=== PATIENT | male | born 1950 | race Caucasian/White ===

== ENCOUNTER 2016-08-29 11:14 | Observation (INO) | payer MEDICARE ==
[~2016-08-29] VITALS: Ht 205.7 cm; Wt 96.6 kg
[2016-08-29] VITALS (17 sets, daily range): BP systolic 90–114; BP diastolic 44–68; BMI 22.8
[~2016-08-29 11:14] MED LIST: BACTRIM DS TABL1 TAB PO; COLACE100 MG PO; DOXYCYCLINE HY100 M2 PO; ELIQUIS2.5 MG PO; HYDROCODON-ACE1 EAC7 PO; HYDROCODONE-APA1 TAB PO; IBRUTINIB PO; IMBRUVICA140 MG PO; K-DUR20 MEQ PO; KLONOPIN1 MG PO; LASIX40 MG PO; LEVAQUIN500 MG PO; NORCO 10/325 TA1 TA1 PO; PROSTATE PILL; ULTRAM50 MG PO; VALIUM5 MG PO
[2016-08-29] MEDS ORDERED: ULTRAM50 MG PO (11:48)
[2016-08-29] MEDS ORDERED: IMBRUVICA140 MG PO (11:49)
[2016-08-29 12:14] LABS: BASOPHILS 1.4 % (0.0-2.0); EOSINOPHILS 0.5 % (0-7); HEMATOCRIT 23.7 % (42.0-54.0); HEMOGLOBIN 7.7 g/dL (13.5-17.5); IMMATURE GRANULOCYTES 3.3 % (0-5); LYMPHOCYTES 59.6 % (15-50); MCH 28.9 pg (26.0-34.0); MCHC 32.5 g/dL (31.0-37.0); MCV 89.1 fL (80.0-100.0); MEAN PLATELET VOLUME 10.5 fL (7.4-10.4); MONOCYTES 4.7 % (2-11); NEUTROPHILS 30.5 % (40-80); RBC 2.66 10x6/uL (4.20-6.10); RDW 22.5 % (11.5-14.5); WBC 9.3 10x3/uL (4.8-10.8)
[2016-08-29 12:15] LABS: PLATELET COUNT 170 10x3/uL (130-400)
[2016-08-29 12:37] LABS: ALBUMIN 3.7 g/dL (3.4-5.0); ALKALINE PHOSPHATASE 66 U/L (46-116); ALT (SGPT) 15 U/L (10-68); CALC OSMOLALITY 271 mosm/kg (275-300); CALCIUM 8.6 mg/dL (8.5-10.1); CARBON DIOXIDE 29.1 mmol/L (21.0-32.0); CHLORIDE - SERUM 101 mmol/L (98-107); CREATININE - SERUM 0.8 mg/dL (0.6-1.3); GLUCOSE 100 mg/dL (74-106); PROTEIN - SERUM 6.1 g/dL (6.4-8.2); SODIUM 135 mmol/L (136-145); UREA NITROGEN 17 mg/dL (7-18); eGFR NON AFRICAN AMERICAN > 90 mL/min (90-120)
--- NOTE | 2016-08-29 13:33 | NUR ---
Patient Name: ISADORA ROLDAN Admission Status: Urgent Accout number: [id number] Admission Date: 08-29-2016 : 1950 Admission Diagnosis: Attending: CARMEN Current LOS: 1 Anticipated DC Date: 09-03-2016 Planned Disposition: Home with Home Health Primary Insurance: MEDICARE A & B Discharge Planning Comments: CM MET WITH PATIENT REGARDING D/C NEEDS AND PLANS. PATIENT STATED HE LIVES AT HOME WITH HIS (TAYO) AND SHE WILL DRIVE HIM HOME WHEN DISCHARGED. PATIENT STATED HE IS INDEPENDENT WITH HIS CARE AND HAS A WALKER AT HOME. PATIENT IS CURRENT WITH [facility]/PHYSICAL THERAPY. PATIENTS PCP IS DR. URIBE AND PHARMACY IS [facility] AT [facility]. CM WILL CONTINUE TO FOLLOW PATIENT WITH D/C NEEDS AND PLANS. PCP DR. RONY FAJARDO [facility]ARMACY AT [facility]- [phone] TAYO (SPOUSE) [phone] [facility]- [phone] Reconstructive Dentist: Lidia Chamberlain Is the patient Alert and Oriented? Yes 0 * How many steps to enter\exit or inside your home? 1 FLT W/R 0 * PCP DR. URIBE 0 * Pharmacy [facility] AT [facility] 0 * Preadmission Environment Home with Family 0 * ADLs Independent 0 * Equipment Walker 0 * List name and contact numbers for known caregivers / representatives who currently or will assist patient after discharge: TAYO (SPOUSE) [phone] * Community resources currently utilized None 0 * Additional services required to return to the preadmission environment? Yes 0 * Can the patient safely return to the preadmission environment? Yes 0 * Has this patient been hospitalized within the prior 30 days at any hospital? No 0 Grand Total: 0
--- NOTE | 2016-08-29 14:14 | NUR ---
BED ALARM ON APPLIED DUE TO BENADRYL PRE OP TRANSFUSION AND SEDATION FOR SAFETY. PT AWARE AND UNDERSTANDING
[2016-08-29 14:21] LABS: APPEARANCE CLEAR (CLEAR); BACTERIA FEW /hpf (NONE SEEN); BILIRUBIN NEGATIVE (NEGATIVE); COLOR YELLOW (YELLOW); EPITHELIAL CELLS OCC /hpf (0-5); GLUCOSE NEGATIVE (NEGATIVE); KETONE NEGATIVE (NEGATIVE); LEUKOCYTE ESTERASE NEGATIVE (NEGATIVE); NITRITE NEGATIVE (NEGATIVE); PROTEIN NEGATIVE (NEGATIVE); RED CELLS - URINE RARE /hpf (0-5); SPECIFIC GRAVITY 1.015 (1.005-1.020); UROBILINOGEN NORMAL (NORMAL); WHITE CELLS - URINE RARE /hpf (0-5)
--- NOTE | 2016-08-29 19:00 | NUR ---
BEDSIDE REPORT RECEIVED AND CARE OF PT ASSUMED. PT SITTING UP IN CHAIR WITH PRBC'S INFUSING TO RIGHT FA. WILL MONITOR CLOSLEY FOR NEEDS.
--- NOTE | 2016-08-29 20:52 | NUR ---
HS MEDICATIONS GIVEN TO INCLUDE NORCO PER REQUEST FOR CHRONIC BACK PAIN. WILL CONTINUE TO MONITOR FOR NEEDS.
--- NOTE | 2016-08-29 21:15 | NUR ---
INFUSION OF PRBC'S COMPLETE. VITALS STABLE AND PT IS AFEBRILE.
[2016-08-30] VITALS: BP 114/59; BP 131/70
--- NOTE | 2016-08-30 00:53 | NUR ---
GAVE NORCO PER REQUEST FOR BACK PAIN. WILL MONITOR FOR EFFECTIVENESS. SIDE RAILS UP X2 FOR SAFETY.
[2016-08-30 04:00] VITALS: BP 94/61
[2016-08-30 07:35] LABS: BASOPHILS 1.4 % (0.0-2.0); EOSINOPHILS 2.3 % (0-7); HEMATOCRIT 27.9 % (42.0-54.0); HEMOGLOBIN 9.1 g/dL (13.5-17.5); IMMATURE GRANULOCYTES 2.7 % (0-5); LYMPHOCYTES 58.7 % (15-50); MCHC 32.6 g/dL (31.0-37.0); MCV 88.9 fL (80.0-100.0); MEAN PLATELET VOLUME 9.5 fL (7.4-10.4); MONOCYTES 6.7 % (2-11); NEUTROPHILS 28.2 % (40-80); PLATELET COUNT 136 10x3/uL (130-400); RBC 3.14 10x6/uL (4.20-6.10); RDW 21.3 % (11.5-14.5)
--- NOTE | 2016-08-30 07:40 | NUR ---
PATIENT AWAKE, ALERT AND ORIENTED X'S 4. RESPIRATIONS ARE EVEN AND UNLABORED ON ROOM AIR. PATIENT SITTING UP IN THE CHAIR. PATIENT DENIES NEEDS AT THIS TIME.
[2016-08-30 07:47] LABS: CALCIUM 9.1 mg/dL (8.5-10.1); CARBON DIOXIDE 29.3 mmol/L (21.0-32.0); CREATININE - SERUM 0.6 mg/dL (0.6-1.3); GLUCOSE 92 mg/dL (74-106); UREA NITROGEN 13 mg/dL (7-18); eGFR NON AFRICAN AMERICAN > 90 mL/min (90-120)
[2016-08-30 07:56] VITALS: BP 132/57
[2016-08-30 07:56] LABS: CALC OSMOLALITY 277 mosm/kg (275-300); CHLORIDE - SERUM 104 mmol/L (98-107); POTASSIUM - SERUM 3.7 mmol/L (3.5-5.1); SODIUM 139 mmol/L (136-145)
--- NOTE | 2016-08-30 08:00 | NUR ---
PT AWAKE AND ALERT NO ACUTE DISTRESS NOTED VOICES ALL NEEDS TO STAFF.
--- NOTE | 2016-08-30 11:00 | NUR ---
PT AWAKE AND ALERT ORINETED X 3 NO DISTRESS WANTS TO GO HOME. AWAITING REPLY FROM DR CHADWICK
[2016-08-30 12:02] VITALS: BP 104/63
[2016-08-30 12:42] VITALS: Ht 205.7 cm; Wt 96.6 kg
[2016-08-30] MEDS ORDERED: HYDROCODON-ACE1 EAC7 PO (15:24)
[2016-08-30] MEDS ORDERED: COLACE100 MG PO (15:24)
[2016-08-30] MEDS ORDERED: IMBRUVICA140 MG PO (15:24)
[2016-08-30] MEDS ORDERED: ULTRAM50 MG PO (15:24)
[2016-08-30] MEDS ORDERED: BACTRIM DS TABL1 TAB PO (15:24)
[2016-08-30] MEDS ORDERED: KLONOPIN1 MG PO (15:24)
--- NOTE | 2016-08-30 15:30 | NUR ---
RECIEVED TO FROM DR JONES TO DISCHARGE TO HOME CONTINUE HOME MEDS AND COME TO CLINIC TO PIC UP REFILL PERSCRIPTIONS.
[2016-08-30 15:31] VITALS: BP 117/63
--- NOTE | 2016-08-30 16:45 | NUR ---
PT DISCHARGED AT THIS [facility] IV D/C CATH TIP INTACT PRESSURE DRESSING APPLIED TO PREVENT BLEEDING.
[2016-09-28] MEDS ORDERED: ELIQUIS2.5 MG PO (12:18)
[2016-11-02] MEDS ORDERED: MULTIPLE VITAMI1 TA1 PO (11:50)
== END 2016-08-30 17:06 | disposition home health service (06) ==
LOC: D.MS 11:14 → OBSVTIME 11:14 → D.SDCHOLD 11:14 → D.MS 11:33
PROVIDERS: ADMIT Legal Medicine
DX: C91.10 Chronic lymphocytic leukemia of B-cell type not having achieved remission (principal); R50.9 Fever, unspecified; M32.9 Systemic lupus erythematosus, unspecified; D63.0 Anemia in neoplastic disease

== ENCOUNTER → 2016-09-27 15:17 | Outpatient (CLI) | payer MEDICARE ==
[2016-08-30 12:42] VITALS: BMI 22.8
[~2016-09-27 15:17] MED LIST changes: +BACTRIM 400-801 TAB PO; +MULTIPLE VITAMI1 TA1 PO
== END | disposition home or self-care (01) ==
LOC: D.US 15:17
DX: I82.403 Acute embolism and thrombosis of unspecified deep veins of lower extremity, bilateral (principal)

== ENCOUNTER 2016-09-28 14:07 | Outpatient (CLI) | payer MEDICARE ==
[~2016-09-28] VITALS: Ht 205.7 cm; Wt 97.7 kg
[2016-09-28 12:49] VITALS: BP 106/60; Ht 205.7 cm; Wt 97.7 kg
[~2016-09-28 14:07] MED LIST changes: -BACTRIM 400-801 TAB PO; -MULTIPLE VITAMI1 TA1 PO
--- NOTE | 2016-09-28 18:57 | NUR ---
1800 IV DC WITH CATHER TIP INTACT
[2016-11-02] MEDS ORDERED: MULTIPLE VITAMI1 TA1 PO (11:50)
== END 2016-09-28 18:30 | disposition home or self-care (01) ==
LOC: D.OPS 14:07
DX: C91.10 Chronic lymphocytic leukemia of B-cell type not having achieved remission (principal); Z91.81 History of falling; D80.1 Nonfamilial hypogammaglobulinemia; R53.81 Other malaise; R53.83 Other fatigue; R11.0 Nausea

== ENCOUNTER 2016-11-02 11:55 | Outpatient (CLI) | payer MEDICARE ==
[~2016-11-02] VITALS: Ht 205.7 cm; Wt 104.5 kg
[~2016-11-02 11:55] MED LIST changes: +MULTIPLE VITAMI1 TA1 PO
[2016-11-02 11:57] VITALS: BP 114/62; Ht 205.7 cm; Wt 104.5 kg
--- NOTE | 2016-11-02 12:00 | NUR ---
1135-STARTED PERIPHERAL IV TO RIGHT WRIST TIMES ONE ATTEMPT WITH 20G.
--- NOTE | 2016-11-02 16:54 | NUR ---
1545--DC'D IV. BEE GIL 1139--DISCHARGE INSTRUCTIONS GIVEN, PT OFF UNIT VIA . BEE GIL
== END 2016-11-02 16:45 | disposition home or self-care (01) ==
LOC: D.OPS 11:55
DX: C91.10 Chronic lymphocytic leukemia of B-cell type not having achieved remission (principal)

== ENCOUNTER → 2016-11-28 12:02 | Outpatient (CLI) | payer MEDICARE ==
[2016-11-28 15:37] VITALS: BP 96/42; Ht 205.7 cm
--- NOTE | 2016-11-28 15:40 | NUR ---
1510 1ST UNIT BLOOD CHECKED AT BEDSIDE BY THIS NURSE AND ASHLEY TAPIA RN. INITIATED BY ALARIS PUMP AT 50/CC/HR. CALL LIGHT AT BEDSIDE. URINAL PROVIDED. DATASCOPE MONITORING. PT HAS ATE LUNCH. TIME FRAMES FOR BLOOD AND POST STAY GIVEN.
--- NOTE | 2016-11-28 15:42 | NUR ---
1525 DENIES PROBLEMS WITH BLOOD RATE INCREASED TO 125/CC/HR
--- NOTE | 2016-11-28 15:45 | NUR ---
1540 PT DOSING, AROUSES WITH CHECKS, DENIES PROBLEMS WITH BLOOD. RATE INCREASED TO 200/CC/HR.
--- NOTE | 2016-11-28 18:01 | NUR ---
1655 1ST UNIT COMPLETED LINE BEING FLUSHED WITH NS PT VOIDS 200CC YELLOW URINE IN URINAL. 1715 2ND UNIT CHECKED AT BEDSIDE BY NAIDA VAZQUEZ RN, INITIATED BY ALARIS PUMP AT 50/CC/HR. SUPPER TRAY SERVED. 1730 DENIES PROBLEMS WITH TRANSFUSION, EATING, RATE INCREASED TO 125/CC/HR. 1745 ATE 80% DENIES PROBLEMS, RATE INCREASED TO 200/CC/HR DOSING
--- NOTE | 2016-11-28 18:47 | NUR ---
1830 PT VOIDS 240 CC YELLOW URINE, DENIES NEEDS, IV SITE PATENT.
--- NOTE | 2016-11-28 19:14 | NUR ---
191 BLOOD COMPLETED, LINE BEING FLUSHED WITH NS.
--- NOTE | 2016-11-28 20:37 | NUR ---
2010 POST V.S. CHECK GOOD. IV DC'D WITH CATH INTACT. PT. VOIDS. RELEASED. AMB. PER PT. CHOICE.
== END | disposition home or self-care (01) ==
LOC: D.OPS 12:02
DX: D64.9 Anemia, unspecified (principal); C91.10 Chronic lymphocytic leukemia of B-cell type not having achieved remission

== ENCOUNTER 2016-12-14 08:45 | Outpatient (CLI) | payer MEDICARE ==
[~2016-12-14] VITALS: Ht 205.7 cm; Wt 96.8 kg
--- NOTE | 2016-12-14 11:30 | NUR ---
FIRST UNIT OF PRBC'S UP WITH NS AND BLOOD TUBING THROUGH 20 G IV STARTED IN LEFT FOREARM PER NAIDA VAZQUEZ RN. LUNCH TRAY SERVED. HAS BEEN PREMEDICATED ORDERED.
--- NOTE | 2016-12-14 12:00 | NUR ---
PRBC'S INFUSING WITHOUT SIGNS OF REACTION.
[2016-12-14] MEDS ORDERED: BACTRIM 400-801 TAB PO (13:44)
[2016-12-14 13:57] VITALS: BP 120/59; Ht 205.7 cm; Wt 96.8 kg
--- NOTE | 2016-12-14 14:25 | NUR ---
RESPIRATIONS WITHOUT DISTRESS. IV LINE FLUSHED WITH NS. SECOND UNIT OF PRBC'S UP WITH NS AND BLOOD TUBING. SITTING IN CHAiR READING A BOOK.
--- NOTE | 2016-12-14 16:30 | NUR ---
PRBC'S COMPLETED. LINE FLUSHED WITH NS. NO SIGNS OF TRANSFUSION REACTION.
--- NOTE | 2016-12-14 17:30 | NUR ---
NO SIGNS OF TRANSFUSION REACTION ONE HOUR AFTER FINISHING 2ND UNIT. DISCHARGE INSTRUCTIONS GIVEN, VOICED UNDERSTANDING. IV REMOVED INTACT. DISCHARGED TO HOME.
== END 2016-12-14 17:30 | disposition home or self-care (01) ==
LOC: D.OPS 08:45
DX: D64.9 Anemia, unspecified (principal); Z01.812 Encounter for preprocedural laboratory examination

== ENCOUNTER 2017-01-04 10:46 | Outpatient (CLI) | payer MEDICARE ==
[~2017-01-04] VITALS: Ht 205.7 cm; Wt 96.8 kg
[~2017-01-04 10:46] MED LIST changes: +BACTRIM 400-801 TAB PO
[2017-01-04 12:19] VITALS: BP 98/55; Ht 205.7 cm; Wt 96.8 kg
--- NOTE | 2017-01-04 12:44 | NUR ---
#20 GUAGE IV STARTED X 1 STICK. BENADRYL 25MG IV GIVEN. TYLENOL 500MG PO GIVEN. REGULAR LUNCH TRAY SERVED.
--- NOTE | 2017-01-04 13:00 | NUR ---
FIRST UNIT OF PRBC STARTED WITH NS AND BLOOD TUBING. EATING REGULAR LUNCH.
--- NOTE | 2017-01-04 19:18 | NUR ---
IV DC WITH CATHER TIP INTACT
[2017-01-05] MEDS ORDERED: AMOXICILLIN500 M1 PO (19:38)
[2017-01-05] MEDS ORDERED: COLACE100 MG PO (19:41)
[2017-01-05] MEDS ORDERED: LEVAQUIN500 MG PO (19:42)
== END 2017-01-04 19:00 | disposition home or self-care (01) ==
LOC: D.OPS 10:46
DX: D64.9 Anemia, unspecified (principal)

== ENCOUNTER 2017-01-05 18:50 | Inpatient (IN) | payer MEDICARE ==
[~2017-01-05] VITALS: Ht 205.7 cm; Wt 96.2 kg
[2017-01-05 19:32] LABS: BASOPHILS 2.2 % (0-2); EOSINOPHILS 1.7 % (0-7); HEMATOCRIT 24.1 % (42.0-54.0); HEMOGLOBIN 7.7 g/dL (13.5-17.5); LYMPHOCYTES 60.6 % (15-50); MCH 28.4 pg (26.0-34.0); MCV 88.9 fL (80.0-100.0); MONOCYTES 10.4 % (2-11); NEUTROPHILS 18.1 % (40-80); RBC 2.71 10x6/uL (4.20-6.10); RDW 19.2 % (11.5-14.5); WBC 5.9 10x3/uL (4.8-10.8)
[2017-01-05] MEDS ORDERED: AMOXICILLIN500 M1 PO (19:38)
[2017-01-05] MEDS ORDERED: COLACE100 MG PO (19:41)
[2017-01-05 19:42] LABS: PLATELET COUNT 90 10x3/uL (130-400)
[2017-01-05] MEDS ORDERED: LEVAQUIN500 MG PO (19:42)
[2017-01-05 19:56] LABS: ALBUMIN 3.2 g/dL (3.4-5.0); ALKALINE PHOSPHATASE 83 U/L (46-116); ALT (SGPT) 12 U/L (10-68); BILIRUBIN - TOTAL 0.71 mg/dL (0.2-1.3); CALC OSMOLALITY 279 mosm/kg (275-300); CARBON DIOXIDE 30.3 mmol/L (21.0-32.0); CHLORIDE - SERUM 102 mmol/L (98-107); CREATININE - SERUM 0.8 mg/dL (0.6-1.3); GLUCOSE 99 mg/dL (74-106); POTASSIUM - SERUM 4.1 mmol/L (3.5-5.1); PROTEIN - SERUM 5.5 g/dL (6.4-8.2); SODIUM 140 mmol/L (136-145); UREA NITROGEN 14 mg/dL (7-18); eGFR NON AFRICAN AMERICAN > 90 mL/min (90-120)
[2017-01-05 20:59] LABS: APPEARANCE CLEAR (CLEAR); BILIRUBIN NEGATIVE (NEGATIVE); COLOR YELLOW (YELLOW); GLUCOSE NEGATIVE (NEGATIVE); KETONE NEGATIVE (NEGATIVE); LEUKOCYTE ESTERASE TRACE (NEGATIVE); NITRITE NEGATIVE (NEGATIVE); PROTEIN TRACE mg/dL (NEGATIVE); SPECIFIC GRAVITY 1.015 (1.005-1.020); UROBILINOGEN NORMAL (NORMAL)
[2017-01-05 21:00] LABS: BACTERIA FEW /hpf (NONE SEEN); EPITHELIAL CELLS 0-5 /hpf (0-5); RED CELLS - URINE 0-5 /hpf (0-5); WHITE CELLS - URINE 0-5 /hpf (0-5)
[2017-01-05 22:47] VITALS: BP 96/45; BMI 22.7
[2017-01-06] VITALS: BP 102/50
[2017-01-06 04:00] VITALS: BP 101/50
--- NOTE | 2017-01-06 09:00 | NUR ---
ASSESSMENT PER FLOW SHEET.PT WITHOUT DISTRESS.CALL LIGHT IN REACH
[2017-01-06 09:06] VITALS: BP 116/66
--- NOTE | 2017-01-06 09:40 | NUR ---
PAIN MEDS ORDERED
[2017-01-06 11:48] VITALS: BP 101/46
--- NOTE | 2017-01-06 14:05 | NUR ---
MEDS ORDERED FOR PAIN.REQUEST NORCO WHEN TIME.MONITOR
[2017-01-06 16:14] VITALS: BP 115/51
--- NOTE | 2017-01-06 18:32 | NUR ---
FAMILY AT BEDSIDE,REMAINS WITHOUT CHANGE.WITHOUT DISTRESS.CONT PLAN OF CARE
[2017-01-06 19:00] VITALS: BP 124/49
--- NOTE | 2017-01-06 19:27 | NUR ---
REC'D PATIENT LYING IN BED RESTING. REPORTED PAIN IN HIS FEET BUT DID NOT GIVE ME A SCORE. IS WANTING HIS PAIN MEDS. WILL ADMINSITER PRESCRIBED. ALERT AND ORIENTED X4. DENIES FURTHER NEEDS AT THIS TIME. INSTRUCTED TO CALL IF NEEDED ANYTHING. BED LOW, LOCKED, CALL LIGHT IN REACH.
--- NOTE | 2017-01-06 23:15 | NUR ---
RESTING WITH EYES CLOSED, NO DISTRESS NOTED, FALL PRECAUTIONS IN PLACE, CL IN REACH
--- NOTE | 2017-01-06 23:50 | NUR ---
PATIENT IS RESTING IN BED. NO DISTRESS NOTED. WILL CONT TO MONITOR. BED LOW, LOCKED, CALL LIGHT IN REACH.
--- NOTE | 2017-01-07 06:11 | NUR ---
PATIENT IS RESTING IN BED. NO DISTRESS NOTED. INSTRUCTED TO CALL IF NEEDED ANYTHING. VERBALIZED UNDERSTANDING. BED LOW, LOCKED, CALL LIGHT IN REACH.
[2017-01-07 08:08] VITALS: BP 113/53
--- NOTE | 2017-01-07 08:52 | NUR ---
PT ASSESSMENT COMPLETE ON AM ROUNDS NO ACUTE DISTRESS NOTED AWAKE AND ALERT ORINETED X 3 LUNGS CLAER JULIATERALLY HAS COMPLAINT OF PAIN TO BLE. TREATED PER ORDER WITH PAIN MEDS NEEDED. JERARDO TUBBS
--- NOTE | 2017-01-07 09:30 | NUR ---
PATIENT IN MID CAR POSITION RESTING WITH EYES CLOSED. RESPIRATIONS EVEN AND UNLABORED. SIDE RAILS UP X2. BED IN LOW POSITION. CALL LIGHT IN REACH.
--- NOTE | 2017-01-07 11:07 | NUR ---
PT PIV INFILTRATED TO LEFT FORARM. REDNESS AND MILD SWELLING NOTED AT INSERTION SITE. PIV RESITED TO RIGHT INNER FORARM 20 GA X 1STICK
[2017-01-07 12:11] VITALS: BP 102/57
[2017-01-07 12:40] VITALS: Ht 205.7 cm; Wt 96.2 kg
[2017-01-07 15:40] VITALS: BP 162/58
--- NOTE | 2017-01-07 16:00 | NUR ---
PT NOTED TO HAVE ELEVATED TEMP 103.[address] CHADWICK ORDER FOR TYLENOL 500 MG PO Q6 HRS PRN ALSO HAS ICE PACKS WRAPPED TO NECK AND HEAD. ROOM COOLED AT SIDE.
--- NOTE | 2017-01-07 16:25 | NUR ---
TYLENOL PO PER TEMP OF 103.5. FAMILY IN ROOM. CALL LIGHT IN REACH.
--- NOTE | 2017-01-07 18:00 | NUR ---
JOSE E SINGER WITH TEMP OF [address] CHADWICK NEW ORDER FOR MOTRIN 800 MG PO Q8HRS NEEDED FOR ELEVATED TEMPERATURE. AWAITING ON MED TO BE LOADED PER PHARMACY
--- NOTE | 2017-01-07 18:30 | NUR ---
PT BEING RUDE WITH STAFF ORDERED KEY ENTRY OPERATOR STAFF OUT OF ROOM. KEY ENTRY OPERATOR WALKED INTO ROOM TO ANSWER CALL LIGHT AND ASKED HOW HE HAS BEED BEING ASSISTED HOWEVER THE STATED WE DONT NEED YOUR ATTITUDE IN HERE GET OUT. KEY ENTRY OPERATOR ATTEMPTED TO EXPLAIN THAT SHE WAS NOT BEING RUDE JUST ASKING A QUESTION. WAS STILL RUDE CAME TO THE DESK AT NURSES STATION AND STATED " I WANT TO KNOW THE NAME OF THE LITTLE ORIENTAL LOOKING GIRL".
--- NOTE | 2017-01-07 18:40 | NUR ---
THIS NURSE ENTERED ROOM TO GIVE MOTRIN [address] CHADWICK THIS NURSE ENTERED ROOM PT WAS COMING FROM RESTROOM AMBULATING UNASSISTED. BEGAN TO SPEAK TO THIS NURSE IN A THREATNING TONE. STATES" DR CHADWICK JUST TOLD US THAT HE SAID TO PACK MY IN ICE AND YOU REFUSED TO DO IT. WHAT DO YOU HAVE TO SAY FOR YOURSELF?" THIS NURSE REPLIED THAT IT WAS NOT INFACT THE ORDER I RECIEVED FROM DR CHADWICK AND I WOULD CERTAINLY CLEAR THAT UP WITH HIM HOWEVER I WAS IN THE ROOM TO GIVE DOSING OG IBUPROFEN PER HIS ORDER AND THIS NURSE EXPLAINED ONCE AGAIN TO WHY IT IS BETTER TO NOT FORCIBLY DECREASE TEMP TO MUCH TO FAST IT WILL CAUSE CRAMPING AND PAIN TO PT. THEN STATES HE NEEDS TO BE IN ICE. THIS NURSE AT THAT TIME SAYS IF YOU FEEL IT NECESSARY TO DO THAT GO AHEAD. MY SHIFT IS ABOUT OVER. TO THIS THE REPLIED " I AM WRITING A LETTER TO THE FACE AND FILL PACKER ABOUT YOUR ATTITUDE. I AM A VERY GOOD LETTER PLATE INSPECTOR AND I WILL LET THEM KNOW HOW YOU ARE RUDE AND HATEFUL." THIS NURSE SAID TO I AM NOT TRYING TO BE RUDE WITH YOU TO WHICH THE CUT THIS NURSE OFF WHILE SPEAKING AND STATES " YOU NEED TO STOP TALKING YOU ARE JUST MAKING THIS WORSE" THIS NURSE REPLIED YES MI I WILL GIVE HIM HIS IBUPROPEN AND LEAVE THE ROOM. AND THIS NURSE LEFT ROOM AFTER MED GIVEN. SPOKE WITH DR CHADWICK IN [facility] ABOUT EXCHANGE AND ASKED IF HE HAD INFACR ORDERED ME TO PACK PT IN ICE AND THIS NURSE MISUNDERSTOD. TO WHICH DR CHADWICK REPLIED NO.
[2017-01-07 19:00] VITALS: BP 112/51
[2017-01-07 20:00] VITALS: BP 112/51
--- NOTE | 2017-01-07 21:09 | NUR ---
PATIENT SITTING UP IN BED. ALERT AND ORIENTED. NO SIGNS OF DISTRESS NOTED. SCHEDULED MEDS GIVEN. SHIFT ASSESSMENT COMPLETED. DENIES ANY NEEDS AT THIS TIME. BED LOW CALL LIGHT IN REACH
[2017-01-08] VITALS (16 sets, daily range): BP systolic 89–108; BP diastolic 50–66
[2017-01-08 07:29] LABS: HEMATOCRIT 20.9 % (42.0-54.0); MCH 28.9 pg (26.0-34.0); MCHC 32.5 g/dL (31.0-37.0); MCV 88.9 fL (80.0-100.0); RBC 2.35 10x6/uL (4.20-6.10); RDW 18.7 % (11.5-14.5); WBC 5.7 10x3/uL (4.8-10.8)
[2017-01-08 07:37] LABS: PLATELET COUNT 52 10x3/uL (130-400)
[2017-01-08 07:38] LABS: HEMOGLOBIN 6.8 g/dL (13.5-17.5)
[2017-01-08 08:03] LABS: ALBUMIN 2.7 g/dL (3.4-5.0); ALKALINE PHOSPHATASE 87 U/L (46-116); ALT (SGPT) 12 U/L (10-68); BILIRUBIN - TOTAL 1.24 mg/dL (0.2-1.3); CALC OSMOLALITY 277 mosm/kg (275-300); CALCIUM 8.6 mg/dL (8.5-10.1); CARBON DIOXIDE 30.4 mmol/L (21.0-32.0); CHLORIDE - SERUM 106 mmol/L (98-107); CREATININE - SERUM 0.7 mg/dL (0.6-1.3); GLUCOSE 96 mg/dL (74-106); POTASSIUM - SERUM 3.1 mmol/L (3.5-5.1); PROTEIN - SERUM 5.7 g/dL (6.4-8.2); SODIUM 140 mmol/L (136-145); UREA NITROGEN 11 mg/dL (7-18); eGFR NON AFRICAN AMERICAN > 90 mL/min (90-120)
[2017-01-08 08:38] LABS: BASOPHILS 3 % (0-2); LYMPHOCYTES 46 % (15-50); MONOCYTES 4 % (2-11); NEUTROPHILS 25 % (40-80); PLATELET ESTIMATE DECREASED
[2017-01-08 08:40] LABS: ANISOCYTOSIS 1+; POIKILOCYTOSIS 1+
[2017-01-08 08:41] LABS: HYPOCHROMASIA 1+; SCHISTOCYTES 1+
--- NOTE | 2017-01-08 08:55 | NUR ---
MEDS ORDERED.PT STATES HE TAKES ONLY 2 CHEMO PILLS AT THIS TIME
--- NOTE | 2017-01-08 09:00 | NUR ---
ASSESSMENT PER FLOW SHEET.PT WITHOUT DISTRESS.CALL LIGHT IN REACH
--- NOTE | 2017-01-08 12:57 | NUR ---
Patient Name: ISADORA ROLDAN Admission Status: Elective Accout number: [id number] Admission Date: 01-05-2017 : 1950 Admission Diagnosis:PNEUMONIA, UNSPECIFIED ORGANISM Attending: CARMEN Current LOS: 3 Anticipated DC Date: 01-10-2017 Planned Disposition: Home Primary Insurance: MEDICARE A & B Discharge Planning Comments: CM MET WITH PATIENT REGARDING D/C NEEDS AND PLANS. PATIENT STATED HE LIVES WITH HIS (TAYO) AND SHE WILL DRIVE HIM HOME AT DISCHARGE. PATIENT STATED THERE ARE 2 STEPS W/RAILS TO ENTER HOME AND 1 STAIRCASE W/RAILING IN THE HOME. PATIENT IS INDEPENDENT WITH HIS CARE AND HAS A CANE (USES OUTSIDE) AND A WALKER AT HOME. PATIENT ALSO HAS A BUILT IN SHOWER CHAIR. PATIENTS PCP IS DR. URIBE AND SEES DR. CHADWICK. PATIENT USES [email or web address]. PATIENT HAS HAD [facility] BUT HAS REFUSED THE NEED OF HOME HEALTH AT THIS TIME. CM WILL CONTINUE TO FOLLOW PATIENT WITH D/C NEEDS AND PLANS. PCP DR. URIBE/DR. NETTA FAJARDO AT THE [facility] [phone] TAYO () [phone] Battery Recharger: Lidiachilo Chamberlain Is the patient Alert and Oriented? Yes 0 * How many steps to enter\exit or inside your home? 8 W/RAILS 0 * PCP DR. URIBE/DR. CHADWICK 0 * Pharmacy [facility] 0 * Preadmission Environment Home with Family 0 * ADLs Independent 0 * Equipment Cane Walker 0 * List name and contact numbers for known caregivers / representatives who currently or will assist patient after discharge: TAYO () [phone] * Community resources currently utilized None 0 * Additional services required to return to the preadmission environment? Yes 0 * Can the patient safely return to the preadmission environment? Yes 0 * Has this patient been hospitalized within the prior 30 days at any hospital? No 0 Grand Total: 0
--- NOTE | 2017-01-08 13:40 | NUR ---
CONSENTS TO CHART FOR BLOOD.PT HAS REMAINED WITHOUT DISTRESS, AFEBRILE .MONITOR
--- NOTE | 2017-01-08 14:05 | NUR ---
IV ABX VANC AND ZOSYN COMPLETE WILL INITIATE BLOOD.
--- NOTE | 2017-01-08 14:30 | NUR ---
UNIT 1 OF 2 PRBC'S INITIATED.PT WITHOUT REACTIONS.CALL LIGHT IN REACH
--- NOTE | 2017-01-08 17:15 | NUR ---
BLOOD COMPLETE.REMAINS WITHOUT REACTIONS.
--- NOTE | 2017-01-08 17:45 | NUR ---
UNIT 2 OF 2 PRBC'S INITIATED.PT WITHOUT DISTRESS.DENIES NEEDS.CALL LIGHT IN REACH
--- NOTE | 2017-01-08 18:34 | NUR ---
REMAINS WITHOUT REACTIONS,UNIT 2 OF 2 INFUSING.CONT PLAN OF CARE
--- NOTE | 2017-01-08 20:34 | NUR ---
BOBBIT RESTING IN BED. BLOOD TRANSFUSION COMPLETED. VSS. SCHEDULED MEDS GIVEN. SHIFT ASSESSMENT COMPLETED. DENIES ANY NEEDS AT THIS TIME. BED LOW. CALL LIGHT IN REACH
[2017-01-09 04:00] VITALS: BP 122/62
--- NOTE | 2017-01-09 04:18 | NUR ---
EYES CLOSED RESPIRATIONS WITH EASE AND UNLABORED. SR UP X2 CALL LIGHT WITHIN REACH.
--- NOTE | 2017-01-09 07:00 | NUR ---
REPORT RECEIVED FROM SIGNALS OFFICER NURSE. CALL LIGHT IN REACH.
[2017-01-09 07:48] VITALS: BP 104/46
--- NOTE | 2017-01-09 08:40 | NUR ---
ASSESSMENT COMPLETED. NORCO PO WITH AM MEDS D/T PAIN OF 8. SCDs PLACED TO BLE. PASSWORD OBTAINED AND PLACED IN COMPUTER. CALL LIGHT IN REACH. WILL CONTINUE WITH PLAN OF CARE.
--- NOTE | 2017-01-09 09:32 | NUR ---
IV TUBING CHANGED PER HOSPITAL POLICY. LYING IN BED WITH EYES CLOSED AT THIS TIME. RESP EVEN AND UNLABORED. CALL LIGHT IN REACH.
--- NOTE | 2017-01-09 09:54 | NUR ---
PATIENT IS NOW REFUSING SCDs. STATES "I DON'T LIKE THE WAY THEY FEEL."
--- NOTE | 2017-01-09 11:09 | NUR ---
VANCOMYCIN IVPB. TRAMADOL AND FLORAJEN PO. TOOTHPASTE TAKEN TO PATIENT.
[2017-01-09 12:13] VITALS: BP 102/44
--- NOTE | 2017-01-09 13:24 | NUR ---
WAITING ON PHARMACY TO BRING DEX.
--- NOTE | 2017-01-09 14:55 | NUR ---
DEX SIMPSON. CALL LIGHT IN REACH.
[2017-01-09 15:35] VITALS: BP 119/64
--- NOTE | 2017-01-09 16:30 | NUR ---
DENIES NEEDS AT THIS TIME. CALL LIGHT IN REACH.
--- NOTE | 2017-01-09 18:00 | NUR ---
SITTING IN BED AT THIS TIME. RESPIRATIONS EVEN AND NON LABORED. DENIES NEEDS AT PRESENT TIME. CALL LIGHT IN REACH, WILL CONTINUE WITH PLAN OF CARE.
--- NOTE | 2017-01-09 18:13 | NUR ---
NO CHANGES IN INITIAL ASSESSMENT. STILL REFUSES SCDs. CALL LIGHT IN REACH. WILL CONTINUE WITH PLAN OF CARE.
--- NOTE | 2017-01-09 19:00 | NUR ---
BEDSIDE REPORT RECEIVED AND CARE OF PT ASSUMED. PT LYING IN HIGH CAR'S POSITION WATCHING TV. IV IN RIGHT FA PATENT WITH NS INFUSING AT 50 ML / HR. WILL MONITOR CLOSELY FOR NEEDS.
[2017-01-09 20:00] VITALS: BP 149/68
--- NOTE | 2017-01-09 21:15 | NUR ---
HS MEDICATIONS GIVEN TO INCLUDE X2 NORCO 5/325 PER PT REQUEST FOR PAIN. WILL MONITOR FOR EFFECTIVENESS. SIDE RAILS UP X2 FOR SAFETY.
[2017-01-10] VITALS (7 sets, daily range): BP systolic 101–154; BP diastolic 44–83
--- NOTE | 2017-01-10 02:32 | NUR ---
PT RESTING QUIELTY WITH EASY RESPIRATIONS. CALL LIGHT WITHIN REACH.
[2017-01-10 05:06] LABS: BASOPHILS 1.9 % (0-2); EOSINOPHILS 0.2 % (0-7); HEMATOCRIT 22.1 % (42.0-54.0); IMMATURE GRANULOCYTES 4.1 % (0-5); LYMPHOCYTES 62.4 % (15-50); MCH 29.7 pg (26.0-34.0); MCHC 33.5 g/dL (31.0-37.0); MCV 88.8 fL (80.0-100.0); MONOCYTES 11.4 % (2-11); PLATELET COUNT 58 10x3/uL (130-400); RBC 2.49 10x6/uL (4.20-6.10); RDW 17.7 % (11.5-14.5); WBC 4.6 10x3/uL (4.8-10.8)
[2017-01-10 05:15] LABS: HEMOGLOBIN 7.4 g/dL (13.5-17.5)
[2017-01-10 05:28] LABS: ALBUMIN 2.4 g/dL (3.4-5.0); ALKALINE PHOSPHATASE 74 U/L (46-116); ALT (SGPT) 12 U/L (10-68); BILIRUBIN - TOTAL 1.33 mg/dL (0.2-1.3); CALC OSMOLALITY 277 mosm/kg (275-300); CALCIUM 7.8 mg/dL (8.5-10.1); CARBON DIOXIDE 26.7 mmol/L (21.0-32.0); CHLORIDE - SERUM 105 mmol/L (98-107); CREATININE - SERUM 0.6 mg/dL (0.6-1.3); GLUCOSE 96 mg/dL (74-106); POTASSIUM - SERUM 3.5 mmol/L (3.5-5.1); PROTEIN - SERUM 4.7 g/dL (6.4-8.2); SODIUM 139 mmol/L (136-145); UREA NITROGEN 13 mg/dL (7-18); eGFR NON AFRICAN AMERICAN > 90 mL/min (90-120)
--- NOTE | 2017-01-10 05:51 | NUR ---
IV IN RIGHT FA OCCLUDED. REMOVED WITH CATHETER TIP INTACT AND RE-SITED TO LEFT FA USING 20 GUAGE CATHETER IN ONE STICK.
--- NOTE | 2017-01-10 06:04 | NUR ---
CALLED DR CHADWICK RE: CRITICAL HEMOGLOBIN OF 7.4 NO NEW ORDERS.
--- NOTE | 2017-01-10 13:23 | NUR ---
Nutrition Follow Up: Chart reviewed. Pt is eating 43% meal avg on a regular diet. Pt is receiving Ensure with meals. Wt stable. +BM 01/10/17. Meds noted including NS @ 50 ml/hr. Labs reviewed. Pt po intake is improving but remains poor. Rec continue current diet, supplement regimen. Rec consider an appetite stimulant. RD will continue to monitor pt progress.
--- NOTE | 2017-01-10 16:42 | NUR ---
PATIENT LEFT VIA BED WITH RADIOLOGY TO GO FOR CT SCAN
--- NOTE | 2017-01-10 17:28 | NUR ---
PATIENT TRYING TO USE URINAL, AND URINATED ON THE BED. CHANGED PATIENT'S LINENS. REFILLED ICE-PACKS, REAPPLIED COLD RAG TO FOREHEAD AND ICE PACKS TO FEET, AXCILLARIES AND BEHIND NECK.
--- NOTE | 2017-01-10 19:00 | NUR ---
PATIENT SUPINE IN BED. HOB 40 DEGREES. AWAKE AND ALERT BUT SLIGHTLY CONFUSED. RR EVEN AND UNLABORED. 0 S/S OF DISTRESS. STATES PAIN IS A 8/10. IV TO LEFT FA PATENT WITH NO REDNESS OR SWELLING. SCD'S IN ROOM BUT OFF. B/A ON. SRX2. BED LOW. CALL LIGHT WITHIN REACH.
--- NOTE | 2017-01-10 20:00 | NUR ---
NIGHTTIME MED GIVEN. NORCO GIVEN FOR PAIN. WILL REASSESS.
--- NOTE | 2017-01-11 02:00 | NUR ---
PATIENT SLEEPING WITH NO DISTRESS NOTED. CALL LIGHT WITHIN REACH.
[2017-01-11 04:00] VITALS: BP 140/71
--- NOTE | 2017-01-11 04:10 | NUR ---
TYLENOL GIVEN FOR TEMP OF 101.5.
--- NOTE | 2017-01-11 07:50 | NUR ---
PT AOX4 RESP EVEN AND NONLABORED WITH 2L/NC AT THIS TIME PT DENIES NEEDS AT THIS TIME. SRX2 BED AT LOWEST SETTING CALL LIGHT WITHIN REACH WILL CONTINUE TO MONITOR
[2017-01-11 08:16] VITALS: BP 121/47
[2017-01-11 11:49] VITALS: BP 106/56
[2017-01-11 16:20] VITALS: BP 112/55
--- NOTE | 2017-01-11 19:00 | NUR ---
PATIENT SUPINE IN BED. HOB 30 DEGREES. AAOX4. RR EVEN AND UNLABORED. 0 S/S OF DISTRESS. O2 @ 2L VIA NC. IV TO LEFT FA PATENT WITH NO REDNESS OR SWELLING. SCD'S IN ROOM BUT OFF. B/A ON. SRX2. BED LOW. CALL LIGHT WITHIN REACH.
[2017-01-11 20:00] VITALS: BP 109/57
[2017-01-12] VITALS: BP 104/56
[2017-01-12 04:00] VITALS: BP 100/55
[2017-01-12 05:51] LABS: BASOPHILS 1.8 % (0-2); EOSINOPHILS 0.4 % (0-7); HEMATOCRIT 20.3 % (42.0-54.0); IMMATURE GRANULOCYTES 4.5 % (0-5); LYMPHOCYTES 71.4 % (15-50); MCH 29.5 pg (26.0-34.0); MCHC 32.5 g/dL (31.0-37.0); MCV 90.6 fL (80.0-100.0); MONOCYTES 8.9 % (2-11); RBC 2.24 10x6/uL (4.20-6.10); RDW 17.9 % (11.5-14.5); WBC 6.8 10x3/uL (4.8-10.8)
[2017-01-12 05:52] LABS: HEMOGLOBIN 6.6 g/dL (13.5-17.5); PLATELET COUNT 37 10x3/uL (130-400)
--- NOTE | 2017-01-12 06:08 | NUR ---
HGB 6.6. NOTIFIED DR. JOSEPH WHO IS METAL HANGER FOR DR. CHADWICK. HE STATED THAT HE WILL BE AT THE HOSPITAL SOON, NO ORDERS GIVEN.
[2017-01-12 06:17] LABS: CALC OSMOLALITY 277 mosm/kg (275-300); CARBON DIOXIDE 31.4 mmol/L (21.0-32.0); CHLORIDE - SERUM 103 mmol/L (98-107); CREATININE - SERUM 0.6 mg/dL (0.6-1.3); GLUCOSE 89 mg/dL (74-106); MAGNESIUM - SERUM 2.2 mg/dL (1.8-2.4); PHOSPHOROUS 3.3 mg/dL (2.5-4.9); POTASSIUM - SERUM 3.1 mmol/L (3.5-5.1); SODIUM 139 mmol/L (136-145); UREA NITROGEN 14 mg/dL (7-18); eGFR NON AFRICAN AMERICAN > 90 mL/min (90-120)
--- NOTE | 2017-01-12 07:40 | NUR ---
PT AOX4 RESP EVEN AND SHORT OF BREATH. PT DENIES NEEDS AT THIS TIME. IV TO LEFT FOREARM PATENT AND INTACT. SRX2 BED AT LOWEST SETTING CALL LIGHT WITHIN REACH WILL CONTINUE TO MONITOR
[2017-01-12 08:39] VITALS: BP 102/51
[2017-01-12 10:53] LABS: ALBUMIN 2.3 g/dL (3.4-5.0); BILIRUBIN - DIRECT 0.36 mg/dL (0.00-0.30); BILIRUBIN - INDIRECT 0.52 mg/dL (0.00-1.00); BILIRUBIN - TOTAL 0.88 mg/dL (0.2-1.3); POTASSIUM - SERUM 3.3 mmol/L (3.5-5.1); PROTEIN - SERUM 4.7 g/dL (6.4-8.2); VANCOMYCIN - TROUGH 6.3 ug/mL (10.0-20.0)
[2017-01-12 13:11] VITALS: BP 112/65
[2017-01-12 16:44] VITALS: BP 116/50
[2017-01-12 19:00] VITALS: BP 111/54
--- NOTE | 2017-01-12 20:34 | NUR ---
PATIENT LAYING IN BED, REQUESTED A NEW DEPENDS SINCE HE TORE HIS, AND PAIN MEDICATIONS FOR HIS FEET. NO OTHER NEEDS NOTED. BED IN LOWEST LOCKED POSITION, HOB ELEVATED, 3 BEDRAILS UP, CALL LIGHT WITHIN REACH.
[2017-01-13] VITALS: BP 121/65
--- NOTE | 2017-01-13 00:20 | NUR ---
MIRELLA SMITH AT BEDSIDE. NO VISIBLE SIGNS OF DISTRESS. BED IN LOWEST POSITION AND CALL LIGHT WITHIN REACH.
[2017-01-13 04:00] VITALS: BP 112/62
[2017-01-13 06:20] LABS: BASOPHILS 2.2 % (0-2); HEMATOCRIT 20.2 % (42.0-54.0); IMMATURE GRANULOCYTES 3.4 % (0-5); LYMPHOCYTES 71.5 % (15-50); MCH 29.5 pg (26.0-34.0); MCHC 32.2 g/dL (31.0-37.0); MCV 91.8 fL (80.0-100.0); MONOCYTES 8.8 % (2-11); NEUTROPHILS 13.1 % (40-80); RDW 18.4 % (11.5-14.5); WBC 6.7 10x3/uL (4.8-10.8)
[2017-01-13 06:27] LABS: HEMOGLOBIN 6.5 g/dL (13.5-17.5); PLATELET COUNT 37 10x3/uL (130-400)
[2017-01-13 06:55] LABS: ALBUMIN 2.2 g/dL (3.4-5.0); ALKALINE PHOSPHATASE 96 U/L (46-116); ALT (SGPT) 25 U/L (10-68); CALC OSMOLALITY 276 mosm/kg (275-300); CALCIUM 8.1 mg/dL (8.5-10.1); CARBON DIOXIDE 32.1 mmol/L (21.0-32.0); CHLORIDE - SERUM 104 mmol/L (98-107); CREATININE - SERUM 0.7 mg/dL (0.6-1.3); GLUCOSE 87 mg/dL (74-106); PHOSPHOROUS 3.2 mg/dL (2.5-4.9); PRO BNP 624 pg/mL (0-125); PROTEIN - SERUM 5.3 g/dL (6.4-8.2); SODIUM 140 mmol/L (136-145); UREA NITROGEN 11 mg/dL (7-18); eGFR NON AFRICAN AMERICAN > 90 mL/min (90-120)
[2017-01-13 07:00] LABS: POTASSIUM - SERUM 3.8 mmol/L (3.5-5.1)
--- NOTE | 2017-01-13 07:45 | NUR ---
PT AOX4 RESP EVEN AND NONLABORED IV TO LEFT FOREARM PATENT AND INTACT PT DENIES NEEDS AT THIS TIME SRX2 BED AT LOWEST SETTING CALL LIGHT WITHIN REACH
[2017-01-13 08:14] VITALS: BP 129/66
[2017-01-13 12:41] VITALS: BP 110/41
[2017-01-13 20:00] VITALS: BP 111/60
[2017-01-14] VITALS (9 sets, daily range): BP systolic 112–131; BP diastolic 55–90
--- NOTE | 2017-01-14 04:08 | NUR ---
EYES CLOSED RESPIRATIONS WITH EASE AND UNLABORED.
[2017-01-14 05:57] LABS: CALC OSMOLALITY 277 mosm/kg (275-300); CARBON DIOXIDE 30.6 mmol/L (21.0-32.0); CHLORIDE - SERUM 104 mmol/L (98-107); CREATININE - SERUM 0.6 mg/dL (0.6-1.3); GLUCOSE 96 mg/dL (74-106); MAGNESIUM - SERUM 2.1 mg/dL (1.8-2.4); PHOSPHOROUS 3.2 mg/dL (2.5-4.9); POTASSIUM - SERUM 3.8 mmol/L (3.5-5.1); SODIUM 140 mmol/L (136-145); UREA NITROGEN 11 mg/dL (7-18); eGFR NON AFRICAN AMERICAN > 90 mL/min (90-120)
[2017-01-14 06:31] LABS: BASOPHILS 2.3 % (0-2); EOSINOPHILS 0.8 % (0-7); HEMATOCRIT 23.1 % (42.0-54.0); IMMATURE GRANULOCYTES 3.6 % (0-5); LYMPHOCYTES 68.7 % (15-50); MCHC 31.6 g/dL (31.0-37.0); MONOCYTES 8.8 % (2-11); NEUTROPHILS 15.8 % (40-80); RBC 2.61 10x6/uL (4.20-6.10); RDW 18.5 % (11.5-14.5); WBC 6.6 10x3/uL (4.8-10.8)
[2017-01-14 06:36] LABS: MCV 88.5 fL (80.0-100.0)
[2017-01-14 06:37] LABS: HEMOGLOBIN 7.3 g/dL (13.5-17.5); PLATELET COUNT 45 10x3/uL (130-400)
--- NOTE | 2017-01-14 11:40 | NUR ---
CALLED TO PT'S ROOM BY MADHURI CORDERO THAT SHOWER CHAIR HAD BROKEN UNDERNEATH PATIENT. ASSSISTED PT UP AND TO THE BED. NOTIFIED MIRELLA NAVARRO OF FALL SO THAT SHE COULD ASSESS PT. SMALL CUT TO BOTTOM OF PT'S LEFT FOOT, BRUISE TO RIGHT POSTERIOR HIP, BRUISE TO LEFT THUMB, ABRASIONS TO BILATERAL BUTTOCK CHEEKS. PT DENIES PAIN AND WAS ASSISTED TO BED AND LAYED DOWN. CALL LIGHT IN REACH, WILL CONTINUE WITH PLAN OF CARE.
--- NOTE | 2017-01-14 11:50 | NUR ---
PT WAS IN THE SHOWER SITTING ON A SHOWER CHAIR, WHEN THE CHAIR BROKE DOWN THE MIDDLE, HE SLID TO THE FLOOR, SMALL ABRASIONS TO BOTH SIDES OF THE BOTTOM, FAINT BRUISE ABOVE RIGHT HIP, AND BRUISE TO HIS LEFT THUMB, REFUSES XRAYS. REFUSES FOR US TO CALL STATES HE WILL NOTIFIY HER WHEN SHE ARRIVES, SHE IS AT A [facility], DR JOSEPH MADE AWARE OF INCIDENT NO NEW ORDERS AT THIS TIME, VS-121/58 P-76 R-16 O2-92%, WILL MONIOTR VITALS Q15 FOR AN HOUR. NEURO CHECKS Q4, WILL CONTINUE TO MONITOR
--- NOTE | 2017-01-14 12:51 | NUR ---
PT STATES HIS BACK IS NOW HURTING/ACHING FROM FALL REQUEST TRAMADOL, GIVENPER MAR, STILL REFUSES XRAY
--- NOTE | 2017-01-15 01:49 | NUR ---
REC'D PATIENT SITTING UP IN BED. ALERT AND ORIENTED X4. NO DISTRESS NOTED. DENIED PAIN AT THIS TIME. DENIED FURTHER NEEDS AT THIS TIME. WILL ADMINISTER MEDS PRESCRIBED. WILL CONT TO MONITOR. BED LOW, LOCKED, CALL LIGHT IN REACH.
--- NOTE | 2017-01-15 03:06 | NUR ---
PATIENT RESTING WITH EYES CLOSED AND NO VISIBLE SIGNS OF DISTRESS. BED IN LOWEST POSITION AND CALL LIGHT WITHIN REACH.
[2017-01-15 04:00] VITALS: BP 137/72
--- NOTE | 2017-01-15 04:40 | NUR ---
PATIENT IS RESTING IN BED. NO DISTRESS NOTED. STATED PAIN WAS 8/10. ADMINISTERED PAIN MEDS ORDERED. DENIED FURTHER NEEDS AT THIS TIME. WILL CONT TO MONITOR. INSTRUCTED TO CALL IF NEEDED ANYTHING. VERBALIZED UNDERSTANDING. BED LOW, LOCKED, CALL LIGHT IN REACH.
[2017-01-15 06:42] LABS: BASOPHILS 1.9 % (0-2); EOSINOPHILS 0 % (0-7); HEMATOCRIT 24.1 % (42.0-54.0); HEMOGLOBIN 7.8 g/dL (13.5-17.5); LYMPHOCYTES 74.8 % (15-50); MCH 28.8 pg (26.0-34.0); MCHC 32.4 g/dL (31.0-37.0); MCV 88.9 fL (80.0-100.0); MONOCYTES 8.9 % (2-11); NEUTROPHILS 10.4 % (40-80); RBC 2.71 10x6/uL (4.20-6.10); RDW 18.1 % (11.5-14.5); WBC 6.4 10x3/uL (4.8-10.8)
[2017-01-15 06:45] LABS: PLATELET COUNT 41 10x3/uL (130-400)
[2017-01-15 07:12] LABS: CALC OSMOLALITY 289 mosm/kg (275-300); CHLORIDE - SERUM 107 mmol/L (98-107); CREATININE - SERUM 0.5 mg/dL (0.6-1.3); GLUCOSE 95 mg/dL (74-106); PHOSPHOROUS 3.1 mg/dL (2.5-4.9); POTASSIUM - SERUM 3.4 mmol/L (3.5-5.1); SODIUM 146 mmol/L (136-145); UREA NITROGEN 11 mg/dL (7-18); eGFR NON AFRICAN AMERICAN > 90 mL/min (90-120)
[2017-01-15 08:28] VITALS: BP 124/78
--- NOTE | 2017-01-15 08:33 | NUR ---
PT SEEN AND ASSESSED. NO COMPLAINTS OF DISCOMFORT THIS AM. FALL PRECAUTIONS IN PLACE. CALL LIGHT IN REACH
[2017-01-15 12:42] VITALS: BP 134/50
[2017-01-15 16:38] VITALS: BP 136/69
--- NOTE | 2017-01-15 18:08 | EC ---
PATIENT:ISADORA ROLDAN DATE OF SERVICE: 01/05/17 SEX: M MEDICAL RECORD: [id number] DATE OF : [birth year] [id number] AGE OF PATIENT: 66 ADMISSION DATE: 01/05/17 REFERRING PHYSICIAN: INTERPRETING PHYSICIAN: DELFIN AMBROCIO MD ECHOCARDIOGRAM REPORT ECHO CHARGES 4 ECHO COMPLETE CLINICAL DIAGNOSIS: SOB ECHOCARDIOGRAPHIC MEASUREMENTS (adult normal given) AC root (d.<3.7cm) 3.4 LV Septum d (<1.2 cm> 1.2 Valve Excursion 2.1 LV Septum (systole) 1.9 Left Atria (s.<4.0cm> 3.5 LVPW d(<1.2cm) 1.4 RV (d.<2.3cm) 3.2 LVPW (sytole) 2.7 LV diastole(<5.6CM) 7.7 MV E-F(>70mm/sec) LV systole 3.8 LVOT Diameter 2.5 MV exc.(>10mm) Est.ejection fraction (50-75%) Pericardial Effusion N DOPPLER: LVIT A 71.0 E 105 LA RVSP 52.0 LVOT 126 AOP1/2T Asc. Ao 193 RVOT 77.0 RA PA 131 AV Gradient Peak 15.0 AV Mean 6.7 AV Area 2.9 MV Gradient Peak 7.6 MV Mean 3.0 MV Area COMMENTS: [employer]: Jamie GUTIERREZOE Produce Clerk:1 Dr. Ambrocio TAPE# PACS DATE OF SERVICE: 01/14/2017 Echocardiogram FINDINGS: 1. Left ventricle chamber size is mildly dilated. Left ventricular systolic function is normal. Overall ejection fraction is estimated at 55%. 2. Left atrium is within normal limits at 3.5 cm. Right atrium and right ventricular chamber sizes are mildly dilated. 3. Valvular structures have normal structure and motion. ECHOCARDIOGRAM REPORT [id number] ISADORA ROLDAN 4. Doppler interrogation reveals moderate mitral regurgitation, mild tricuspid regurgitation, no other valvular insufficiency or stenosis; however, pulmonary systolic pressure is elevated estimated at 52 mmHg. 5. No evidence of pericardial effusion or left ventricular thrombus. TRANSINT:[id number] Voice Confirmation ID: [id number] DOCUMENT ID: [id number] DELFIN AMBROCIO MD at 1808 CC: [id number] DICTATION DATE: 01/14/17 1622 JEWELRY CONSULTANT: 01/15/17 1030 ADM IN [facility] [address] [id number]
[2017-01-16] VITALS: BP 119/49
--- NOTE | 2017-01-16 00:56 | NUR ---
REC'D PATIENT SITTING UP IN BED. ALERT AND ORIENTED X4. NO DISTRESS NOTED. REPORTED PAIN 03/04. WILL ADMINSTER PAIN MEDS PRESCRIBED. DENIED FURTHER NEEDS AT THIS TIME. INSTRUCTED TO CALL IF NEEDED ANYTHING. VERBALIZED UNDERSTANDING, 1929. IS NOW WANTING SOMETHING FOR PAIN CANNOT HAVE NORCO UNTIL 344. TRAMADOL HAS ON OCT. RENEWED ORDERED PER JEFFERY CALERO, UNDER DR. JOSEPH WHO IS DRESS FINISHER FOR DR. CHADWICK. WILL ADMINISTER PRESCRIBED. BED LOW, LOCKED, CALL LIGHT IN REACH.
[2017-01-16 04:00] VITALS: BP 134/66
[2017-01-16 05:17] LABS: BASOPHILS 1.2 % (0-2); EOSINOPHILS 0.1 % (0-7); HEMATOCRIT 25.2 % (42.0-54.0); HEMOGLOBIN 8.1 g/dL (13.5-17.5); IMMATURE GRANULOCYTES 3.6 % (0-5); LYMPHOCYTES 84.4 % (15-50); MCH 29.1 pg (26.0-34.0); MCHC 32.1 g/dL (31.0-37.0); MCV 90.6 fL (80.0-100.0); MONOCYTES 2.6 % (2-11); NEUTROPHILS 8.1 % (40-80); RBC 2.78 10x6/uL (4.20-6.10); RDW 17.9 % (11.5-14.5); WBC 7.7 10x3/uL (4.8-10.8)
[2017-01-16 05:32] LABS: CALC OSMOLALITY 285 mosm/kg (275-300); CALCIUM 8.3 mg/dL (8.5-10.1); CARBON DIOXIDE 31.3 mmol/L (21.0-32.0); CHLORIDE - SERUM 107 mmol/L (98-107); CREATININE - SERUM 0.5 mg/dL (0.6-1.3); GLUCOSE 89 mg/dL (74-106); MAGNESIUM - SERUM 2.1 mg/dL (1.8-2.4); PHOSPHOROUS 3.1 mg/dL (2.5-4.9); POTASSIUM - SERUM 3.7 mmol/L (3.5-5.1); SODIUM 144 mmol/L (136-145); UREA NITROGEN 12 mg/dL (7-18); eGFR NON AFRICAN AMERICAN > 90 mL/min (90-120)
[2017-01-16 05:49] LABS: PLATELET COUNT 34 10x3/uL (130-400)
[2017-01-16 08:26] VITALS: BP 125/67
--- NOTE | 2017-01-16 10:22 | NUR ---
CM REASSESSMENT NOTE: PATIENT IS DISCHARGING HOME TODAY- ([facility]) DRIVING HIM. PATIENT REFUSED HOME HEALTH AND STATED HE HAD NO OTHER NEEDS FOR DISCHARGE.
[2017-01-16] MEDS ORDERED: PREDNISONE20 MG PO (11:13)
[2017-01-16] MEDS ORDERED: FUROSEMIDE20 MG PO (11:13)
[2017-01-16] MEDS ORDERED: K-DUR20 MEQ PO (11:14)
--- NOTE | 2017-01-16 11:29 | NUR ---
PT SEEN THIS AM AND ASSESSED. COMPLAINTS OF NEUOROPATHY TO FEET BUT DID NOT WANT A PAIN PILL. AMBULATED TO BATHROOM PER SELF SLOWLY. DISCHARGE INSTRUCTIONS REVIEWED WITH PATIENT AND SPOUSE AND QUESTIONS ANSWERED. DISCHARGED WITH BELONGINGS
== END 2017-01-16 11:31 | disposition home or self-care (01) | DRG 177 ==
LOC: D.MS 18:50 → D.SDCHOLD 01-07 10:23 → D.MS 01-07 10:44
PROVIDERS: Internal Medicine Pulmonary Disease; ADMIT Legal Medicine
DX: J15.6 Pneumonia due to other Gram-negative bacteria (principal); G93.40 Encephalopathy, unspecified; A41.9 Sepsis, unspecified organism; C91.10 Chronic lymphocytic leukemia of B-cell type not having achieved remission; D80.1 Nonfamilial hypogammaglobulinemia; J90 Pleural effusion, not elsewhere classified; D59.1 Other autoimmune hemolytic anemias; D69.6 Thrombocytopenia, unspecified

== ENCOUNTER 2017-02-19 08:50 | Outpatient (CLI) | payer MEDICARE ==
[~2017-02-19] VITALS: Ht 205.7 cm; Wt 90.5 kg
[~2017-02-19 08:50] MED LIST changes: +AMOXICILLIN500 M1 PO; +FUROSEMIDE20 MG PO; +PREDNISONE20 MG PO
[2017-02-19] MEDS ORDERED: BACTRIM DS TABL1 TAB PO (09:36)
[2017-02-19 09:45] VITALS: BP 107/73; Ht 205.7 cm; Wt 90.5 kg
--- NOTE | 2017-02-19 16:32 | NUR ---
1615 IV DC WITH CATHER TIP INTACT
== END 2017-02-19 16:44 | disposition home or self-care (01) ==
LOC: D.OPS 08:50
DX: D64.9 Anemia, unspecified (principal)

== ENCOUNTER 2017-04-17 08:41 | Outpatient (CLI) | payer MEDICARE ==
--- NOTE | 2017-04-17 17:27 | NUR ---
1435 REPORT FROM ASHLEY TAPIA RN. PT. 1445 PT DOSING. BLOOD INFUSING AT 200/CC/HR. IV SITE PATENT. AWAKENS WITH CHECK DENIES NEEDS. 1500 BLOOD GOING WELL. STATES WILL TAKE ANOTHER [place], SERVED. 1530 BLOOD NEAR COMPLETE 1540 BLOOD COMPLETE, LINE BEING FLUSHED WITH NS 1640 IV DC'D WITH CATH INTACT. DENIES PROBLEMS. AWAITING WIFES' ARRIVAL.
== END 2017-04-17 17:00 | disposition home or self-care (01) ==
LOC: D.OPS 08:41
DX: D64.9 Anemia, unspecified (principal)

== ENCOUNTER 2017-04-29 13:11 | Inpatient (IN) | payer MEDICARE, BC ==
[2017-04-29] VITALS (9 sets, daily range): BP systolic 75–112; BP diastolic 42–71; BMI 24.2
[2017-04-29 14:28] LABS: HEMATOCRIT 25.2 % (42.0-54.0); HEMOGLOBIN 7.7 g/dL (13.5-17.5); MCH 25.8 pg (26.0-34.0); MCHC 30.6 g/dL (31.0-37.0); MCV 84.3 fL (80.0-100.0); RBC 2.99 10x6/uL (4.20-6.10); RDW 26.1 % (11.5-14.5); WBC 22.4 10x3/uL (4.8-10.8)
[2017-04-29 14:29] LABS: PLATELET COUNT 99 10x3/uL (130-400)
[2017-04-29 14:41] LABS: ALKALINE PHOSPHATASE 66 U/L (46-116); ALT (SGPT) 20 U/L (10-68); BILIRUBIN - TOTAL 1.73 mg/dL (0.2-1.3); CALC OSMOLALITY 272 mosm/kg (275-300); CALCIUM 7.9 mg/dL (8.5-10.1); CARBON DIOXIDE 25.1 mmol/L (21.0-32.0); CHLORIDE - SERUM 100 mmol/L (98-107); CREATININE - SERUM 0.9 mg/dL (0.6-1.3); GLUCOSE 72 mg/dL (74-106); POTASSIUM - SERUM 4.3 mmol/L (3.5-5.1); PROTEIN - SERUM 5.3 g/dL (6.4-8.2); SODIUM 135 mmol/L (136-145); UREA NITROGEN 23 mg/dL (7-18); eGFR NON AFRICAN AMERICAN 90 mL/min (90-120)
[2017-04-29 14:46] LABS: MAGNESIUM - SERUM 1.8 mg/dL (1.8-2.4)
[2017-04-29 14:50] LABS: LYMPHOCYTES 60 % (15-50); MONOCYTES 12 % (2-11); NEUTROPHILS 20 % (40-80); PLATELET ESTIMATE DECREASED
--- NOTE | 2017-04-29 15:38 | NUR ---
RECEIVED TO ROOM 2217 FROM ER VIA BED. TRANSFERRED AND REPOSITIONED FOR COMFORT. FAMILY IN ROOM. CALL LIGHT IN REACH. WILL CONTINUE WITH PLAN OF CARE.
--- NOTE | 2017-04-29 15:45 | NUR ---
PULLED IV OUT WHEN HE ACCIDENTALLY PULLED HIS IV OUT WITH BLOOD DRIPPING EVERYWHERE. RESTAURANT CREW TOOK VITALS AND HEARTRATE WAS 175. IMMEDIATELY WENT TO GET TELEMETRY AND PLACED IT ON PATIENT AND IT WAS UCAFIB @ 185 BPM WHICH WAS NEW FOR THE PATIENT. TEMP WAS ALSO 102.2. RAPID RESPONSE CALLED AND IV STARTED TO LEFT FOREARM WITH 22 GA X1 STICK.
--- NOTE | 2017-04-29 15:50 | NUR ---
PT AOX4 PT SOB WITH 28 BREATHS PER MINUTE AND HR 185 IN UNCONTROLLED AFIB AT THIS TIME HEART RATE VISABLE FROM CHEST STANDING AT THE FOOT OF BED RAPID RESPONSE CALLED AT THIS TIME 2L O2 VIA NC STARTED AT THIS TIME. IV TO LEFT FOREARM STARTED BY MIGEL RILEY LPN STARTED AT THIS TIME. PT MED REC DONE AT THIS TIME. PT TAKEN VIA BED TO ICU AT THIS TIME.
--- NOTE | 2017-04-29 16:21 | NUR ---
REC'D IN ICU, ALL MONITORING EQUIPMENT ATTACHED. HR 155 TO 165 ON CM. BP 87/67. CARDIOLOGY PAGED.
--- NOTE | 2017-04-29 16:27 | NUR ---
1630 PT RAPID RESPONDED ON MED SURG AND BROUGHT TO THE ICU .. UAF RATE OF 169 ON HEART MONITOR ON ARRIVAL BP 87/67 PT IS AWAKE AND RESPONSIVE HE IS SLIGHTLY DIPHORRETIC.. DENIES PAIN AT THIS TIME.. HE DOES STATE THAT HE HAS SOME RIB TENDERNESS ON THE RIGHT RIB STATING THAT HE FEEL AT HOME LAST NIGHT WHEN HE GOT UP.. DR WILKINS CONSULTED ON ARRIVAL TO UNIT AND DIGOXIN 0.5 IV GIVEN.. THE PIV ON THE LEFT HADND INFILTRATED AND RESITED IN RIGHT AC... NS RESSTARTED AT 100CCC/HR.. AND LEVOQUIN ANTIBIOTIC INFUSING...
--- NOTE | 2017-04-29 16:38 | NUR ---
REC'D ORDERS FOR DIGOXIN AND GAVE MED. BP 74/55. HOB DECREASED AND FOOT OF BED INCREASED. BP AFTER POSITIONING AND DIG 94/64, HR STILL 155/170.
[2017-04-29] MEDS ORDERED: LEVAQUIN500 MG PO (16:52)
[2017-04-29] MEDS ORDERED: HYDROCODON-ACE1 EAC7 PO (16:53)
[2017-04-29] MEDS ORDERED: COLACE100 MG PO (16:55)
--- NOTE | 2017-04-29 17:33 | NUR ---
PT CONTINUES TO BE HYPOTENSIVE AND TACHYCARDIA. HR 150 TO 170. PAGED AND REC'D ORDERS FROM DR WILKINS.
[2017-04-29 19:56] LABS: APPEARANCE CLEAR (CLEAR); BILIRUBIN NEGATIVE (NEGATIVE); COLOR YELLOW (YELLOW); GLUCOSE NEGATIVE (NEGATIVE); KETONE NEGATIVE (NEGATIVE); NITRITE NEGATIVE (NEGATIVE); PROTEIN NEGATIVE (NEGATIVE); SPECIFIC GRAVITY 1.015 (1.005-1.020); UROBILINOGEN NORMAL (NORMAL)
[2017-04-30] VITALS (25 sets, daily range): BP systolic 79–105; BP diastolic 50–66; BMI 24.2
--- NOTE | 2017-04-30 04:00 | NUR ---
THU PEDROZA AUTO DAMAGE APPRAISER FOR DR CHADWICK CALLED AND NOTIFIED OF PTS TEMP 103.4 AND HR. ORDER RECIEVED FOR TYLENOL 1 GM PO.
[2017-04-30 04:51] LABS: HEMATOCRIT 23.8 % (42.0-54.0); MCHC 30.7 g/dL (31.0-37.0); MCV 84.7 fL (80.0-100.0); RBC 2.81 10x6/uL (4.20-6.10); RDW 25.9 % (11.5-14.5); WBC 20.1 10x3/uL (4.8-10.8)
[2017-04-30 04:52] LABS: BASOPHILS 1.9 % (0-2); EOSINOPHILS 0 % (0-7); IMMATURE GRANULOCYTES 15.2 % (0-5); LYMPHOCYTES 17.4 % (15-50); MONOCYTES 28.6 % (2-11); NEUTROPHILS 36.9 % (40-80)
[2017-04-30 04:53] LABS: HEMOGLOBIN 7.3 g/dL (13.5-17.5); PLATELET COUNT 30 10x3/uL (130-400)
--- NOTE | 2017-04-30 05:00 | NUR ---
DR WILKINS CALLED AND NOTIFIED OF PTS INCREASED HR. ORDER RECIEVED FOR AMIODARONE 150MG IV NOW AND AMIODARONE 400MG PO NOW.
[2017-04-30 05:03] LABS: ALBUMIN 2.3 g/dL (3.4-5.0); ALKALINE PHOSPHATASE 55 U/L (46-116); CALCIUM 7.8 mg/dL (8.5-10.1); CARBON DIOXIDE 25.5 mmol/L (21.0-32.0); CHLORIDE - SERUM 103 mmol/L (98-107); CREATININE - SERUM 0.8 mg/dL (0.6-1.3); MAGNESIUM - SERUM 1.6 mg/dL (1.8-2.4); POTASSIUM - SERUM 4.1 mmol/L (3.5-5.1); PROTEIN - SERUM 4.9 g/dL (6.4-8.2); SODIUM 136 mmol/L (136-145); UREA NITROGEN 19 mg/dL (7-18); eGFR NON AFRICAN AMERICAN > 90 mL/min (90-120)
[2017-04-30 05:06] LABS: ALT (SGPT) 14 U/L (10-68); CALC OSMOLALITY 271 mosm/kg (275-300); GLUCOSE 69 mg/dL (74-106)
--- NOTE | 2017-04-30 05:15 | NUR ---
KASIA ANDINO ADMISSIONS COUNSELOR FOR DR CHADWICK NOTIFIED OF CRITICAL AM LABS. ORDER RECIEVED TO TRANSFUSE FOR HGB > 7 GIVE ONE UNIT PRBC AND PLT> 20 GIVE ONE UNIT PLATELETS.
--- NOTE | 2017-04-30 05:25 | NUR ---
PTS CALLED AND NOTIFIED OF PT CONDITION AND HUIS REQUEST FOR HER TO COME SEE HIM.
--- NOTE | 2017-04-30 09:05 | NUR ---
PHONED DR CHADWICK WITH UPDATE OF ALL LABS AND RECENT PROBLEMS. REC'D NEW ORDERS. AIDAN HERE, REC'D NEW ORDERS.
--- NOTE | 2017-04-30 11:00 | NUR ---
* Is the patient Alert and Oriented? Yes 0 * How many steps to enter\exit or inside your home? 1 0 * PCP Dr. Ryan Green 0 * Pharmacy [facility] in [place] 0 * Preadmission Environment Home with Family 0 * Partial ADLs (Assistance needed) Ambulation 0 * Equipment Cane Rolling Walker 0 * List name and contact numbers for known caregivers / representatives who currently or will assist patient after discharge: Spouse - Chante (H) [phone] or (C) [phone] 0 * Additional services required to return to the preadmission environment? No 0 * Can the patient safely return to the preadmission environment? Yes 0 * Has this patient been hospitalized within the prior 30 days at any hospital? No Patient Name: ISADORA ROLDAN Admission Status: ER Accout number: [id number] Admission Date: 04-29-2017 : 1950 Admission Diagnosis: Attending: JAS GREEN Current LOS: 1 Planned Disposition: Home Primary Insurance: MEDICARE A & B Discharge Planning Comments: CM met with patient to assess dc plans/needs. Patient states he lives at home with his , Chante, & his sister in law. He reports he uses a cane for ambulating but also uses a walker on occasion. He has had home health services in the past but unable to recall which agency. At dc, he plans to return home with his . No needs identified or verbalized at this time. CM will follow. Media Relations Specialist: La Dickinson
--- NOTE | 2017-04-30 11:10 | NUR ---
NSR 81 ON CM.
--- NOTE | 2017-04-30 19:24 | NUR ---
UPDATE CALLED TO DR. SANCHEZ, NEW ORDERS RECIEVED,
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
--- NOTE | 2017-04-30 20:30 | NUR ---
CALLED, SECURITY CODE VERIFIED UPDATE GIVEN QUESTIONS ANSWERED.
--- NOTE | 2017-04-30 21:00 | NUR ---
HS MEDS GIVEN PER DO AND DOCUMENTED ON OCT. NOTE PT REFUSED COLACE AND REFUSED THE FULL DOSE OF KLONOPIN. WAS TREATED FOR MAG OF 1.6 FROM THIS AM LAB PER ELECTROLYTE PROTOCOL. NO VISITORS AT THIS TIME
--- NOTE | 2017-04-30 23:00 | NUR ---
SHIFT REASSESSMENT COMPLETED SEE FLOWSHEET. PT REMAINS BRADYCARDIC THROUGHOUT SHIFT. HS MEDS GIVEN PER DIRECT ORDER OF DR. WILKINS. PT HAS BEEN GIVEN PAIN MEDICATION X 1 FOR CHRONIC PAIN IN JOINTS AND WAS ABLE TO SLEEP.
[2017-05-01] VITALS (24 sets, daily range): BP systolic 005–126; BP diastolic 44–84
--- NOTE | 2017-05-01 01:02 | NUR ---
MEDS GIVEN PER OCT. PT STATES PAIN IS "OK" NO INTERVENTION NEEDED AT THIS TIME.
--- NOTE | 2017-05-01 03:00 | NUR ---
SHIFT REASSESSMENT COMPLETED SEE FLOWSHEET. NO SIGNIFICANT CHANGE. PT HAS SLEPT WELL TONIGHT. PT AGAIN REFUSES BATH, ALLOWED PINEDA CARE, STATING HIS WILL HELP HIM TODAY WITH HIS BATH.
--- NOTE | 2017-05-01 03:17 | NUR ---
RADIOLOGY TECHS AT BEDSIDE FOR AM CXR
[2017-05-01 04:21] LABS: HEMATOCRIT 25.7 % (42.0-54.0); HEMOGLOBIN 8.2 g/dL (13.5-17.5); MCH 27.1 pg (26.0-34.0); MCHC 31.9 g/dL (31.0-37.0); MCV 84.8 fL (80.0-100.0); RBC 3.03 10x6/uL (4.20-6.10); RDW 23.1 % (11.5-14.5); WBC 16.6 10x3/uL (4.8-10.8)
[2017-05-01 04:39] LABS: PLATELET COUNT 33 10x3/uL (130-400)
[2017-05-01 05:12] LABS: ALBUMIN 2.2 g/dL (3.4-5.0); ALKALINE PHOSPHATASE 62 U/L (46-116); BILIRUBIN - TOTAL 1.35 mg/dL (0.2-1.3); CALCIUM 7.9 mg/dL (8.5-10.1); CARBON DIOXIDE 26.4 mmol/L (21.0-32.0); CREATININE - SERUM 0.9 mg/dL (0.6-1.3); PROTEIN - SERUM 5.3 g/dL (6.4-8.2); eGFR NON AFRICAN AMERICAN 90 mL/min (90-120)
[2017-05-01 05:13] LABS: ALT (SGPT) 18 U/L (10-68); GLUCOSE 128 mg/dL (74-106); MAGNESIUM - SERUM 2.1 mg/dL (1.8-2.4); UREA NITROGEN 25 mg/dL (7-18)
[2017-05-01 05:29] LABS: LYMPHOCYTES 54 % (15-50); MONOCYTES 6 % (2-11); NEUTROPHILS 25 % (40-80); PLATELET ESTIMATE DECREASED
--- NOTE | 2017-05-01 05:30 | NUR ---
LABS RESULTS REVIEWED. PT MADE AWARE OF RESULTS, PT ASSISTED WITH SET UP FOR ORAL CARE PERFORMED INDEPENDENTLY. MEDS GIVEN DOCUMENTED ON MAR
--- NOTE | 2017-05-01 05:45 | NUR ---
CALL RECEIVED FROM [employer] WORD VERIFIED QUESTIONS ANSWERED AND UPDATE GIVEN
[2017-05-01 06:18] LABS: CALC OSMOLALITY 273 mosm/kg (275-300); CHLORIDE - SERUM 100 mmol/L (98-107); POTASSIUM - SERUM 4.2 mmol/L (3.5-5.1); SODIUM 134 mmol/L (136-145)
--- NOTE | 2017-05-01 11:08 | NUR ---
REPORT CALLED TO Rosa M TRANSFERED TO 2105 PER BED PATIENT TOELRATED WELL
--- NOTE | 2017-05-01 11:42 | NUR ---
ELEVATED TEMP REPORTED TO DR. DEWEY. ORDERED TO GIVE TYLENOL AND DO ONE BLOOD CULTURE.
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
--- NOTE | 2017-05-01 14:37 | NUR ---
TEMP DOWN TO 99.7 MORE ALERT, CALLED ON PHONE. WANTS HIS TO HELP HIM TAKE A BATH. PAIN UNDER CONTROLL RIGHT NOW. STILL SOME CONFUSTION. KNOWS HE IS IN THE HOSPITAL. FORGETFUL
--- NOTE | 2017-05-01 15:26 | NUR ---
CALLED DR. CHADWICK HE DOES WHAT TO HOLD HIS CHEMO PO MED INBRUVICA FOR NOW. AT BEDSIDE. QUESTIONS ANSWERED
--- NOTE | 2017-05-01 18:04 | NUR ---
NO CONFUSION FROM SECOND DILAUDID. NOT FORGETFUL. ATE 75% OF DINNER TRAY. TALKATIVE. TEMP DOWN TO 97.9. MONITOR SB. IV'S PATENT WITHOUT REDNESS OR SWELLING GOO URINE OUTPUT. COMPLETE BED BATH GIVEN WITH LINEN CHANGE.
--- NOTE | 2017-05-01 19:20 | NUR ---
ASSESSMENT COMPLETE. BRADYCARDIA SHOWING ON MONITOR. RADIAL AND PEDAL PULSES WEAK BUT PALPATED. WEAKNESS NOTED TO EXTREMITIES X4. GENERALIZED BRUISING NOTED TO ABD AND EXTREMITIES. LOOSE TEETH NOTED. ON 4L NC. SCD IN PLACE. PINEDA CATH IN PLACE.
--- NOTE | 2017-05-01 21:50 | NUR ---
SPOKE WITH . UPDATE GIVEN. QUESTIONS ANSWERED.
--- NOTE | 2017-05-01 23:10 | NUR ---
REASSESSMENT COMPLETE. NO ACUTE CHANGES FROM PREVIOUS ASSESSMENT. NO DISTRESS NOTED. WILL CONTINUE TO MONITOR.
[2017-05-02] VITALS (16 sets, daily range): BP systolic 87–136; BP diastolic 50–84
--- NOTE | 2017-05-02 01:45 | NUR ---
PT RESTING EYES CLOSED. VSS. NO DISTRESS NOTED. CALL LIGHT IN REACH. WILL CONTINUE TO MONITOR.
--- NOTE | 2017-05-02 03:30 | NUR ---
REASSESSMENT COMPLETE. NO ACUTE CHANGES FROM PREVIOUS ASSESSMENT. VSS. NO DISTRESS NOTED. WILL CONTINUE TO MONITOR.
[2017-05-02 05:18] LABS: HEMATOCRIT 27.4 % (42.0-54.0); HEMOGLOBIN 8.8 g/dL (13.5-17.5); MCH 26.9 pg (26.0-34.0); MCHC 32.1 g/dL (31.0-37.0); MCV 83.8 fL (80.0-100.0); PLATELET COUNT 75 10x3/uL (130-400); RBC 3.27 10x6/uL (4.20-6.10); RDW 23.4 % (11.5-14.5); WBC 20.3 10x3/uL (4.8-10.8)
[2017-05-02 05:38] LABS: BASOPHILS 1 % (0-2); LYMPHOCYTES 43 % (15-50); MONOCYTES 9 % (2-11); NEUTROPHILS 31 % (40-80); PLATELET ESTIMATE DECREASED
[2017-05-02 06:44] LABS: ALBUMIN 2.3 g/dL (3.4-5.0); ALKALINE PHOSPHATASE 66 U/L (46-116); ALT (SGPT) 17 U/L (10-68); BILIRUBIN - TOTAL 1.18 mg/dL (0.2-1.3); CALC OSMOLALITY 276 mosm/kg (275-300); CALCIUM 8.2 mg/dL (8.5-10.1); CARBON DIOXIDE 24.5 mmol/L (21.0-32.0); CHLORIDE - SERUM 103 mmol/L (98-107); CREATININE - SERUM 0.7 mg/dL (0.6-1.3); PROTEIN - SERUM 5.5 g/dL (6.4-8.2); SODIUM 137 mmol/L (136-145); UREA NITROGEN 24 mg/dL (7-18); eGFR NON AFRICAN AMERICAN > 90 mL/min (90-120)
[2017-05-02 06:47] LABS: GLUCOSE 76 mg/dL (74-106)
--- NOTE | 2017-05-02 07:00 | NUR ---
Received report from JEFFERY Isaac. Patient currently asleep, arouses easily. Patient is oriented to person and place, confused regarding time and situation. Patient keeps talks about a pain button, informed patient her does not have a SKIN DRIER. Patient states he generally hurts all over, that he has bad joints. NS @ KVO to left forearm infusing. Sinclair cath draining yellow urine, will further assess need for sinclair cath. SCDS in place. Patient has thrush and sores in mouth and lips. Patient tolerating current diet. See shift assessment flowsheet for all findings.
--- NOTE | 2017-05-02 08:10 | NUR ---
Removed sinclair cath per nursing judgement and per patient c/o it hurting. Patient provided urinal.
--- NOTE | 2017-05-02 09:00 | NUR ---
Patients here to see patient. Update given, pain meds given per order. Patient remains confused but alert and following commands. Call light within reach.
--- NOTE | 2017-05-02 09:33 | NUR ---
NUTRITION F/U CHART REVIEWED, PT VISIT. PT REPORTS NO INTAKE BREAKFAST SECONDARY TO PAIN. WILL CONTINUE TO PROVIDE DIET, MONITOR PO INTAKE. RD FOLLOWING
--- NOTE | 2017-05-02 10:00 | NUR ---
Received order from that patient can transfer to floor. Patient sleeping at this time. VSS.
--- NOTE | 2017-05-02 12:29 | NUR ---
Patient d/cd PIV, informed we have to place another, he is requesting that we do not, informed him he needs one while hospitalized.
--- NOTE | 2017-05-02 13:10 | NUR ---
Patient sleeping on and off, denies lunch tray. VSS.
--- NOTE | 2017-05-02 15:00 | NUR ---
Patient to move to room 2216, called and left VM with brief update and room number he is being transferred to. Informed patient of transfer.
--- NOTE | 2017-05-02 15:30 | NUR ---
in for 1500 visitation, informed her of patients transfer, update given.
--- NOTE | 2017-05-02 16:22 | NUR ---
PATIENT RECEIVED FROM ICU VIA BED. PATIENT A/O X4. DENIES NEEDS. ORIENTED TO ROOM. SIDE RAILS UP X3. BED IN LOW POSITION. CALL LIGHT IN REACH. BED ALARM ON. FAMILY AT BEDSIDE.
--- NOTE | 2017-05-02 18:15 | NUR ---
ALERT IN HIGH CAR POSITION EATING DINNER. TOLERATING WELL. DENIES NEEDS. SIDE RAILS UP X2. BED IN LOW POSITION. CALL LIGHT IN REACH. BED ALARM ON.
--- NOTE | 2017-05-02 20:17 | NUR ---
REC'D. IN BED HOB UP 40 DEGREES. 02 4L NC.RESP. DEEP AND EVEN CHEST CLEAR WITH SOME DIMINISHED BREATH SOUNDS ALL QUAD.NO RESP DIFFICULTY OBSERVED. WILL CONTINUE TO MONITOR FOR ANY CHGES. IN RESP. STATUS AND FOLLOW CURRENT PLAN OF CARE
[2017-05-03] VITALS: BP 118/76
--- NOTE | 2017-05-03 01:12 | NUR ---
PT RESTING, EYES SHUT, EASILY AROUSED. 4 L O2 VIA NASAL CANNULA IN PLACE. R AC IV PATENT, FLUIDS ORDERED, DRSG C/D/I. BED IN LOWEST POSITION, SIDE RAILS UP X 2, CALL LIGHT WITHIN REACH.
[2017-05-03 04:00] VITALS: BP 114/62
[2017-05-03 07:23] LABS: HEMATOCRIT 24.2 % (42.0-54.0); HEMOGLOBIN 7.6 g/dL (13.5-17.5); MCHC 31.4 g/dL (31.0-37.0); RBC 2.81 10x6/uL (4.20-6.10); WBC 17.3 10x3/uL (4.8-10.8)
--- NOTE | 2017-05-03 07:25 | NUR ---
PATIENT RECEIVED IN MID CAR POSITION RESTING WITH EYES CLOSED. WAKES EASY. NO SIGNS OF DISTRESS NOTED. SIDE RAILS UP X2. BED IN LOW POSITION. CALL LIGHT IN REACH.
[2017-05-03 07:26] LABS: ALBUMIN 2.3 g/dL (3.4-5.0); ALKALINE PHOSPHATASE 70 U/L (46-116); ALT (SGPT) 20 U/L (10-68); BILIRUBIN - TOTAL 0.79 mg/dL (0.2-1.3); CALC OSMOLALITY 280 mosm/kg (275-300); CALCIUM 8.2 mg/dL (8.5-10.1); CARBON DIOXIDE 29.3 mmol/L (21.0-32.0); CHLORIDE - SERUM 104 mmol/L (98-107); CREATININE - SERUM 0.7 mg/dL (0.6-1.3); GLUCOSE 86 mg/dL (74-106); MAGNESIUM - SERUM 2.1 mg/dL (1.8-2.4); POTASSIUM - SERUM 3.7 mmol/L (3.5-5.1); PROTEIN - SERUM 5.5 g/dL (6.4-8.2); SODIUM 140 mmol/L (136-145); UREA NITROGEN 21 mg/dL (7-18); eGFR NON AFRICAN AMERICAN > 90 mL/min (90-120)
[2017-05-03 07:30] LABS: MCV 86.1 fL (80.0-100.0); PLATELET COUNT 59 10x3/uL (130-400)
[2017-05-03 07:56] LABS: BASOPHILS 1 % (0-2); EOSINOPHILS 1 % (0-7); LYMPHOCYTES 34 % (15-50); MONOCYTES 14 % (2-11); NEUTROPHILS 23 % (40-80)
[2017-05-03 07:57] LABS: ACANTHOCYTES OCC; ANISOCYTOSIS 1+; PLATELET ESTIMATE DECREASED; SCHISTOCYTES OCC
[2017-05-03 08:08] VITALS: BP 134/62
--- NOTE | 2017-05-03 08:12 | NUR ---
PATIENT ALERT IN BED RESTING QUIETLY. NO SIGNS OF DISTRESS NOTED. SCHEDULED MEDICATION ADMINISTERED WELL PRN DILAUDID FOR PAIN 04/04. NO FURTHER NEEDS VOICED. SIDE RAILS UP X2. BED IN LOW POSITION. CALL LIGHT IN REACH. BED ALARM ON.
--- NOTE | 2017-05-03 10:45 | NUR ---
PATIENT RESTING QUIETLY WITH EYES CLOSED. RESPIRATIONS EVEN AND UNLABORED. CALL LIGHT IN REACH. SIDE RAILS UP X2. BED IN LOW POSITION.
[2017-05-03 12:40] VITALS: BP 113/49
--- NOTE | 2017-05-03 14:20 | NUR ---
PATIENT ALERT IN BED VISITING WITH GUEST. NO SIGNS OF DISTRESS NOTED. SCHEDULED MEDICATION ADMINISTERED. DENIES NEEDS. SIDE RAILS UP X2. BED IN LOW POSITION. CALL LIGHT IN REACH.
[2017-05-03 16:00] VITALS: BP 115/67
--- NOTE | 2017-05-03 18:10 | NUR ---
C/O PAIN 04/04. DILAUDID PER PRN ORDER. NO FURTHER NEEDS VOICED. SIDE RAILS UP X2. BED IN LOW POSITION. CALL LIGHT IN REACH. BED ALARM ON.
--- NOTE | 2017-05-03 19:00 | NUR ---
REPORT RECEIVED AND CARE OF PT ASSUMED. PT LYING IN HIGH CAR'S POSITION WITH EYES CLOSED. IV IN RIGHT AC PATENT WITH NS INFUSING AT KVO. O2 IN USE VIA NC AT 4L. TELEMETRY IN PLACE AND PT READING 78 CONT A-FIB AT THIS ASSESSMENT. WILL MONITOR CLOSELY FOR NEEDS. CALL LIGHT WITHIN REACH.
[2017-05-03 20:00] VITALS: BP 101/67
--- NOTE | 2017-05-03 21:09 | NUR ---
HS MEDICATIONS GIVEN. WILL CONTINUE TO MONITOR FOR NEEDS.
--- NOTE | 2017-05-03 21:15 | NUR ---
DR CHADWICK HERE ROUNDING...DISCUSSED RE-HAB WITH PT.
[2017-05-04] VITALS: BP 121/70
--- NOTE | 2017-05-04 00:11 | NUR ---
GAVE DILAUDID 1 MG IVP PER PRN ORDER PER REQUEST FOR REPORTED PAIN AT LEVEL 8/10. WILL CONTINUE TO MONITOR FOR NEEDS. CALL LIGHT WITHIN REACH.
[2017-05-04 04:00] VITALS: BP 149/77
[2017-05-04 05:49] LABS: ALBUMIN 2.1 g/dL (3.4-5.0); ALKALINE PHOSPHATASE 66 U/L (46-116); ALT (SGPT) 21 U/L (10-68); CALC OSMOLALITY 278 mosm/kg (275-300); CALCIUM 7.9 mg/dL (8.5-10.1); CARBON DIOXIDE 29.5 mmol/L (21.0-32.0); CHLORIDE - SERUM 104 mmol/L (98-107); CREATININE - SERUM 0.7 mg/dL (0.6-1.3); GLUCOSE 75 mg/dL (74-106); MAGNESIUM - SERUM 1.8 mg/dL (1.8-2.4); POTASSIUM - SERUM 3.6 mmol/L (3.5-5.1); PROTEIN - SERUM 5.4 g/dL (6.4-8.2); SODIUM 139 mmol/L (136-145); UREA NITROGEN 17 mg/dL (7-18); eGFR NON AFRICAN AMERICAN > 90 mL/min (90-120)
[2017-05-04 06:18] LABS: HEMATOCRIT 25.3 % (42.0-54.0); HEMOGLOBIN 7.8 g/dL (13.5-17.5); MCH 26.5 pg (26.0-34.0); MCHC 30.8 g/dL (31.0-37.0); MCV 86.1 fL (80.0-100.0); RBC 2.94 10x6/uL (4.20-6.10); WBC 18.7 10x3/uL (4.8-10.8)
[2017-05-04 06:33] LABS: PLATELET COUNT 27 10x3/uL (130-400)
[2017-05-04 07:08] LABS: BASOPHILS 2 % (0-2); LYMPHOCYTES 31 % (15-50); MONOCYTES 10 % (2-11); NEUTROPHILS 42 % (40-80)
[2017-05-04 07:09] LABS: ANISOCYTOSIS 1+; PLATELET ESTIMATE DECREASED; PLATELET MORPHOLOGY GIANT PLTS PRESENT; POIKILOCYTOSIS 1+; SCHISTOCYTES 1+; TARGET CELLS 1+; VACUOLES 2+
[2017-05-04 07:10] LABS: HELMET CELLS 1+
--- NOTE | 2017-05-04 07:22 | NUR ---
MAG 1.8 PER AM LABS. GAVE 400 MG PO PER ELECTROLYTE PROTOCOL AND WILL RE-PEAT IN 4 HOURS...PASSED ALONG IN REPORT.
--- NOTE | 2017-05-04 08:10 | NUR ---
ASSESSMENT COMPLETE. IV TO R AC PATENT. SALES REPRESENTATIVE PRINTING PAPER SHOWING SR 81 PER TECH. O2 4L NC IN USE. SCATTERED SCABBED AREAS NOTED TO ARMS AND LEGS. COMPLAINING OF PAIN TO NECK. INCONT OF BLADDER AT TIMES.
[2017-05-04 09:00] VITALS: BP 123/64
--- NOTE | 2017-05-04 09:24 | NUR ---
DILAUDID GIVEN SLOW IVP FOR COMPLAINT OF GENERALIZED PAIN.
[2017-05-04 13:13] VITALS: BP 101/51
--- NOTE | 2017-05-04 14:55 | NUR ---
RESTING QUIETLY IN BED. NO CHANGES NOTED AT THIS TIME.
--- NOTE | 2017-05-04 16:00 | NUR ---
FAMILY AT BEDSIDE.
--- NOTE | 2017-05-04 17:30 | NUR ---
REFUSING TO EAT DINNER. DOESN'T WANT NYSTATIN AT THIS TIME. CONTINUES COMPLAINING OF NECK PAIN. ENCOURAGED TO REST HEAD ON PILLOW INSTEAD OF TRYING TO HOLD HEAD UP WHILE RESTING.
[2017-05-04 17:58] VITALS: BP 106/59
[2017-05-04 19:00] VITALS: BP 111/61
--- NOTE | 2017-05-04 19:44 | NUR ---
PATIENT A&Ox4, SLIGHTLY DROWSY, BED RAILS UP x3, HOB ELEVATED, WHEELS LOCKED, CALL LIGHT WITHIN REACH, SCD OFF PER REQUEST. COMPLAING OF 7-8/10 PAIN TO NECK, JOINTS, AND FEET. SCABS NOTED ON ARMS. AND REDNESS AROUND PIV IN RAC.
[2017-05-05] VITALS: BP 111/61; BP 111/63
--- NOTE | 2017-05-05 02:30 | NUR ---
PATIENT RESTING WITH EYES CLOSED AND NO VISIBLE SIGNS OF DISTRESS. BED IN LOWEST POSITION AND CALL LIGHT WITHIN REACH.
[2017-05-05 03:30] VITALS: BP 144/60
[2017-05-05 05:20] LABS: HEMATOCRIT 23.8 % (42.0-54.0); MCH 27.2 pg (26.0-34.0); MCHC 31.5 g/dL (31.0-37.0); MCV 86.2 fL (80.0-100.0); RBC 2.76 10x6/uL (4.20-6.10); WBC 15.9 10x3/uL (4.8-10.8)
[2017-05-05 05:22] LABS: PLATELET COUNT 17 10x3/uL (130-400)
[2017-05-05 05:23] LABS: HEMOGLOBIN 7.5 g/dL (13.5-17.5)
[2017-05-05 05:28] LABS: BASOPHILS 2 % (0-2); EOSINOPHILS 1 % (0-7); LYMPHOCYTES 25 % (15-50); MONOCYTES 10 % (2-11); NEUTROPHILS 44 % (40-80); PLATELET ESTIMATE DECREASED
[2017-05-05 05:40] LABS: CALC OSMOLALITY 278 mosm/kg (275-300); CARBON DIOXIDE 29.6 mmol/L (21.0-32.0); CHLORIDE - SERUM 105 mmol/L (98-107); CREATININE - SERUM 0.6 mg/dL (0.6-1.3); GLUCOSE 80 mg/dL (74-106); POTASSIUM - SERUM 3.4 mmol/L (3.5-5.1); SODIUM 140 mmol/L (136-145); UREA NITROGEN 14 mg/dL (7-18); eGFR NON AFRICAN AMERICAN > 90 mL/min (90-120)
--- NOTE | 2017-05-05 05:48 | NUR ---
PAGE PUT INTO DR CHADWICK FOR CL PLATELETS.
--- NOTE | 2017-05-05 07:41 | NUR ---
RESTING QUIETLY WITH EYES CLOSED. RESP EVEN,NONLABORED.
--- NOTE | 2017-05-05 07:50 | NUR ---
ASSESSMENT COMPLETE. IV TO R AC SL. O2 4L NC IN USE. MEDIA DIRECTOR SHOWING SR 69 PER TECH. SCABBED AREAS SCATTTERED OVER BILAT ARMS AND LEGS. COMPLAINING OF NECK PAIN.
[2017-05-05 09:36] VITALS: BP 135/68
--- NOTE | 2017-05-05 10:48 | NUR ---
FFP INFUSION STARTED. VSS. AT BEDSIDE.
--- NOTE | 2017-05-05 11:15 | NUR ---
FFP INFUSION COMPLETED. VSS.
--- NOTE | 2017-05-05 12:00 | NUR ---
TEMP FLUCTUATES WHEN CHECKED IN DIFFERENT AREAS. TEMPORAL TEMP WAS 102.7. AUXILLARY WAS 101.8 AND ORAL WAS 99.9. WORRIED ABOUT FEVER GETTING ANY HIGHER. TYLENOL GIVEN PO.
--- NOTE | 2017-05-05 14:15 | NUR ---
COMPLAINING OF GENERALIZED PAIN AND MOANING. DILAUDID GIVEN SLOW IVP.
[2017-05-05 15:51] VITALS: BP 100/42
--- NOTE | 2017-05-05 18:24 | NUR ---
COMPLAINING OF GENERALIZED PAIN. DILAUDID GIVEN SLOW IVP. AT BEDSIDE.
--- NOTE | 2017-05-05 19:00 | NUR ---
REPORT RECEIVED AND CARE OF PT ASSUMED. PT LYING IN SEMI CAR'S POSITION WITH EYES CLOSED AND EASY RESPIRATIONS. IV IN RIGHT AC PATENT WITH NS INFUSING AT KVO. O2 IN US VIA NC AT 4L. WILL MONITOR LEONARDOLEY FOR NEEDS.
[2017-05-05 20:00] VITALS: BP 107/51
--- NOTE | 2017-05-05 20:40 | NUR ---
1 UNIT OF PLATELETS GIVEN PER ORDER. VITALS STABLE AND PT IS AFEBRILE.
--- NOTE | 2017-05-05 21:01 | NUR ---
HS MEDICATIONS GIVEN TO INCLUDE NORCO 5 PER REQUEST FOR PAIN. WILL CONITNUE TO MONITOR FOR NEEDS.
[2017-05-06] VITALS (22 sets, daily range): BP systolic 104–155; BP diastolic 45–78
--- NOTE | 2017-05-06 01:52 | NUR ---
STARTED ANOTHER IV IN LEFT FA, USING 20 GUAGE CATHETER IN ONE STICK. IV IN RIGHT FA LEAKING...RE-TAPED AND IS WORKING FOR NOW.
--- NOTE | 2017-05-06 03:00 | NUR ---
CHANGED ALL IV TUBING PER CHANGE SCHEDULE.
[2017-05-06 05:41] LABS: CALC OSMOLALITY 280 mosm/kg (275-300); CALCIUM 7.8 mg/dL (8.5-10.1); CARBON DIOXIDE 31.2 mmol/L (21.0-32.0); CHLORIDE - SERUM 105 mmol/L (98-107); CREATININE - SERUM 0.7 mg/dL (0.6-1.3); GLUCOSE 80 mg/dL (74-106); POTASSIUM - SERUM 3.8 mmol/L (3.5-5.1); SODIUM 141 mmol/L (136-145); UREA NITROGEN 14 mg/dL (7-18); eGFR NON AFRICAN AMERICAN > 90 mL/min (90-120)
[2017-05-06 06:01] LABS: BASOPHILS 3.4 % (0-2); EOSINOPHILS 0.1 % (0-7); HEMATOCRIT 21.7 % (42.0-54.0); IMMATURE GRANULOCYTES 18.5 % (0-5); LYMPHOCYTES 8.8 % (15-50); MCH 26.5 pg (26.0-34.0); MCHC 30.4 g/dL (31.0-37.0); MCV 87.1 fL (80.0-100.0); MONOCYTES 30.1 % (2-11); NEUTROPHILS 39.1 % (40-80); RBC 2.49 10x6/uL (4.20-6.10); RDW 24.4 % (11.5-14.5); WBC 17.1 10x3/uL (4.8-10.8)
[2017-05-06 06:16] LABS: HEMOGLOBIN 6.6 g/dL (13.5-17.5); PLATELET COUNT 43 10x3/uL (130-400)
--- NOTE | 2017-05-06 07:15 | NUR ---
PATIENT RECEIVED IN MID CAR POSITION RESTING WITH EYES CLOSED. RESPIRATIONS EVEN AND UNLABORED. SIDE RAILS UP X2. BED IN LOW POSITION. CALL LIGHT IN REACH. BED ALARM ON.
--- NOTE | 2017-05-06 08:50 | NUR ---
PATIENT IN BED RETING QUIETLY. NO SIGNS OF DISTRESS NOTED. SCHEDULED MEDICATION ADMINISTERED WELL PRN NORCO. PARTIAL LINEN CHANGE COMPLETE. SIDE RAILS UP X2. BED IN LOW POSITION. CALL LIGHT IN REACH.
--- NOTE | 2017-05-06 13:24 | NUR ---
NUTRITION F/U CHART REVIEWED, PT SLEEPING. NO PO INTAKE TODAY. WILL CONTINUE TO PROVIDE DIET, MONITOR PO INTAKE. RD FOLLOWING
--- NOTE | 2017-05-06 14:20 | NUR ---
FIRST UNIT PRBC INITIATED PER ORDER. TRANSFUSING TO LEFT FOREARM IV WITHOUT DIFFICULTY. IV PATENT. NO REDNESS OR INFLAMMATION NOTED. VITAL SIGNS STABLE. SIDE RAILS UP X2. BED IN LOW POSITION. CALL LIGHT IN REACH. BED ALARM ON.
--- NOTE | 2017-05-06 17:15 | NUR ---
FIRST UNIT PRBC COMPLETE. WELL TOLERATED. VITAL SIGNS STABLE. SIDE RAILS UP X2. BED IN LOW POSITION. CALL LIGHT IN REACH. BED ALARM ON.
--- NOTE | 2017-05-06 17:45 | NUR ---
PATIENT OFF FLOOR TO CT VIA BED
--- NOTE | 2017-05-06 17:58 | NUR ---
BACK TO ROOM FROM CT
--- NOTE | 2017-05-06 20:00 | NUR ---
ASSESSMENT PER FLOWSHEET. IV PATENT LEFT ARM NS AT O. SITE CLEAR. TELM. SHOWS SR WITH HR 67.SR UP X2 CALL LIGHT WITHIN REACH BED ALARM ON. CONFUSED AT TIMES. HOB UP 30 DEGREES.
--- NOTE | 2017-05-06 20:20 | NUR ---
SECOND UNIT OF PRBC'S STARTED PER HOSPITAL PROTOCAL. MONITORING VS.
--- NOTE | 2017-05-06 21:15 | NUR ---
C/O PAIN IN RT HIP AREA. UNABLE TO GIVEN IVP PAIN MED BECAUSE OF BLOOD TRANSFUSION. NORCO 5 TAB ONE PO GIVEN FOR PAIN CONTROL.
--- NOTE | 2017-05-06 22:45 | NUR ---
RESTING AT THIS TIME. BLOOD TRANSFUSION COMPLETED NO REACTION SEEN. NS INFUSING KVO.
--- NOTE | 2017-05-07 | NUR ---
EYES CLOSED RESTING QUIETLY DENEIS NEEDS.
--- NOTE | 2017-05-07 01:25 | NUR ---
C/O PAIN IN HIS RIGHT HIP. DILAUDID 2MG IVP GIVEN FOR PAIN CONTROL.
--- NOTE | 2017-05-07 03:43 | NUR ---
EYES CLOSED RESPIRATIONS WITH EASE AND UNLABORED. O2 ON 4L/M PER NC.
[2017-05-07 04:00] VITALS: BP 100/67
[2017-05-07 06:31] LABS: CALC OSMOLALITY 282 mosm/kg (275-300); CALCIUM 8.5 mg/dL (8.5-10.1); CARBON DIOXIDE 30.9 mmol/L (21.0-32.0); CHLORIDE - SERUM 104 mmol/L (98-107); CREATININE - SERUM 0.6 mg/dL (0.6-1.3); GLUCOSE 74 mg/dL (74-106); POTASSIUM - SERUM 3.9 mmol/L (3.5-5.1); SODIUM 142 mmol/L (136-145); UREA NITROGEN 14 mg/dL (7-18); eGFR NON AFRICAN AMERICAN > 90 mL/min (90-120)
[2017-05-07 06:35] LABS: HEMATOCRIT 27.8 % (42.0-54.0); HEMOGLOBIN 8.7 g/dL (13.5-17.5); MCH 27.4 pg (26.0-34.0); MCHC 31.3 g/dL (31.0-37.0); MCV 87.7 fL (80.0-100.0); PLATELET COUNT 42 10x3/uL (130-400); RBC 3.17 10x6/uL (4.20-6.10); WBC 21.8 10x3/uL (4.8-10.8)
--- NOTE | 2017-05-07 07:15 | NUR ---
PATIENT RECEIVED IN MID CAR POSITION RESTING QUIETLY WITH EYES CLOSED. RESPIRATIONS EVEN AND UNLABORED. SIDE RAILS UP X2. BED IN LOW POSITION. CALL LIGHT IN REACH. BED ALARM ON.
[2017-05-07 07:28] LABS: ANISOCYTOSIS OCC; LYMPHOCYTES 34 % (15-50); MONOCYTES 18 % (2-11); NEUTROPHILS 6 % (40-80); PLATELET ESTIMATE DECREASED; ROULEAUX OCC; SCHISTOCYTES OCC
--- NOTE | 2017-05-07 08:09 | NUR ---
PATIENT RESTING QUIETLY WITH EYES CLOSED. RESPIRATIONS EVEN AND UNLABORED. WAKES EASY. SCHEDULED MEDICATION ADMINISTERED. SIDE RAILS UP X2. BED IN LOW POSITION. CALL LIGHT IN REACH. BED ALARM ON.
[2017-05-07 09:33] VITALS: BP 135/59
--- NOTE | 2017-05-07 10:02 | NUR ---
PATIENT RESTING WITH EYES CLOSED. RESPIRATIONS EVEN AND UNLABORED. WAKES EASY. SCHEDULED MEDICATION ADMINISTERED. BED IN LOW POSTION. CALL LIGHT IN REACH. BED ALARM ON.
--- NOTE | 2017-05-07 12:00 | NUR ---
C/O PAIN 06/04. DILAUDID PER PRN ORDER. NO FURTHER NEEDS VOICED. SIDE RAILS UP X2. BED IN LOW POSITION. CALL LIGHT IN REACH. BED ALARM ON.
[2017-05-07 12:51] VITALS: BP 119/58
[2017-05-07 16:49] VITALS: BP 122/52
--- NOTE | 2017-05-07 17:22 | NUR ---
PATIENT ALERT IN BED. NO SIGNS OF DISTRESS NOTED. PRESENT. PRN DILAUDID ADMINISTERED. NO FURTHER NEEDS VOICED. SIDE RAILS UP X2. BED IN LOW POSITION. CALL LIGHT IN REACH. BED ALARM ON.
[2017-05-07 20:00] VITALS: BP 129/59
--- NOTE | 2017-05-07 20:00 | NUR ---
ASSESSMENT PER FLOWSHEET. IV PATENT LEFT FOREARM OF NS AT KVO. SITE CLEAR. SORES NOTED TO LEFT SIDE OF MOUTH. DR. CHADWICK HERE ORDERS REC'D. TELM. SHOWS SR WITH HR 89. O2 ON 4 L/M PER NC.
--- NOTE | 2017-05-07 20:30 | NUR ---
PINEDA CATHETER 16 FR INSERTED AND 400 CC'S JUAN COLORED UA RETURNED.
--- NOTE | 2017-05-07 23:16 | NUR ---
TEMP ELEVATED TO 103.2. TYLENOL 1000MG PO GIVEN FOR TEMP MEASURES.
[2017-05-08] VITALS: BP 133/62
--- NOTE | 2017-05-08 01:00 | NUR ---
TTEMP DOWN TO 99.9.
[2017-05-08 04:00] VITALS: BP 127/56
--- NOTE | 2017-05-08 05:00 | NUR ---
TEMP ELEVATED TO 103.3 (AX) TYLENOL 1000MG PO GIVEN FOR TEMP MEASURES.
[2017-05-08 06:05] LABS: HEMATOCRIT 25.6 % (42.0-54.0); HEMOGLOBIN 7.9 g/dL (13.5-17.5); MCH 27.5 pg (26.0-34.0); MCHC 30.9 g/dL (31.0-37.0); MCV 89.2 fL (80.0-100.0); RBC 2.87 10x6/uL (4.20-6.10); WBC 22.9 10x3/uL (4.8-10.8)
[2017-05-08 06:16] LABS: PLATELET COUNT 29 10x3/uL (130-400)
[2017-05-08 06:33] LABS: CALC OSMOLALITY 279 mosm/kg (275-300); CALCIUM 7.9 mg/dL (8.5-10.1); CARBON DIOXIDE 29.9 mmol/L (21.0-32.0); CHLORIDE - SERUM 103 mmol/L (98-107); GLUCOSE 100 mg/dL (74-106); MAGNESIUM - SERUM 1.7 mg/dL (1.8-2.4); POTASSIUM - SERUM 3.4 mmol/L (3.5-5.1); PRO BNP 2149 pg/mL (0-125); SODIUM 140 mmol/L (136-145); UREA NITROGEN 16 mg/dL (7-18)
[2017-05-08 06:40] LABS: CREATININE - SERUM 0.8 mg/dL (0.6-1.3); eGFR NON AFRICAN AMERICAN > 90 mL/min (90-120)
[2017-05-08 07:27] LABS: LYMPHOCYTES 36 % (15-50); MONOCYTES 14 % (2-11); NEUTROPHILS 22 % (40-80); PLATELET ESTIMATE DECREASED
[2017-05-08 07:28] LABS: ACANTHOCYTES OCC; ANISOCYTOSIS 1+; SCHISTOCYTES OCC; SMUDGE CELLS OCC
--- NOTE | 2017-05-08 07:30 | NUR ---
RECIEVED PT DURING WALKING ROUNDS, PT IN BED WITH COMPLAINTS OF PAIN OF AN 8 ON A SCALE OF 1-10. WILL ADMINISTER MEDICATION PER ORDER. ASSESSMENT DONE PER FLOWSHEET. BED IN LOW POSITION AND CALL LIGHT WITHIN REACH. WILL CONTINUE TO MONITOR.
[2017-05-08 08:38] VITALS: BP 112/54
[2017-05-08 12:47] VITALS: BP 108/51
[2017-05-08 16:24] VITALS: BP 92/48
[2017-05-08 19:00] VITALS: BP 110/52
[2017-05-08 19:28] LABS: HEMATOCRIT 25.1 % (42.0-54.0); MCH 28.1 pg (26.0-34.0); MCHC 31.9 g/dL (31.0-37.0); MCV 88.1 fL (80.0-100.0); RBC 2.85 10x6/uL (4.20-6.10); WBC 19.6 10x3/uL (4.8-10.8)
[2017-05-08 19:42] LABS: INR 1.31 (0.85-1.17); PROTIME 16.1 SECONDS (11.6-15.0)
--- NOTE | 2017-05-08 20:00 | NUR ---
ASSESSMENT PER FLOWSHEET. IV PATENT LEFT FOREARM SALINE LOCKED. HOB UP 45 DEGREES. BED ALARM BED ON. SR UP X2 CALL LIGHT WITHIN REACH. SORES ON MOUTH HEALING. MORE ALERT AND FEELING BETTER TODAY. PINEDA TO BS DRAINAGE WITH JUAN COLORED URINE.
[2017-05-08 20:34] LABS: PLATELET COUNT 21 10x3/uL (130-400)
[2017-05-08 20:56] LABS: PLATELET ESTIMATE DECREASED
--- NOTE | 2017-05-08 21:00 | NUR ---
MEDS GIVEN PER OCT. C/O PAIN BACK NECK SIDE OF BODY. DILAUDID 2MG IVP GIVEN FOR PAIN CONTROL. TALKING ON PHONE WITH INFORMED PT'S ABOUT THE BRONCH BEING DONE AT [address] GARCIA. DR[address] CHADWICK MAKING ROUNDS THIS EVENING.
[2017-05-08 21:06] LABS: EOSINOPHILS 6 % (0-7); LYMPHOCYTES 37 % (15-50); MONOCYTES 12 % (2-11); NEUTROPHILS 33 % (40-80)
--- NOTE | 2017-05-08 22:00 | NUR ---
EYES CLOSED RESPIRATIONS WITH EAS AND UNLABORED. O2 ON 4L/M PER NC. NO DISTRESS.
[2017-05-09] VITALS (13 sets, daily range): BP systolic 106–134; BP diastolic 48–68
--- NOTE | 2017-05-09 01:55 | NUR ---
EYES CLOSED RESPIRATIONS WITH EASE AND UNLABORED. DENIES NEEDS.
[2017-05-09 05:49] LABS: HEMATOCRIT 24.8 % (42.0-54.0); HEMOGLOBIN 7.9 g/dL (13.5-17.5); MCH 28.2 pg (26.0-34.0); MCHC 31.9 g/dL (31.0-37.0); MCV 88.6 fL (80.0-100.0); RDW 22.4 % (11.5-14.5); WBC 17.1 10x3/uL (4.8-10.8)
[2017-05-09 06:02] LABS: PLATELET COUNT 33 10x3/uL (130-400)
[2017-05-09 06:06] LABS: CALC OSMOLALITY 283 mosm/kg (275-300); CALCIUM 8.1 mg/dL (8.5-10.1); CARBON DIOXIDE 32.4 mmol/L (21.0-32.0); CHLORIDE - SERUM 104 mmol/L (98-107); CREATININE - SERUM 0.7 mg/dL (0.6-1.3); GLUCOSE 98 mg/dL (74-106); POTASSIUM - SERUM 3.6 mmol/L (3.5-5.1); SODIUM 141 mmol/L (136-145); UREA NITROGEN 20 mg/dL (7-18); eGFR NON AFRICAN AMERICAN > 90 mL/min (90-120)
[2017-05-09 06:46] LABS: LYMPHOCYTES 28 % (15-50); MONOCYTES 14 % (2-11); NEUTROPHILS 31 % (40-80); PLATELET ESTIMATE DECREASED
[2017-05-09 06:50] LABS: ANISOCYTOSIS OCC; HYPOCHROMASIA 1+; SCHISTOCYTES 1+; SMUDGE CELLS OCC
--- NOTE | 2017-05-09 07:27 | NUR ---
Wound care consult received (reads "skin tear on buttock"). Closed, healed scratch or laceration noted to outer rt buttock with no drainage, no edema, no pain to area. Left forearm/wrist peripheral IV site red and firm, will be assessed by assigned floor nurse per IV maintenance assessment. Rt arm swollen, lying on pillow for elevation, returned to previous position after assessment of buttocks. Pt is at risk for skin breakdown due to imobility, decreased sensation. Coccyx area pink and blanchable, skin intact. No new orders at this time. Wound consult complete.
--- NOTE | 2017-05-09 07:30 | NUR ---
RECIEVED PT DURING WALKING ROUNDS. PT RESTING IN BED WITH COMPLAINTS OF PAIN OF A 8 ON A SCALE OF 1-10. NO MEDICATION TO BE GIVEN AT THIS TIME. ASSESSMENT DONE PER FLOWSHEET. BED IN LOW POSITION AND CALL LIGHT WITHIN REACH. WILL CONTINUE TO MONITOR.
--- NOTE | 2017-05-09 09:50 | NUR ---
PAIN MEDICATION GIVEN AT THIS TIME FOR PAIN OF A 10 IN LOWER BACK AND HIPS. IV FLUSHES BUT IS RED AT SITE. PHONE CALL PLACED TO JEFFERY MUNROEACUTE CARE NURSE PRACTITIONER ACCESS NURSE TO RE-SITE IV. WILL CONTINUE TO MONITOR.
--- NOTE | 2017-05-09 11:00 | NUR ---
IV RESITED BY JEFFERY MUNROE TO LEFT AC. PT TOLERATED WELL. BED IN LOW POSITION AND CALL LIGHT WITHIN REACH. WILL CONTINUE TO MONITOR.
--- NOTE | 2017-05-09 13:38 | NUR ---
NUTRITION MONITORING & EVAL CHART REVIEWED, PT CURRENTLY NPO FOR PROCEDURE. POOR INTAKE REG DIET/ENSURE PRIOR TO NPO STATUS. WILL PROVIDE DIET/ENSURE WHEN RESUMED. RD FOLLOWING
--- NOTE | 2017-05-09 15:57 | NUR ---
RETURNED FROM [facility]. VS 112/55 P 56 R 18 OXYGEN SAT 93% AT 4LNC. ABLE TO COUGH AND SWALLOW SECRETIONS. FAMILY AT BEDSIDE. BED ALARM ON FOR SAFETY. CALL LIGHT IN REACH
--- NOTE | 2017-05-09 17:00 | NUR ---
PT ARRIVED BACK TO FLOOR AT 1600 VITAL SIGNS FOLLOWED BP:112/55, HR:56, O2:93% ON 4L. PT HAS NO VISABLE SIGNS OF DISTRESS. AT 1605 FIRST UNIT OF PRBC'S [id number] WAS INITIATED, VITAL SIGNS FOLLOWED, TEMP:99.7, BP:118/48, PULSE:77, RESP:17. AT 1618 NURSE NOTICED PTS PULSE RISING ON DIAMAP AND PT MAKING SMALL MOVEMENTS, ASKED THE PT TO RELAX AND CALLED CLAIRE AT MONITORS, PT WAS 133 ATRIAL FLUTTER, BP 111/51, TEMP 100.1. CALL PLACED TO DR. CHADWICK RECIEVED ORDERS TO CONSULT CARDIOLOGY. DR. WILKINS PAGED. CALLS AT 1650 AND GAVE VERBAL ORDERS TO ADMINISTER LABETALOL 10MG IV ONE TIME. DR. WILKINS RETURNED PAGE AT 1700 RECIEVED ORDERS TO NOT GIVE LABETALOL AND TO GIVEN BETAPACE 80MG NOW AND CONTINUE WITH 40MG BID. WILL CONTINUE TO MONITOR.
--- NOTE | 2017-05-09 17:35 | NUR ---
RECIEVED ORDERS FROM DR. CHADWICK TO RESTART BLOOD AT 1700, UNIT NUMBER [id number] RESTARTED AT 1710 VITAL SIGNS FOLLOWED: BP:106/58, HR:133A-FLUTTER, RESP:18, TEMP:100.6. VITALS DONE PER PROTOCOL, AT 1725 VITALS RECORDED BP:133/62, TEMP:102.7, HR:94, RESP:18. BLOOD STOPPED DUE TO INCREASE IN TEMP AND BLOOD PRESSURE. PAGE PLACED TO , THU PRETTY RETURNED PHONE CALL AND TELEPHONE ORDERS WERE RECIEVED TO GIVE BENADRYL 25MG IV AND TYLENOL 1000MG ONE TIME, IF TEMP DECREASES AFTER 30 MINUTES GIVE SECOND UNIT OF PRBC'S. WILL CONTINUE TO MONITOR.
--- NOTE | 2017-05-09 18:45 | NUR ---
TEMP AT 1805 WAS 102.7, TYLENOL GIVEN PER ORDER. CALL PLACED TO DR. BENAVIDES AT THIS TIME TO INFORM OF PT CONDITION, RECIEVED ORDERS FOR CEFEPIME 2G EVERY 8 HOURS. RECHECKED PT TEMP AT THIS TIME, TEMP:103.0. REMOVED BLANKETS AND APPLIED COLD CLOTH. WILL CONTINUE TO [facility].
--- NOTE | 2017-05-09 19:05 | NUR ---
RECHECKED TEMP AT THIS TIME, PTS TEMP 101.2. PT TAKEN FOR CT AT THIS TIME.
--- NOTE | 2017-05-09 19:48 | NUR ---
SPOKE WITH DR. WILKINS AT THIS TIME ABOUT PT BEING STRUCT NPO AND NOT BEING ABLE TO TAKE PO MEDS. RECIEVED ORDER CORDARONE DRIP STANDARD. PHONE CALL PLACED TO CLARIBEL AMINSKI PATROL DIRECTOR FOR A BED IN PCU.
--- NOTE | 2017-05-09 20:31 | NUR ---
REPORT TO LIZZETH ON MED 2. PT WILL GO TO ROOM 3563
--- NOTE | 2017-05-09 21:26 | NUR ---
PT TO ROOM 2127 VIA BED.
--- NOTE | 2017-05-09 23:19 | NUR ---
ANSWERING SERVICE CALLED FOR TEMP AND IMMUNOGLOBIN VERIFICATION. AWAITING CALL BACK.
--- NOTE | 2017-05-09 23:20 | NUR ---
22 GAUGE TO LEFT HAND, AMIODARONE LOADING DOSE IN AND DRIP INFUSING AT 1MG/HR 33.3 CC/HR
[2017-05-10 04:00] VITALS: BP 102/60
[2017-05-10 06:07] LABS: HEMATOCRIT 25.7 % (42.0-54.0); MCH 27.6 pg (26.0-34.0); MCHC 31.1 g/dL (31.0-37.0); MCV 88.6 fL (80.0-100.0); RDW 22.6 % (11.5-14.5); WBC 16.1 10x3/uL (4.8-10.8)
[2017-05-10 06:15] LABS: PLATELET COUNT 99 10x3/uL (130-400)
[2017-05-10 07:01] LABS: ANISOCYTOSIS 1+; LYMPHOCYTES 38 % (15-50); MONOCYTES 3 % (2-11); NEUTROPHILS 33 % (40-80); PLATELET ESTIMATE DECREASED; POIKILOCYTOSIS 1+; TARGET CELLS OCC
[2017-05-10 07:19] LABS: ALBUMIN 2.1 g/dL (3.4-5.0); ALKALINE PHOSPHATASE 78 U/L (46-116); ALT (SGPT) 25 U/L (10-68); BILIRUBIN - TOTAL 0.86 mg/dL (0.2-1.3); CALC OSMOLALITY 283 mosm/kg (275-300); CALCIUM 7.9 mg/dL (8.5-10.1); CARBON DIOXIDE 30.9 mmol/L (21.0-32.0); CHLORIDE - SERUM 103 mmol/L (98-107); CREATININE - SERUM 0.9 mg/dL (0.6-1.3); GLUCOSE 106 mg/dL (74-106); MAGNESIUM - SERUM 1.8 mg/dL (1.8-2.4); PHOSPHOROUS 4.4 mg/dL (2.5-4.9); POTASSIUM - SERUM 3.3 mmol/L (3.5-5.1); PROTEIN - SERUM 5.4 g/dL (6.4-8.2); SODIUM 141 mmol/L (136-145); UREA NITROGEN 20 mg/dL (7-18); eGFR NON AFRICAN AMERICAN 90 mL/min (90-120)
[2017-05-10 08:57] VITALS: BP 110/65
--- NOTE | 2017-05-10 12:05 | NUR ---
SPOKE WITH DONNA CHRISTINE RN [facility]. SHE STATED THAT SHE RECEIVED ADMINISTRATIVE APPROVAL FOR THE PATIENT IVIG ORDER. SHE SAID SHE HAS ALREADY SPOKEN WITH PHARMACY AND REQUESTED THAT I SPEAK ABOUT THE INFUSION. I DID SPOKE WITH ILSA ELLISON LPN ABOUT THE APPROVAL OF IT AND TIMELY ADMINISTRATION. WILL FIND OUT IF AN COMMUNITY AFFAIRS MANAGER IS ABLE TO ADMINISTER THIS DRUG AND SPEAK WITH CHARGE NURSE IF SHE IS UNABLE.
[2017-05-10 12:12] VITALS: BP 97/55
--- NOTE | 2017-05-10 18:34 | NUR ---
LYING QUIETLY. DENIES ANY NEEDS. IV CORDARONE INFUSING WELL, NS AT 30. TELEMERTY SHOWS SR. SR UP WITH CALL LIGHT IN REACH
[2017-05-10 19:00] VITALS: BP 116/66
[2017-05-11] VITALS (7 sets, daily range): BP systolic 102–142; BP diastolic 57–71
--- NOTE | 2017-05-11 02:58 | NUR ---
RESTING WITH EYES CLOSED, RESPERATIONS EVEN, NO S/S DISTRESS NOTED.
--- NOTE | 2017-05-11 03:14 | NUR ---
DIALUDID 2 MG GIVEN FOR C/O PAIN TO HIP, RATES PAIN AT AN 8 ON PAIN SCALE. REPOSITIONED IN BED FOR COMFORT, PLACED PILLOW BEHIND RIGHT SIDE, AND ANOTHER PILLOW PLACED UNDER RIGHT ARM. BED LOW, CL IN REACH, BED ALARM IN USE.
--- NOTE | 2017-05-11 07:30 | NUR ---
LUNG SOUNDS DIMINISHED IN LOWER LOBES BILATERALLY. TELEMETRY IN PLACE, SINUS RHYTHM NOTED PER COUNTERINTELLIGENCE SPECIALIST. BOWEL SOUNDS HYPO X 4. PT REPORTS EPISODES OF STOOL INCONTINENCE THROUGHOUT THE NIGHT. EDEMA NOTED TO RIGHT ARM , WARM TO TOUCH AT ANTICUBITUS. RADIAL PULSES EQUAL BILATERALLY, +2. 2+ PITTING EDEMA NOTED ON ANKLES BILATERALLY, FEET COOL TO TOUCH. SCAB NOTED TO BALL OF LEFT FOOT, PT REPORTS THAT THIS IS FROM A PREVIOUS FRACTURE. PINEDA CATH IN PLACE AND DRAINING TO GRAVITY. JAUN TINGED URINE NOTED IN COLLECTION CONTAINER. PT RATING PAIN 10/10 IN HIPS DUE TO "OLD INJURY".
--- NOTE | 2017-05-11 07:30 | NUR ---
PT IN SEMI FOWLERS POSITION. NS INFUSING VIA PUMP @ 30ML/HR TO LEFT HAND; CORDARONE INFUSING VIA PUMP @ 16.7ML/HR TO A SECOND IV IN LEFT HAND.
--- NOTE | 2017-05-11 07:34 | NUR ---
PT IN STORE REPRESENTATIVE LIGHT REPORTING PAIN OF 10/10 IN HIP AND REQUESTS PAIN MEDICATION. DILAUDID 2MG GIVEN SLOW IVP. PRIOR TO MED, PT DISCUSSING FRUSTRATION OVER MISCOMMUNICATION REGARDING A PICC LINE VS PEG TUBE. TAYO ON THE PHONE, DESIRES BOTH TO BE DONE IF POSSIBLE BUT CANNOT EVER GET IN CONTACT WITH THE DOCTOR TO DISCUSS THIS. PT ALSO DESIRES PAIN MEDICATION TO BE CHANGED TO Q 2 HRS. WILL DISCUSS THESE WITH MDS. RESP. EVEN AND UNLABORED. NO DISTRESS NOTED.
--- NOTE | 2017-05-11 09:00 | NUR ---
PT SITTING UP IN BED TALKING WITH . BOTH DENY NEEDS AT THIS TIME.
--- NOTE | 2017-05-11 10:00 | NUR ---
VASCULAR NURSE CONSULT WAS PLACED FOR 05/09 INQUIRING WHY A LINE WAS NEVER PLACED. WILL CALL AND ASK IF PLACEMENT OF CVL IS OKAY. PT C/O HIS R.ARM HURTING, R.ARM FA VERY SWOLLEN, RED, WARM TO THE TOUCH AND TIGHT. RADIAL PULSES PALP AND NORMAL, BRACHIAL DOPPLER WITH GOOD FLOW. ELEVATED R.ARM ON PILLOW AND WILL CONTINUE TO MONITER.
--- NOTE | 2017-05-11 12:00 | NUR ---
PAGED TWICE AND UNABLE TO REACH HIM, WILL NOW PAGE RADHA AND TRY FOR FURTHER ORDERS.
--- NOTE | 2017-05-11 12:32 | NUR ---
RADHA CALLED AND SAID WE CAN CONSULT SX FOR A CVL ACCESS.
--- NOTE | 2017-05-11 13:14 | NUR ---
PTS TEMP UP AT 101.7 INITIATED IV TYLENOL INFUSING OVER 15 MINS. PT IN BED MOANING AND GROANING BUT STATES HIS PAIN IS GETTING A LITTLE BETTER. PT HAS ICE PACKS UNDER HIS ARMS AND LEGS TO HELP WITH THE FEVER. PROVIDED PT WITH HIS ONCOLOGY MOUTHWASH AND HE DID A SWISH AROUND AND SPIT IT OUT. PT VOICED THANKS AND HAS NOTED THRUSH IN MOUTH. PT RESTING WITH AT BEDSIDE. NO FURTHER NEEDS AT THIS TIME. WILL CPOC.
[2017-05-11 13:17] LABS: HEMATOCRIT 26.1 % (42.0-54.0); HEMOGLOBIN 7.9 g/dL (13.5-17.5); MCH 27.7 pg (26.0-34.0); MCHC 30.3 g/dL (31.0-37.0); RBC 2.85 10x6/uL (4.20-6.10); RDW 23.1 % (11.5-14.5); WBC 17.2 10x3/uL (4.8-10.8)
[2017-05-11 13:19] LABS: MCV 91.6 fL (80.0-100.0); PLATELET COUNT 57 10x3/uL (130-400)
[2017-05-11 13:50] LABS: LYMPHOCYTES 44 % (15-50); MONOCYTES 4 % (2-11); NEUTROPHILS 32 % (40-80); PLATELET ESTIMATE DECREASED
[2017-05-11 13:51] LABS: ANISOCYTOSIS 2+; POIKILOCYTOSIS 2+; SCHISTOCYTES 2+; TARGET CELLS 1+
[2017-05-11 13:52] LABS: CRENATED CELLS 2+; HELMET CELLS 1+; HYPOCHROMASIA 1+
--- NOTE | 2017-05-11 14:40 | NUR ---
DR.BHARANYS KASIA ANDINO RETURNED CALL AND OKAY'D FOR PEG PLACEMENT. PLANS TO PLACE CVL TODAY AND PEG TUBE ON SATURDAY PT IS NPO AND WILL NEED NUTRITION. PT ALSO C/O PAIN BEING SEVERE ALMOST CONSTANTLY. DILAUDID CHANGED TO Q2 FOR BETTER PAIN MANAGEMENT. PT AND VOICED THANKS. PT DENIES ANY FURTHER NEEDS AT THIS TIME. CL IN REACH. WILL CPOC.
[2017-05-11 15:12] LABS: AFB SPECIMEN PROCESSING Concentration (())
--- NOTE | 2017-05-11 15:49 | NUR ---
CVL TRIPLE LUMEN PLACED AT BEDSIDE BY . PLACED TO L.CHEST. BIOPATCH IN PLACE, DRSG ADHERED TO SKIN AND SWAB CAPS IN USE. PT SITTING UP IN BED AWAITING CHEST XRAY TO CONFIRM PLACEMENT.
--- NOTE | 2017-05-11 16:10 | NUR ---
PT TURNED FROM SIDE TO SIDE, PINK PAD CHANGED DUE TO ICE PACK LEAKING. DARKENED AREA WITH DRY, FLAKY SKIN NOTED TO RIGHT OF SACRUM. PT DENIES PAIN AT SITE. PT TILTED TO LEFT SIDE. DENIES FURTHER NEEDS, REMAINS AT BEDSIDE.
--- NOTE | 2017-05-11 17:00 | NUR ---
CURRENT INFUSIONS MOVED FROM LEFT HAND TO CVL AFTER BLOOD DRAW. ASSISTING WITH SWISH AND SPIT MEDS.
--- NOTE | 2017-05-11 17:04 | NUR ---
PT RATING PAIN 8/10 IN HIP AND REQUESTS DILAUDID. DILAUDID 2MG GIVEN SLOW IVP.
[2017-05-11 17:59] LABS: BASOPHILS 2.3 % (0-2); EOSINOPHILS 0.3 % (0-7); HEMATOCRIT 24.3 % (42.0-54.0); MCH 27.7 pg (26.0-34.0); MCHC 30.9 g/dL (31.0-37.0); MCV 89.7 fL (80.0-100.0); MONOCYTES 11.5 % (2-11); RBC 2.71 10x6/uL (4.20-6.10); WBC 16.8 10x3/uL (4.8-10.8)
[2017-05-11 18:03] LABS: HEMOGLOBIN 7.5 g/dL (13.5-17.5)
[2017-05-11 18:05] LABS: LYMPHOCYTES 0 % (15-50); MEAN PLATELET VOLUME 0 fL (7.4-10.4); NEUTROPHILS 0 % (40-80)
[2017-05-11 18:06] LABS: PLATELET COUNT 49 10x3/uL (130-400)
[2017-05-11 18:19] LABS: CALC OSMOLALITY 283 mosm/kg (275-300); CALCIUM 7.7 mg/dL (8.5-10.1); CARBON DIOXIDE 31.7 mmol/L (21.0-32.0); CHLORIDE - SERUM 103 mmol/L (98-107); CREATININE - SERUM 0.7 mg/dL (0.6-1.3); GLUCOSE 91 mg/dL (74-106); SODIUM 142 mmol/L (136-145); UREA NITROGEN 16 mg/dL (7-18); eGFR NON AFRICAN AMERICAN > 90 mL/min (90-120)
[2017-05-11 18:29] LABS: PLATELET ESTIMATE DECREASED
--- NOTE | 2017-05-11 18:30 | NUR ---
PT IN SEMI FOWLERS POSITION. EXPLAINED TO PT THAT ONE OF THE IVS IN HIS LEFT HAND WAS REMOVED WITH THE TIP INTACT AT 1700. PT VERBALIZES MEMORY NOW. PT HAVING DIFFICULTY WITH SHORT TERM MEMORY. PINEDA CATH EMPTIED. URINE REMIANS JUAN IN COLOR. PT DENIES FURTHER NEEDS AT THIS TIME
--- NOTE | 2017-05-11 22:15 | NUR ---
INITIAL ROUDNS COMPLETED AT 1910 HRS. PT DENIED ANY DISCOMFORT. ASSESSMENT COMPLETED AT 1945 HRS. VSS. SR PER CM HR 76. LTLSC WITH CORDARONE AT 16.7CC/HR (0.5MG) AND OTHER 2 PORTS NS TKO FOR IVAB. IV TO LHAND SL. 02 3LNC. LUNGS DIMINISHE DIN BASES BILAT. SCABS AND BRUISES NOTED TO BILAT ARMS. BUTTOCKS SLIGHTLY RED. PM MEDS GIVEN PER ORDERS WELL DILAUDID 2MG SIVP FOR C/O FOOT AND HIP PAIN. PT CURRENTLY RSTING WITH EYES CLOSED. RESP EVEN AND REGULAR. SR UP X2, CALL LIGHT WITHIN REACH.
--- NOTE | 2017-05-11 23:52 | NUR ---
BEDBATH IN PROGRESS. WILL CONTINUE TO MONITOR.
--- NOTE | 2017-05-12 00:16 | NUR ---
DILAUDID 2MG SIVP GIVNE FOR C/O EXCRUIATING HIP PAIN. WILL CONTINUE TO MONITOR.
[2017-05-12 01:02] VITALS: BP 119/59
--- NOTE | 2017-05-12 02:55 | NUR ---
DILAUDID 2MG SIVP GIVEN FOR C/O HIP PAIN AT 5 HRS. PT CURRENTLY STATES PAIN 02/02. WILL CONTINUE TO MONITOR.
--- NOTE | 2017-05-12 04:20 | NUR ---
PT AWAKE; STATES PAIN IS TOLERABLE AT THIS TIME. WILL CONTINUE TO MONITOR. BED ALARM ON.
[2017-05-12 05:12] VITALS: BP 146/81
[2017-05-12 05:29] LABS: HEMATOCRIT 23.5 % (42.0-54.0); MCH 27.4 pg (26.0-34.0); MCHC 30.2 g/dL (31.0-37.0); MCV 90.7 fL (80.0-100.0); RBC 2.59 10x6/uL (4.20-6.10); RDW 22.8 % (11.5-14.5)
[2017-05-12 05:36] LABS: HEMOGLOBIN 7.1 g/dL (13.5-17.5); PLATELET COUNT 32 10x3/uL (130-400)
--- NOTE | 2017-05-12 05:36 | NUR ---
VSS THROUGHOUT NIGHT. PT STATES DILAUDID HELPS FOOT/HIP PAIN. PT AND VERY UPSET THIS AM NO ORDERS FOR TPN. STATED DR GARCIA TOLD HER HE WOULD ORDER. NO ORDERS. INFORMED WILL ADRESS WITH MD IN AM. WILL CONTINUE TO MONITOR.
[2017-05-12 05:45] LABS: CALC OSMOLALITY 281 mosm/kg (275-300); CALCIUM 8.3 mg/dL (8.5-10.1); CARBON DIOXIDE 32.6 mmol/L (21.0-32.0); CHLORIDE - SERUM 104 mmol/L (98-107); CREATININE - SERUM 0.8 mg/dL (0.6-1.3); GLUCOSE 101 mg/dL (74-106); MAGNESIUM - SERUM 1.7 mg/dL (1.8-2.4); PHOSPHOROUS 3.2 mg/dL (2.5-4.9); SODIUM 141 mmol/L (136-145); UREA NITROGEN 14 mg/dL (7-18); eGFR NON AFRICAN AMERICAN > 90 mL/min (90-120)
[2017-05-12 05:46] LABS: POTASSIUM - SERUM 2.8 mmol/L (3.5-5.1)
[2017-05-12 06:08] LABS: ANISOCYTOSIS OCC; BASOPHILS 1 % (0-2); LYMPHOCYTES 31 % (15-50); MONOCYTES 3 % (2-11); NEUTROPHILS 41 % (40-80); PLATELET ESTIMATE DECREASED; POIKILOCYTOSIS OCC; TARGET CELLS OCC
--- NOTE | 2017-05-12 06:33 | NUR ---
AM KCL 2.8. KCL 10MEQ/100 CC STARTED AT 100CC/HR. DR WATERS'S OFFICE CALLED. AT 0635 HRS. THU PEDROZA RETURNS CALL. INFORMED OF HAND H, PLT AND KCL. ALSO INFORMED THAT PT AND SPOUSE UPSET THAT TPN WAS NOT STARTED. NO NEW ORDERS.
--- NOTE | 2017-05-12 07:40 | NUR ---
AM ROUNDS COMPLETED. INTRODUCED MYSELF TO PT PRIMARY RN. SHIFT ASSESSMENT COMPLETED. PT A&O SITTING UP IN BED C/O R.HIP PAIN SEVERELY HURTING REQUESTING AND PROVIDED WITH PRN DILAUDID. PTS POTASSIUM LOW AND RECIEVING RIDERS PER EP REPLACEMENT. HUNG BAG 10/01. PT HAS PINEDA DRAINING TO GRAVITY OFF L.SIDE OF BED CONCENTRATED URINE COLOR. PT SUPPOSE TO HAVE NUTRITION INTIATED TODAY AND PHARMACY IS DOSING. ELEVATED R.ARM ON PILLOW R/T SWELLING AND REDDNESS. PT VOICED THANKS AND DENIES ANY FURTHER NEEDS AT THIS TIME. CL IN REACH, BED IN LOWEST, SIDE RAILS X2 AND BUILT IN BED ALARM ON. WILL CPOC.
[2017-05-12 08:00] VITALS: BP 113/57
--- NOTE | 2017-05-12 10:10 | NUR ---
DOSE 2/3 POTASSIUM IV GIVEN FOR REPLACEMENT PROTOCOL. WILL CONTINUE EP ORDERS.
--- NOTE | 2017-05-12 10:19 | NUR ---
EMPTY PINEDA BAG OF 1700ML CONCENTRATED URINE. PROVIDED PT WITH PRN PAIN MEDICATION REQUESTED AND PROVIDED ORAL CARE FOR DRY MOUTH. PT STILL NPO EXCEPT ICE CHIPS, PLANNING FOR PEG TUBE PLACEMENT TOMORROW. HUNG POTASSIUM FOR ELECTROLYTE PROTOCOL REPLACEMENT. PT RESTING AND DENIES ANY FURTHER NEEDS AT THIS TIME. CL IN REACH. WILL CPOC.
[2017-05-12 12:00] VITALS: BP 115/62
--- NOTE | 2017-05-12 12:18 | NUR ---
DOSE 3/3 IV POTASSIUM GIVEN PER ELECTROLYTE PROTOCOL. PT TOLERATED WITHOUT ANY BURNING OR ISSUES.
--- NOTE | 2017-05-12 14:41 | NUR ---
PROVIDED PT WITH PRN PAIN MEDICATION FOR HIS RIGHT HIP PAIN. AT BEDSIDE MASSAGING IT WELL. R.ARM STILL VERY SWOLLEN, ELEVATED IT ON A PILLOW AND PROVIDED PT WITH AN ICE PACK. PT VOICED THANKS. PT IS GOING TO TRY AND PARTICIPATE IN THERAPY SHORTLY AND DENIES ANY FURTHER NEEDS AT THIS TIME. CL IN REACH. WILL CTM.
--- NOTE | 2017-05-12 15:56 | NUR ---
PT MOANING AND GROANING STATES HE FELT HOT. TEMP CHECKED AND PT IS FEBRILE AT 101.7 WILL INITIATE IV TYLENOL. PROVIDED PT WITH COLD RAG TO HEAD AND ICE PACKS UNDER HIS ARMPITS. WILL CONTINUE TO MONITER CLOSELY.
[2017-05-12 16:00] VITALS: BP 140/72
--- NOTE | 2017-05-12 16:44 | NUR ---
PTS TEMP DOWN TO 100.0 AFTER TYLENOL INFUSED. PT IS IN SEVERE PAIN AND WAS PROVIDED WITH PRN PAIN MEDICATION. PT IS DIAPHORETIC AND STARTING TO SWEAT OFF FEVER. D/C PTS L.HAND PIV WITH CATH TIP FULLY INTACT. SLIGHT RASH/REDDNESS NOTED TO L.ARM WILL CONTINUE TO WATCH FOR ANY REACTIONS COULD JUST BE FROM SKIN IRRITATION IN BED. R.ARM STILL VERY SWOLLEN, ALL PULSES STRONG AND PALPABLE PITTING EDEMA +3 NOTED TO R.ELBOW, ELEVATED ARM ON PILLOWS AGAIN.
[2017-05-12 19:00] VITALS: BP 140/61
--- NOTE | 2017-05-12 23:13 | NUR ---
INITIAL ROUNDS COMPLETED AT 1920 HRS. PT STATES HE NEEDS DILAUDID. DILAUDID 2MG SIVP GIVEN AT 1947 HRS. ASSESSMENT COMPLETED AT 2024 HRS. VSS. SR PER CM HR 81. PINEDA DRAINING YELLOW URINE. LTLSC WITH CORDARONE AT 16.7CC/HR (1/2MG/MIN) TO MEDIAL PORT, PROCALAMINE AT 75CC/HR TO DISTAL PORT AND NS AT TKO FOR IVAB TO DISTAL PORT. O2 3LNC. LUNGS DIMINISHED IN BASES BILAT. R ARM RED AND SWOLLEN. LOWER EXTREMITIES BROWN. BUTTOCKS SLIGHTLY RED. PM MEDS GIVEN. DILAUDID 2MG SIVP GIVEN AT 2152 HRS FOR C/O SEVERE HIP PAIN. LAB CALLED AFTER DILAUDID ADMINISTRATION AND ASKED WHEN BLOOD WILL BE READY. INFORMED BY LAB THEY DO NOT HAVE ANY ORDERS FOR BLOOD. ORDER PULLED ON SCREEN AND READ TO LAB INCLUDING ORDER NUMBER. LAB STATED NO ORDERS AND NURSING NEEDS TO FIX. Troy RIOS RNAIR TESTER NOTIFIED. COPIES OF ORDERS OBTAIN AND BROUGHT TO LAB. LAB STAFF STATED NOT IN THEIR COMPUTER SO NURSING NEEDS TO FIX. ORDERS TO TRANSFUSE 2 UNITS PRBC'S REDONE. BLOOD DRAWN FROM CENTRAL LINE WITH LAB AT BEDSIDE. WILL CONTINUE TO MONITOR.
--- NOTE | 2017-05-12 23:34 | NUR ---
PT STATES WILL SIGN CONSENT IN AM.
--- NOTE | 2017-05-13 00:41 | NUR ---
1ST UNIT PRBC'S STARTED AT 0040 HRS. VSS. PT NOW STATES PAIN LEVEL 9/10.
[2017-05-13 01:06] VITALS: BP 156/63
--- NOTE | 2017-05-13 01:21 | NUR ---
PT DEMANDING PAIN MEDS NOW. INFORMED RECEIVED LAST DOSE OF DILAUDID AT 0005 HRS AND NEXT DOSE DUE AT 0200. PT STATED HE DID NOT CARE AND WANTED IT NOW HE WAS HURTING. REINFORCED NEXT DOSE AT 0200. WILL CONTINUE TO MONITOR.
--- NOTE | 2017-05-13 02:46 | NUR ---
DILAUDID 2MG DELPHINE WOODARD AT 0200 FOR C/O SEVERE HIP PAIN. PT ACCUSED STAFF OF NOT GIVING HIM HIS DILADID ALL NIGHT LONG. SHOWED PT ON OCT WHEN DILAUDI GIVEN. PT THEN ASKED WHEN HE WAS GOING TO GE HIS 0200 DOSE. INFORMED PT 0200 DOSE GIVEN. INFORMED PT THAT HE MAY REQUEST DILAUDI AT 0400 HRS. CALL LIGHT WITHIN REACH. PT REPOSITIONED IN BED FOR COMFORT. PT CURRENTLY CALLING FAMILY ON CELL PHONE. WILL CONTINUE TO MONITOR.
--- NOTE | 2017-05-13 03:46 | NUR ---
[facility] PER CM HR 146. PT ASYMPTOMATIC BUT STATES HE FEELS IT IS HIGH. PT CURRENTLY ON A CORDARONE DRIP. WILL CONTINUE TO MONITOR.
--- NOTE | 2017-05-13 03:56 | NUR ---
HR NOW [facility]CAF RATE IN 110'S. WILL CONTINUE TO MONITOR.
[2017-05-13 04:27] VITALS: BP 118/66
--- NOTE | 2017-05-13 04:49 | NUR ---
PT CONVERTED BACK TO SR AT 0426 HRS. HR 93. WILL CONTINUE TO MONITOR.
[2017-05-13 06:02] LABS: HEMATOCRIT 26.6 % (42.0-54.0); HEMOGLOBIN 8.4 g/dL (13.5-17.5); MCH 28.3 pg (26.0-34.0); MCHC 31.6 g/dL (31.0-37.0); MCV 89.6 fL (80.0-100.0); RBC 2.97 10x6/uL (4.20-6.10); RDW 20.9 % (11.5-14.5)
--- NOTE | 2017-05-13 06:05 | NUR ---
2ND UNIT OF BLOOD COMPLETED AT 0530 HRS. PROCALAMINE RESTARTED AT 75CC/HR TO MEDIAL PORT. PT CURRENTLY RESTING WITH EYES CLOSED. RESP EVEN AND REGULAR. NEEDS MET; WILL CONTINUE TO MONITOR.
[2017-05-13 06:09] LABS: PLATELET COUNT 20 10x3/uL (130-400)
[2017-05-13 06:13] LABS: APTT 33.7 SECONDS (22.8-39.4); INR 1.24 (0.85-1.17); PROTIME 15.5 SECONDS (11.6-15.0)
--- NOTE | 2017-05-13 06:34 | NUR ---
JCL 10MEQ IV STARTED PER ELECTROLYTE PROTOCOL FOR K+ 2.8. PT BACK IN UCAF HR 016. WILL CONTINUE TO MONITOR.
--- NOTE | 2017-05-13 06:36 | NUR ---
DR WATERS'S OFFICE PAGED.
[2017-05-13 06:53] LABS: ANISOCYTOSIS OCC; HYPOCHROMASIA 1+; LYMPHOCYTES 29 % (15-50); MONOCYTES 12 % (2-11); NEUTROPHILS 31 % (40-80); PLATELET ESTIMATE DECREASED; SCHISTOCYTES 1+; SMUDGE CELLS OCC
--- NOTE | 2017-05-13 07:04 | NUR ---
THU PEDROZA RETURNS CALL AT 0700 HRS. INFORMED OF PT'S PLATLET LEVEL. NEW ORDERS RECEIVED AND NOTED.
[2017-05-13 09:09] VITALS: BP 104/48
[2017-05-13 12:48] VITALS: BP 116/57
--- NOTE | 2017-05-13 13:37 | NUR ---
Nutrition Follow Up: Noted pt is s/p PEG placement. Pt reported that he was glad about having a PEG now so he could have help maintaining his strength. Pt c/o extreme hip pain. Pt is eating 0% at most meals on a regular diet. Pt is now NPO. +BM 05/08/17. Labs reviewed. Meds noted including Lasix, Prednisone, Procalamine @ 75 ml/hr providing 441 kcal and 52 g protein. When ok with General Surgery, rec begin TF of Jevity 1.5 @ 20 ml/hr. Advance 10 ml every 6-8 hours as tolerated to goal rate of 75 ml/hr. Goal rate will provide 2700 kcal, 113 g protein and 1350 ml free water. H20 flushes of 55 ml/hr. Rec d/c Procalamine once TF is started. RD following.
[2017-05-13 14:15] LABS: FUNGUS STAIN Final report (())
--- NOTE | 2017-05-13 15:28 | NUR ---
LYING QUIETLY. HOB UP. DENIES ANY NEEDS. FAMILY AT BEDSIDE. CALL LIGHT IN REACH WITH SR UP
[2017-05-13 17:14] VITALS: BP 118/59
[2017-05-13 19:00] VITALS: BP 122/61
--- NOTE | 2017-05-13 22:27 | NUR ---
PATIENT IS ALERT AND RESTING WELL IN BED WATCHING TV, DENIES ANY NEEDS AT THIS TIME. CALL LIGHT IN REACH.
[2017-05-14] VITALS: BP 133/72
--- NOTE | 2017-05-14 02:30 | NUR ---
LYING IN BED, CALL LIGHT IN REACH. WILL CONTINUE WITH PLAN OF CARE
[2017-05-14 04:00] VITALS: BP 163/64
[2017-05-14 06:03] LABS: CALC OSMOLALITY 276 mosm/kg (275-300); CALCIUM 8.4 mg/dL (8.5-10.1); CARBON DIOXIDE 30.1 mmol/L (21.0-32.0); CHLORIDE - SERUM 101 mmol/L (98-107); CREATININE - SERUM 0.7 mg/dL (0.6-1.3); GLUCOSE 112 mg/dL (74-106); SODIUM 138 mmol/L (136-145); UREA NITROGEN 13 mg/dL (7-18); eGFR NON AFRICAN AMERICAN > 90 mL/min (90-120)
--- NOTE | 2017-05-14 06:05 | NUR ---
Patient in bed sleeping, call light within reach.
[2017-05-14 06:14] LABS: HEMATOCRIT 27.4 % (42.0-54.0); HEMOGLOBIN 8.7 g/dL (13.5-17.5); MCHC 31.8 g/dL (31.0-37.0); MCV 88.1 fL (80.0-100.0); RBC 3.11 10x6/uL (4.20-6.10); RDW 21.1 % (11.5-14.5); WBC 18.6 10x3/uL (4.8-10.8)
[2017-05-14 06:34] LABS: PLATELET COUNT 32 10x3/uL (130-400)
[2017-05-14 07:12] LABS: LYMPHOCYTES 34 % (15-50); MONOCYTES 1 % (2-11); NEUTROPHILS 55 % (40-80); PLATELET ESTIMATE DECREASED
--- NOTE | 2017-05-14 07:27 | NUR ---
Nutrition Consult: Consult received to begin TF. Pt is POD 1 PEG placement. Will put order in to start TF of Jevity 1.5 @ 20 ml/hr. Advance 10 ml every 6-8 hours as tolerated to goal rate of 75 ml/hr. H2O flushes 55 ml/hr. Hold TF of residuals > 200 ml. Rec d/c Procalamine. RD following
[2017-05-14 08:25] VITALS: BP 131/72
--- NOTE | 2017-05-14 11:11 | NUR ---
Assessed coccyx area at request of assigned nurse. Mild excoriation to inner aspect of left buttock and milder but similar area to inner aspect of left buttock. Surrounding area red, blanchable. Removed pt from bedpan at this time, as pt unable to have a bowel movement. Recommend pt to turn from side to side as he is able, request staff to assist him in pressure redistribution, recommend keeping area dry, continue to use Mitra's Butt Paste. No dressing recommended at this time. Educated pt regarding adequate nutrition, fluids, and repositioning. Pt verbalized understanding, but will require reminders and assistance.
[2017-05-14 12:12] VITALS: BP 107/68
[2017-05-14 16:24] VITALS: BP 131/68
--- NOTE | 2017-05-14 16:50 | CN ---
PATIENT NAME:ISADORA SILVESTRE [facility] MEDICAL RECORD: [id number] : 54 LOCATION:D. D.2127 ADMIT DATE: 04/29/17 ACCOUNT: [id number] CONSULTING PHYSICIAN: CHELO DEWEY MD REFERRING PHYSICIAN: JACEK CHADWICK MD DATE OF CONSULTATION: 04/29/2017 CONSULT REQUESTING PHYSICIAN: Jacek Chadwick MD. REASON FOR CONSULTATION: Pneumonia and fever. HISTORY OF PRESENT ILLNESS: Mr. Silvestre is a 67-year-old gentleman, who has a history of chronic lymphocytic leukemia status post splenectomy and seizure disorder. He is on oral chemotherapy. The patient had fever for the last couple of days. Today, he has a fever of 102 and the patient was brought into the ER. The patient was admitted for pneumonia and fever and was transferred to the floor. The patient's heart rate was about 115, he was in atrial fibrillation. Rapid response was called and the patient was brought into the ICU. Now, he is feeling very weak and lethargic. REVIEW OF SYSTEMS: Mainly in the history of present illness. PAST MEDICAL HISTORY: 1. Chronic lymphocytic leurkemia. 2. History of MRSA pneumonia in 2012. 3. History of non-Hodgkin lymphoma. PAST SURGICAL HISTORY: 1. He has herniorrhaphy. 2. Splenectomy. 3. Left retinal repair. 4. Right leg fracture and surgery. ALLERGIES: HE IS ALLERGIC TO BUSPIRONE AND MORPHINE. PRESENT MEDICATIONS: On Altimettech was reviewed. PERSONAL AND SOCIAL HISTORY: The patient is a nonsmoker and nondrinker. FAMILY HISTORY: Significant for cancer. PHYSICAL EXAMINATION: GENERAL: Now, the patient is lying comfortably in bed, he is not in acute distress. VITAL SIGNS: The blood pressure is 90/51, pulse is 175, respirations 18 and temperature is 102.2. HEENT: Conjunctiva is pale. Sclerae is not icteric. NECK: Supple. No JVD. CHEST: There are crackles on the right side. No wheezing. HEART: Rate and rhythm irregular. Normal sound. No murmur. ABDOMEN: Soft, bowel sounds present. No hepatosplenomegaly. RECTAL: Deferred. EXTREMITIES: No cyanosis, no clubbing and no pedal edema. SKIN: Warm, normal turgor. CENTRAL NERVOUS SYSTEM: The patient is awake and alert. There is no obvious CONSULT REPORT [id number] ISADORA SILVESTRE cranial nerve abnormality. The gait was not tested. CHEST RADIOGRAPH: There is right perihilar infiltrate. LABORATORY DATA: CBC: WBC 22.4, hemoglobin 7.7, hematocrit 25.2 and the platelet count is 99. Chemistry: Sodium 135, potassium 4.3, BUN is 23, creatinine 0.9 and glucose 72. Total bilirubin is 1.73. IMPRESSION: 1. Acute hypoxic respiratory failure. 2. Pneumonia in the right perihilar area, most likely community-acquired pneumonia in an immunocompromised patient with a splenectomy and chronic lymphocytic leukemia, on chemotherapy. 3. Presumed atrial fibrillation with rapid ventricular response. 4. Hypotension. 5. Chronic lymphocytic leukemia, on chemo. 6. History of non-Hodgkin lymphoma. 7. Anemia, most likely secondary to chemotherapy. 8. Leukocytosis. 9. Thrombocytopenia. 10. Fever of a 102 due to pneumonia. RECOMMENDATION: 1. Continue Levaquin. I will add cefepime and vancomycin to cover for Gram-negative rods as well as MRSA. 2. Supplemental oxygen as required. 3. Atrial fibrillation. Dr. Ambrocio has been consulted. The patient is given a dose of digoxin. 4. Intravenous fluids. 5. Followup labs and chest radiograph. 6. Check the blood cultures times 2. Dr. Chadwick, thank you for involving me in the care of Mr. Silvestre. TRANSINT:[id number] Voice Confirmation ID: [id number] DOCUMENT ID: [id number] CHELO DEWEY MD at 1650 CC: JACEK CHADWICK MD [id number] DICTATION DATE: 04/29/17 165 CORE BLOWER: 04/29/17 1933 ADM IN [facility] [address] [place] [address]
--- NOTE | 2017-05-14 17:56 | NUR ---
THIS SHIFT, PATIENT HAS SAT UP IN CHAIR. WITHOUT ANY DIFFICUTLY. PINEDA WITH CONCENTRATED URINE. HAS VISITED WITH PT. ASSISTED BACK TO BED AND WAS MEDICATED FOR PAIN. DR. ARAM LAMBERT FOR PEG USE FOR FEEDING.
[2017-05-14 19:00] VITALS: BP 147/77
--- NOTE | 2017-05-14 21:26 | NUR ---
PATIENT IS ALERT AND RESTING IN BED, SOME CONFUSION NOTED. BED IN LOWEST POSTION, ORIENTED TO CALL LIGHT, CALL LIGHT IN REACH.
[2017-05-15] VITALS (7 sets, daily range): BP systolic 118–135; BP diastolic 68–81
[2017-05-15 03:34] LABS: MCH 28.1 pg (26.0-34.0); MCV 87.7 fL (80.0-100.0); RBC 2.85 10x6/uL (4.20-6.10); RDW 21.1 % (11.5-14.5)
[2017-05-15 03:35] LABS: PLATELET COUNT 40 10x3/uL (130-400)
[2017-05-15 03:44] LABS: CALC OSMOLALITY 276 mosm/kg (275-300); CALCIUM 8.4 mg/dL (8.5-10.1); CARBON DIOXIDE 28.7 mmol/L (21.0-32.0); CHLORIDE - SERUM 102 mmol/L (98-107); CREATININE - SERUM 0.6 mg/dL (0.6-1.3); GLUCOSE 103 mg/dL (74-106); SODIUM 138 mmol/L (136-145); UREA NITROGEN 14 mg/dL (7-18); eGFR NON AFRICAN AMERICAN > 90 mL/min (90-120)
[2017-05-15 03:55] LABS: LYMPHOCYTES 25 % (15-50); MONOCYTES 4 % (2-11); NEUTROPHILS 54 % (40-80); PLATELET ESTIMATE DECREASED
[2017-05-15 03:59] LABS: POTASSIUM - SERUM 2.9 mmol/L (3.5-5.1)
--- NOTE | 2017-05-15 06:13 | NUR ---
Jevity 1.5 started at 20ml/hr, tolerating feeds well. Call light in reach, denies needs at this time.
--- NOTE | 2017-05-15 09:00 | NUR ---
JEVITY INCREASED TO 30. REPOSITIONED. NO NEEDS VOICED. STILL CONFUSED
--- NOTE | 2017-05-15 10:19 | NUR ---
RESP UL ON . IV PATENT. TF INFUSING. CALL LIGHT IN REACH. WILL CONT. PLAN OF CARE.
--- NOTE | 2017-05-15 11:56 | NUR ---
ASSESSMENT COMPLETED. PT IS CONFUSED, TO TIME AND SISUTATION.PT HAS A LEFT TRIPLE SUBCLAVIAN PATENT WITH NS AT 10. JEVITY 1.5 AT 20CC HR. SR UP WITH CALL LIGHT IN REACH. WILL MONITOR
[2017-05-15 21:12] LABS: CALC OSMOLALITY 286 mosm/kg (275-300); CALCIUM 8.3 mg/dL (8.5-10.1); CARBON DIOXIDE 29.8 mmol/L (21.0-32.0); CHLORIDE - SERUM 105 mmol/L (98-107); CKMB 0.1 U/L (0.0-3.6); CREATINE KINASE 21 UL (21-232); CREATININE - SERUM 0.7 mg/dL (0.6-1.3); GLUCOSE 147 mg/dL (74-106); PHOSPHOROUS 2.3 mg/dL (2.5-4.9); SODIUM 142 mmol/L (136-145); UREA NITROGEN 16 mg/dL (7-18); eGFR NON AFRICAN AMERICAN > 90 mL/min (90-120)
[2017-05-15 21:16] LABS: TROPONIN-I 0.461 ng/mL (0.000-0.060)
--- NOTE | 2017-05-15 22:30 | NUR ---
PATIENT'S TELEMETRY SHOWS ST ELEVATION, DENIES CHEST PAIN. CARDIAC ENZYMES ORDERED AND SHOWS ELEVATED TROPONIN LEVEL. PER DR ORTIZ WILL RECHECK CARDIAC ENZYMES IN THE AM. CALL LIGHT IN REACH, PATIENT IS RESTING WELL AT THIS TIME.
[2017-05-16] VITALS (13 sets, daily range): BP systolic 93–128; BP diastolic 56–71
--- NOTE | 2017-05-16 02:43 | NUR ---
CALL LIGHT IN REACH, WILL CONTINUE WITH PLAN OF CARE.
[2017-05-16 04:35] LABS: HEMATOCRIT 24.6 % (42.0-54.0); HEMOGLOBIN 7.9 g/dL (13.5-17.5); MCH 28.3 pg (26.0-34.0); MCHC 32.1 g/dL (31.0-37.0); MCV 88.2 fL (80.0-100.0); RBC 2.79 10x6/uL (4.20-6.10); RDW 21.3 % (11.5-14.5); WBC 18.1 10x3/uL (4.8-10.8)
[2017-05-16 04:45] LABS: PLATELET COUNT 15 10x3/uL (130-400)
[2017-05-16 05:36] LABS: CALC OSMOLALITY 289 mosm/kg (275-300); CALCIUM 8.3 mg/dL (8.5-10.1); CARBON DIOXIDE 31.4 mmol/L (21.0-32.0); CHLORIDE - SERUM 105 mmol/L (98-107); CKMB 0.2 U/L (0.0-3.6); CREATINE KINASE 19 UL (21-232); CREATININE - SERUM 0.7 mg/dL (0.6-1.3); GLUCOSE 152 mg/dL (74-106); SODIUM 143 mmol/L (136-145); UREA NITROGEN 17 mg/dL (7-18); eGFR NON AFRICAN AMERICAN > 90 mL/min (90-120)
[2017-05-16 05:37] LABS: LYMPHOCYTES 39 % (15-50); MONOCYTES 4 % (2-11); NEUTROPHILS 31 % (40-80); PLATELET ESTIMATE DECREASED
[2017-05-16 05:43] LABS: POTASSIUM - SERUM 2.8 mmol/L (3.5-5.1)
[2017-05-16 05:44] LABS: TROPONIN-I 0.316 ng/mL (0.000-0.060)
--- NOTE | 2017-05-16 07:00 | NUR ---
DURING REPORT NIGHT NURSE CHELSEA SAID SHE ALREADY HAS A PAGE IN TO DR CHADWICK TO NOTIFY HIM OF PT PLATELET OF 15
--- NOTE | 2017-05-16 07:22 | NUR ---
PT SITTING UP IN BED SLEEPING NO S/S DISTRESS NOTED RR EVEN AND UNLABORED WILL CONT TO MONITOR
--- NOTE | 2017-05-16 09:28 | NUR ---
DR CHADWICK AWARE OF PT ELEVATED TROPONIN AND LOW PLATELET COUNT, SAID TO GIVE 2 UN PLATELETS. RESTART PT KLONOPIN 2 MG BID, XRAY R HIP FOR PT BAD HIP PAIN (PT FELL AT HOME), AWARE OF PT POTASSIUM, 2.8 (TREATING PER ELEC BRANNON)
--- NOTE | 2017-05-16 10:58 | NUR ---
PT ORDERED TO HAVE 2 UNITS OF PLATELETS. CONSENT FOR BLOOD PRODUCTS IS ON THE CHART AND SIGNED. VS ARE WNL. STARTED FIRST UNIT OF PLATELETS, INFUSING WITHOUT ANY ISSUES WILL CONT TO MONITOR.
--- NOTE | 2017-05-16 11:55 | NUR ---
PT FIRST TRANSFUSION OF PLATELETS DONE. STARTED SECOND. VS ARE STILL WNL.
--- NOTE | 2017-05-16 12:12 | NUR ---
PT STILL WITHOUT ANY REACTION FROM PLATELETS, TOLERATING WELL. PAIN MEDICINE GIVEN PER PT REQUEST. FAMILY IS AT BEDSIDE.
--- NOTE | 2017-05-16 12:17 | NUR ---
Nutrition Follow Up: Pt was asleep at the time of RD visit. Spoke with pt's nurse who reported that she was going to increase TF rate today. Per nursing pt tolerating current TF regimen of Jevity 1.5 @ 40 ml/hr, H2O flush of 55 ml/hr. +BM 05/08/17 - no BM x 8 days. Labs reviewed. Meds noted including Lasix, Prednisone. Rec continue current TF regimen with gradual increase to goal rate of 75 ml/hr. RD following.
--- NOTE | 2017-05-16 13:01 | NUR ---
PT HR AND RHYTHM STILL SINUS RHYTHM ON TELE AFTER PO DOSE OF AMIODORONE. DC AMIODORONE DRIP, NOTIFIED OPTIONS ADVISOR AAKASH. WILL CONT TO MONITOR. FAMILY AT BEDSIDE
--- NOTE | 2017-05-16 15:35 | NUR ---
PT TOLERATING TUBE FEED WELL, RESIDUAL CHECK OF 15 CC. INCREASED TUBE FEEDING TO 60 CC/HR. WILL PASS ON IN REPORT THAT TUBE FEEDING NEEDS TO BE INCREASED Q6 HOURS.
--- NOTE | 2017-05-16 16:21 | NUR ---
PT WAS GONE FOR A WHILE, PT KEPT ASKING FOR HIS CELL PHONE TO CALL HIS BROTHER. LOOKED EVERYWHERE IN ROOM AND CELL PHONE NOT HERE. JUST GOT BACK, I ASKED HER AND SHE SAID THAT SHE HAS IT AT HOME. HE CALLED SEVERAL PEOPLE DURING THE NIGHT FOR SEVERAL NIGHTS DURING CONFUSED STATE, SO SHE TOOK IT AWAY.
--- NOTE | 2017-05-16 19:52 | NUR ---
ALERT/AWAKE RECEIVING UPDRAFT TX. ASSESSMENTS COMPLETED. LEFT CHEST CVL DRSG C/D/I WITH NS INFUSING AT 20ML/HR. PEG TUBE WITH JEVITY 1.5 VALERIE INFUSING AT 60 ML/HR. PINEDA INTACT/PATENT. HIS IS PRESENT IN ROOM.
--- NOTE | 2017-05-16 21:00 | NUR ---
CHECKED RESIDUAL AT 5CC. ADMIN SCHED MEDS CRUSHED THROUGH PEG TUBED AND FLUSHED WITH 20ML TAP WATER.
--- NOTE | 2017-05-16 22:50 | NUR ---
C/O HEADACHE, ADMIN TYLENOL 1000 MG CRUSHED THROUGH PEG TUBE AND FLUSHED WITH 20ML WATER.
--- NOTE | 2017-05-16 23:10 | NUR ---
C/O RT HIP PAIN LEVEL 8 ON NUMBER SCALE. ADMIN DILAUDID 2MG IV PER REQUEST.
--- NOTE | 2017-05-17 03:12 | NUR ---
C/O RIGHT HIP PAIN LEVEL 8 ON NUMBER SCALE. ADMIN DILAUDID 2MG IV. WILL CONT TO MONITOR.
[2017-05-17 04:00] VITALS: BP 116/95
--- NOTE | 2017-05-17 05:00 | NUR ---
CHANGED CVL DRSG. ASSISTED OFFICE EQUIPMENT TECHNICIAN WITH GIVING BATH. PLACED DRSG ON SMALL SORE ON RIGHT BUTTOCK. CHANGED FEEDING TUBE BAGS. CHECKED RESIDUAL AT 10ML. INCREASED FEED 5ML FOR TOTAL OF 75ML/HR.
[2017-05-17 05:36] LABS: HEMATOCRIT 23.1 % (42.0-54.0); HEMOGLOBIN 7.2 g/dL (13.5-17.5); MCH 28.7 pg (26.0-34.0); MCHC 31.2 g/dL (31.0-37.0); RBC 2.51 10x6/uL (4.20-6.10); RDW 22.4 % (11.5-14.5); WBC 16.4 10x3/uL (4.8-10.8)
[2017-05-17 05:37] LABS: PLATELET COUNT 94 10x3/uL (130-400)
[2017-05-17 05:50] LABS: CALC OSMOLALITY 291 mosm/kg (275-300); CALCIUM 8.4 mg/dL (8.5-10.1); CARBON DIOXIDE 31.6 mmol/L (21.0-32.0); CHLORIDE - SERUM 106 mmol/L (98-107); CREATININE - SERUM 0.7 mg/dL (0.6-1.3); GLUCOSE 170 mg/dL (74-106); MAGNESIUM - SERUM 2.1 mg/dL (1.8-2.4); POTASSIUM - SERUM 3.3 mmol/L (3.5-5.1); SODIUM 142 mmol/L (136-145); eGFR NON AFRICAN AMERICAN > 90 mL/min (90-120)
[2017-05-17 05:52] LABS: PHOSPHOROUS 3.4 mg/dL (2.5-4.9); UREA NITROGEN 27 mg/dL (7-18)
[2017-05-17 06:13] LABS: ANISOCYTOSIS OCC; HYPOCHROMASIA OCC; LYMPHOCYTES 25 % (15-50); MONOCYTES 13 % (2-11); NEUTROPHILS 23 % (40-80); PLATELET ESTIMATE DECREASED; POIKILOCYTOSIS OCC; SCHISTOCYTES OCC
--- NOTE | 2017-05-17 07:17 | NUR ---
ADMIN 40MEQ PER PEG TUBE FOR POTASSIUM LAB VALUE 3.3. CHECKED RESIDUAL AT 2CC.
--- NOTE | 2017-05-17 09:27 | NUR ---
ASSESSMENT DONE. DENIES NEEDS.
--- NOTE | 2017-05-17 10:04 | NUR ---
RESTS WITH EYES CLOSED. RESP UL ON . TF INFUSING. WILL MONITOR NEEDS.
[2017-05-17 12:00] VITALS: BP 103/54
--- NOTE | 2017-05-17 12:20 | NUR ---
PT REQUESTED ICE CHIPS HOWEVER PRIMARY NURSE STATES HE CANT HAVE ANY UNTIL FURTHER SPEECH EVAL. PROVIDED ORAL CARE FOR PT AND LIP MOISTURIZOR FOR DRY CRACKED LIPS AND DRY MOUTH. PT VOICED THANKS AND DENIES ANY FURTHER NEEDS AT THIS TIME. CL IN REACH, BED IN LOWEST, SIDE RAILS X2 AND BUILT IN BED ALARM ON.
--- NOTE | 2017-05-17 13:58 | NUR ---
Nutrition Follow Up: Pt was with PT at the time of RD visit. Pt interview deferred at this time. Spoke with nursing who stated that pt is tolerating TF of Jevity 1.5 @ 75 ml/hr. Rec continue current TF regimen. RD following.
--- NOTE | 2017-05-17 17:01 | NUR ---
WITHOUT CHANGES OR DISTRESS NOTED AT THIS TIME. DENIES NEEDS AT SIDE.
[2017-05-17 17:54] VITALS: BP 124/58
[2017-05-17 20:00] VITALS: BP 108/68
[2017-05-18] VITALS: BP 103/65
--- NOTE | 2017-05-18 00:01 | NUR ---
INITIAL ROUNDS COMPLETED AT 1920 HRS. PT DENIED ANY DISCOMFORT. ASSESSMENT COMPLETED AT 1940 HRS. VSS. SR PER CM HR 78. JEVITY 1.5 RUNNING TO PEG AT 75CC/HR. PEG PATENT. 30 CC RESIDUAL NOTED. O2 3LNC. LUNGS DIMINISHED IN BASES BILAT. BILAT ARMS RED AND SWOLLEN. LTLSC WITH NS AT 20CC/HR TO MEDIAL PORT. PROXIMAL AND DISTAL PORTS SL. DILAUDID 2MG SIVP GINVE AT 2006 H RS FOR C/O CHRONIC HIP PAIN. PM MEDS GIVEN VIA PEG TUBE. PINEDA DRAINING YELLOW URINE. PT CURRENTLY RESTING WITH EYES CLOSED. RESP EVEN AND REGULAR. SR UP X2, CALL LIGHT WITHIN REACH.
--- NOTE | 2017-05-18 02:13 | NUR ---
TUBE FEEDING APPARTUS CHANGED. JEVITY 1.5 AT 75CC/HR WITH 55CC H2O FLUSH Q1 HRS. DILAUDID 2MG SIVP GIVEN FOR C/O HIP AND BACK PAIN. WILL CONTINUE TO MONITOR.
[2017-05-18 03:29] LABS: HEMATOCRIT 22.5 % (42.0-54.0); MCH 28.7 pg (26.0-34.0); MCHC 31.1 g/dL (31.0-37.0); MCV 92.2 fL (80.0-100.0); RBC 2.44 10x6/uL (4.20-6.10); RDW 22.7 % (11.5-14.5)
[2017-05-18 03:37] LABS: PLATELET COUNT 51 10x3/uL (130-400)
[2017-05-18 03:41] LABS: LYMPHOCYTES 28 % (15-50); MONOCYTES 13 % (2-11); NEUTROPHILS 40 % (40-80); PLATELET ESTIMATE DECREASED
[2017-05-18 03:48] LABS: CALC OSMOLALITY 290 mosm/kg (275-300); CALCIUM 8.2 mg/dL (8.5-10.1); CARBON DIOXIDE 32.4 mmol/L (21.0-32.0); CHLORIDE - SERUM 106 mmol/L (98-107); CREATININE - SERUM 0.6 mg/dL (0.6-1.3); GLUCOSE 123 mg/dL (74-106); POTASSIUM - SERUM 3.7 mmol/L (3.5-5.1); SODIUM 143 mmol/L (136-145); UREA NITROGEN 27 mg/dL (7-18); VANCOMYCIN - TROUGH 24.4 ug/mL (10.0-20.0); eGFR NON AFRICAN AMERICAN > 90 mL/min (90-120)
[2017-05-18 04:00] VITALS: BP 113/68
--- NOTE | 2017-05-18 04:52 | NUR ---
PT RESTING WITH EYES CLOSED. RESP EVEN AND REGULAR. SR UP X2, CALL LIGHT WITHIN REACH.
--- NOTE | 2017-05-18 06:24 | NUR ---
DILAUDID 2MG SIVP GIVEN FOR C/O CHRONIC HIP PAIN. VSS THROUGHOUT NIGHT. SR PER CM. PT RESTED WELL DURING SHIFT. NEEDS MET; WILL CONTINUE TO MONTIOR.
--- NOTE | 2017-05-18 06:26 | NUR ---
DR WATERS'S OFFICE PAGED AT 0620 HRS REGARDING H&H.
--- NOTE | 2017-05-18 06:41 | NUR ---
DR WATERS'S MECHANIC WELDER RETURNED CALL. INFORMED OF PT'S H&H. NEW ORDER RECIEVED AND NOTED.
--- NOTE | 2017-05-18 07:36 | NUR ---
PT SITTING UP IN BED. BLOOD DRAW FOR LAB COMPLETED FOR TYPE AND CROSS. PT TO RECEIVE 1 UNIT PRBC TODAY. ORAL CARE PROVIDED. PT DENIES ANY OTHER NEEDS WILL CONT TO MONITOR
[2017-05-18 08:10] VITALS: BP 120/57
--- NOTE | 2017-05-18 12:00 | NUR ---
PT TO HAVE 1 UNIT PRBC, CONSENT IS SIGNED AND ON THE CHART. PT PRE TRANSFUSION VS ARE WNL. PRBC INFUSING TO LEFT CHEST CVL WITHOUT ANY ISSUES. NO S/S TRANSFUSION REACTION WILL CONT TO MONITOR CLOSELY
--- NOTE | 2017-05-18 12:15 | NUR ---
PT PRBC STILL INFUSING TO LEFT CHEST CVL, VS ARE STILL WNL. NO S/S TRANSFUSION REACTION WILL CONT TO MONITOR
[2017-05-18 12:32] VITALS: BP 102/63
--- NOTE | 2017-05-18 13:20 | NUR ---
PT PRBC STILL INFUSING TO LEFT CVL NO PROBLEMS. VS ARE STILL WNL WILL CONT TO MONITOR
--- NOTE | 2017-05-18 14:22 | NUR ---
PT BLOOD TRANSFUSION IS COMPLETE. ALL VS HAVE BEEN WNL. DR DEWEY WANTED ONE TIME DOSE LASIX AFTER BLOOD TRANSFUSION, GIVEN. FAMILY AT BEDSIDE
--- NOTE | 2017-05-18 19:21 | NUR ---
RESUMED CARE OF PT, LYING IN BED RESPIRATIONS EVEN AND UNLABORED ON 3LPM VIA NC. 77 SR ON TELEMETRY. LEFT CVL INFUSING NS @ KVO. JEVITY 1.5 @ 75. PINEDA TO GRAVITY. REQUESTS PAIN MEDICATION. CALL LIGHT IN REACH. WILL CONTINUE TO MONITOR. SEE NURSE ASSESSMENT.
[2017-05-18 20:32] VITALS: BP 131/68
[2017-05-19 01:18] VITALS: BP 105/69
--- NOTE | 2017-05-19 01:34 | NUR ---
PEG TUBING REPLACED, LYING IN BED WITH EYES CLOSED. CALL LIGHT IN REACH. WILL CONTINUE TO MONITOR.
[2017-05-19 05:55] VITALS: BP 132/70
--- NOTE | 2017-05-19 06:15 | NUR ---
DILAUDID 2MG IVP GIVEN FOR HIP PAIN, NO CHANGES FROM PREVIOUS ASSESSMENT. CALL LIGHT IN REACH.
[2017-05-19 08:05] VITALS: BP 119/70
--- NOTE | 2017-05-19 08:21 | NUR ---
MEDICATED FOR PAIN AT THIS TIME. TOLERATING TUBE FEEDING WELL. PAGED AT 0800 TO OBTAIN ORDERS FOR LABS. AWAITING CALL BACK.
--- NOTE | 2017-05-19 09:11 | NUR ---
SPOKE WITH PHARMACY PRIOR TO ADMINISTERING VANCY TROUGH IS HIGH AND BRADEN STATED DOSE WAS ADJUSTED, SAFE TO ADMINISTER.
--- NOTE | 2017-05-19 09:39 | NUR ---
PAGED AGAIN. WAITING FOR CALL BACK.
[2017-05-19 10:56] LABS: HEMATOCRIT 26.7 % (42.0-54.0); MCH 29.3 pg (26.0-34.0); MCHC 31.8 g/dL (31.0-37.0); MCV 92.1 fL (80.0-100.0); RDW 21.6 % (11.5-14.5); WBC 14.1 10x3/uL (4.8-10.8)
[2017-05-19 10:59] LABS: HEMOGLOBIN 8.5 g/dL (13.5-17.5)
[2017-05-19 11:02] LABS: PLATELET COUNT 46 10x3/uL (130-400)
[2017-05-19 11:12] LABS: CALC OSMOLALITY 282 mosm/kg (275-300); CALCIUM 8.2 mg/dL (8.5-10.1); CARBON DIOXIDE 36.3 mmol/L (21.0-32.0); CHLORIDE - SERUM 103 mmol/L (98-107); CREATININE - SERUM 0.7 mg/dL (0.6-1.3); GLUCOSE 138 mg/dL (74-106); SODIUM 139 mmol/L (136-145); UREA NITROGEN 21 mg/dL (7-18); eGFR NON AFRICAN AMERICAN > 90 mL/min (90-120)
[2017-05-19 11:33] LABS: LYMPHOCYTES 40 % (15-50); MONOCYTES 3 % (2-11); NEUTROPHILS 38 % (40-80); PLATELET ESTIMATE DECREASED
--- NOTE | 2017-05-19 11:37 | NUR ---
IST UNIT PRBC'S INFUSING AT THIS TIME. NO BLOOD TRANSFUSION REACTION NOTE. FAMILY AT BEDSIDE. PATIENT CONVERSING. SPOKE TO AND HE SAID IT WAS OKAY FOR PATIENT TO RECEIVE BLOOD TRANSFUSION DURING BONE MARROW ASPIRATION.
--- NOTE | 2017-05-19 12:51 | NUR ---
BONE MARROW BIOPSY COMPLETED AT BEDSIDE WITH AT THIS TIME. PATIENT TOLERATED PROCEDURE WELL. 1ST UNIT PRBC'S CONTINUING TO INFUSE. NO DISTRESS.
--- NOTE | 2017-05-19 13:32 | NUR ---
MEDICATED FOR PAIN AT THIS TIME. NO DISTRESS. BLOOD PAUSED, CENTRAL LINE FLUSHED BEFORE AND AFTER PAIN MEDICATION ADMINISTRATION, BLOOD TRANSFUSION RESUMED. NO DISTRESS.
--- NOTE | 2017-05-19 17:21 | NUR ---
2ND UNIT OF PRBC'S COMPLETED TRANSFUSING AT THIS TIME. TOLERATED TRANSFUSION WELL. RESTING WITH EYES CLOSED. NO DISTRESS. EASILY AROUSED.
--- NOTE | 2017-05-19 18:20 | NUR ---
MEDICATED FOR HIP PAIN. NO DISTRESS.
--- NOTE | 2017-05-19 19:37 | NUR ---
RESUMED CARE OF PT, LYING IN BED WITH EYES CLOSED RESPIRATIONS EVEN AND UNLABORED ON 3LPM VIA NC. LEFT CVL INFUSING NS @ KVO. 69 SR ON TELEMETRY. IPNEDA TO GRAVITY. PEG TUBE INFUSING JEVITY 1.5 @ 75. CALL LIGHT IN REACH. WILL CONTINUE TO MONITOR. SEE NURSE ASSESSMENT.
[2017-05-19 20:35] VITALS: BP 125/68
--- NOTE | 2017-05-19 22:38 | NUR ---
BED BATH AND LINENS CHANGED, REPOSITIONED FOR COMFORT. CALL LIGHT IN REACH.
[2017-05-20 00:08] VITALS: BP 121/59
[2017-05-20 04:37] VITALS: BP 130/73
--- NOTE | 2017-05-20 07:16 | NUR ---
Nutrition Follow Up: Pt is tolerating TF of Jevity 1.5 @ 75 ml/hr which is goal rate. +BM 05/08/17 - no BM x 12 days??? Labs reviewed. Meds noted including Lasix. Rec continue current TF regimen. Rec bowel regimen. RD following.
[2017-05-20 08:00] VITALS: BP 124/61
--- NOTE | 2017-05-20 09:42 | NUR ---
RESTS WITH EYES CLOSRED. TF INFUSING. IV PATENT. CALL LIGHT IN REACH. WILL CONT. PLAN OF CARE.
--- NOTE | 2017-05-20 10:12 | NUR ---
ASSESSMENT COMPLETED. ALERT AND ORIENTED. TELEMERTY SHOWS SR 69. O2 AT 3 L/M . LEFT SUB CLAVIAN TRIPLE LUMAN, PATENT WITN NS AT KVO RIGHT ARM AND THIGHS SWOLEN. PINEDA CATH PATENT TO BEDSIDE DRAINAGE. PEG TUBLE WITH JEVITY 1.5 AT 75CC PATENT. SORE TO RIGHT FOOT. SR UP WITH CALL LIGHT IN REACH. WILL MONITOR
[2017-05-20 12:00] VITALS: BP 126/62
[2017-05-20 16:00] VITALS: BP 124/67
--- NOTE | 2017-05-20 18:22 | NUR ---
LAYING QUIETLY. EYES CLOSED. TELEMERTY SHOW SR. WILL MONITOR
[2017-05-20 19:00] VITALS: BP 127/74
--- NOTE | 2017-05-20 22:15 | NUR ---
PATIENT IS ALERT AND WATCHING TV, IV SITE IS PATENT. CALL LIGHT IN REACH.
[2017-05-21] VITALS: BP 128/77
[2017-05-21 04:32] VITALS: BP 121/64
[2017-05-21 06:11] LABS: CALC OSMOLALITY 284 mosm/kg (275-300); CALCIUM 8.7 mg/dL (8.5-10.1); CHLORIDE - SERUM 103 mmol/L (98-107); CREATININE - SERUM 0.6 mg/dL (0.6-1.3); GLUCOSE 105 mg/dL (74-106); POTASSIUM - SERUM 3.8 mmol/L (3.5-5.1); SODIUM 142 mmol/L (136-145); UREA NITROGEN 17 mg/dL (7-18); eGFR NON AFRICAN AMERICAN > 90 mL/min (90-120)
--- NOTE | 2017-05-21 07:10 | NUR ---
RECEIVED REPORT. ASSUMED CARE OF PATIENT. GT PATENT. IV INFUSING AT KVO. RESP EVEN AND UNLABORED. PATIENT ALERT THIS AM. NO DISTRESS.
[2017-05-21 08:48] VITALS: BP 131/75
--- NOTE | 2017-05-21 08:50 | NUR ---
MEDICATED FOR PAIN AT THIS TIME. NO DISTRESS.
--- NOTE | 2017-05-21 10:56 | NUR ---
DULCOLAX SUPP ADMINISTERED AT THIS TIME. NO DISTRESS. HARD STOOL FELT.
--- NOTE | 2017-05-21 11:35 | NUR ---
PT WORKING WITH PATIENT AT BEDSIDE. NO DISTRESS.
[2017-05-21 12:04] VITALS: BP 145/75
[2017-05-21 16:17] VITALS: BP 150/80
--- NOTE | 2017-05-21 18:16 | NUR ---
MEDICATED FOR PAIN AT THIS TIME.
--- NOTE | 2017-05-21 19:12 | NUR ---
BEDSIDE REPORT RECEIVED FROM AIMEE GIL. PT HAS NS INFUSING AT 10 TO LEFT SUBCLAVIN. SORE IN RIGHT BOTTOM FOOT RED AND SWOLLEN. TENDER. PURPLE AREA IN CENTER. PT STATES HE PUSHES THAT FOOT ON BED AND THATS WHY ITS SORE. PT HAS HOB AT 30. PT DENIES ANY NEEDS. URINE IN FOLLEY BAG IS YELLOW. PT HAS NO S/S OF DISTRESS. WILL CPOC
[2017-05-21 21:18] VITALS: BP 147/66
--- NOTE | 2017-05-21 23:00 | NUR ---
PT NEEDING BED FAY. ONLY SMALL AMOUNT OF STOOL OUTPUT. LIQUID. MIRALAX GIVEN ORDERED. SUPP. GIVEN REQUESTED. PT G TUBE FLUSHED AFTER MED PASS. PT LEFT SUBCLAVIN FLUSHED. PATENT. DRSG CDI. PT CLEANED MAMTA AREA AND BUTTOCK WHEN OFF BEDPAN. NEW PADS. MOISTURE BARRIER APPLIED. PT FOOTBOARD REMOVED TO STOP PRESSURE ON FEET. PT STATES THAT IT FEELS SO MUCH BETTER NOW THAT IT IS REMOVED. PT DENIES ANY NEEDS. NO S/S OF DISTRESS. WILL CPOC
--- NOTE | 2017-05-22 01:16 | NUR ---
CHANGED TUBING TO [place] PUMP. PT ASLEEP. RESPIRATIONS EVEN AND UNLABORED. NO S/S OF DISTRESS. WILL CPOC
[2017-05-22 06:49] LABS: HEMATOCRIT 30.4 % (42.0-54.0); HEMOGLOBIN 9.5 g/dL (13.5-17.5); MCH 28.9 pg (26.0-34.0); MCHC 31.3 g/dL (31.0-37.0); MCV 92.4 fL (80.0-100.0); RBC 3.29 10x6/uL (4.20-6.10); RDW 20.1 % (11.5-14.5); WBC 10.6 10x3/uL (4.8-10.8)
[2017-05-22 06:58] LABS: PLATELET COUNT 18 10x3/uL (130-400)
[2017-05-22 07:14] LABS: ALBUMIN 2.3 g/dL (3.4-5.0); ALKALINE PHOSPHATASE 76 U/L (46-116); ALT (SGPT) 37 U/L (10-68); BILIRUBIN - TOTAL 0.58 mg/dL (0.2-1.3); CALC OSMOLALITY 281 mosm/kg (275-300); CALCIUM 8.6 mg/dL (8.5-10.1); CHLORIDE - SERUM 99 mmol/L (98-107); CREATININE - SERUM 0.6 mg/dL (0.6-1.3); GLUCOSE 94 mg/dL (74-106); MAGNESIUM - SERUM 2.1 mg/dL (1.8-2.4); PHOSPHOROUS 3.7 mg/dL (2.5-4.9); POTASSIUM - SERUM 4.1 mmol/L (3.5-5.1); PROTEIN - SERUM 5.5 g/dL (6.4-8.2); SODIUM 141 mmol/L (136-145); UREA NITROGEN 15 mg/dL (7-18); eGFR NON AFRICAN AMERICAN > 90 mL/min (90-120)
[2017-05-22 07:34] LABS: ACANTHOCYTES OCC; ANISOCYTOSIS 1+; EOSINOPHILS 1 % (0-7); HYPOCHROMASIA OCC; LYMPHOCYTES 19 % (15-50); MONOCYTES 17 % (2-11); NEUTROPHILS 12 % (40-80); PLATELET ESTIMATE DECREASED; SCHISTOCYTES 1+; SMUDGE CELLS OCC
--- NOTE | 2017-05-22 07:37 | NUR ---
AM ROUNDS COMPLETED. INTRODUCED MYSELF TO PT PRIMARY RN FOR TODAYS SHIFT. SHIFT ASSESSMENT COMPLETED. PT A&O AND DENIES ANY CURRENT PAIN OR NEEDS. CL IN REACH, BED IN LOWEST, SIDE RAILS X2. WILL CPOC.
[2017-05-22 08:16] VITALS: BP 143/75
--- NOTE | 2017-05-22 10:09 | NUR ---
PT JUST GOT UP FROM BEDSIDE CHAIR NOW BACK IN BED. PT STATES IT FELT "AMAZING" TO BE OOB AND GET TO SIT. ELEVATED PTS R.ARM ON PILLOW AND APPLIED ICE PACK FOR SWELLING REDDNESS. PT VOICED THANKS AND DENIES ANY FURTHER NEEDS AT THIS TIME. CL IN REACH, BED IN LOWEST, SIDE RAILS X2 AND BUILT IN BED ALARM ON. WILL CPOC.
[2017-05-22 11:58] VITALS: BP 156/90
--- NOTE | 2017-05-22 12:23 | NUR ---
JUST ADMINISTERED PTS PRN PAIN MEDICATION AND DID LEFT CHEST STERILE DRSG CHANGE PER POLICY. PT JUST CALLED AND STATED HE NEEDED HIS PAIN MEDICATION. PT IS IN/OUT CONFUSED ON CURRENT SITUATION OR WHAT HAS BEEN TOLD/TAUGHT. REORIENTED PT AND HE VERBALIZED UNDERSTANDING. EMPTIED PINEDA OF 2100ML CLEAR YELLOW URINE. PT RESTING IN BED AND DENIES ANY FURTHER NEEDS AT THIS TIME. WILL CTM.
--- NOTE | 2017-05-22 15:29 | NUR ---
ORAL CARE PROVIDED. PT VOICED THANKS. PT SITTING UP IN BED RESTING QUIETLY AND STATES HE IS COMFORTABLE. RR NONLABORED. CL IN REACH. WILL CPOC.
--- NOTE | 2017-05-22 16:51 | NUR ---
Wound care: Right heel 1cm x 1cm x escar - states he's had this for a long time Right plantar - deep tissue injury Left plantar is a scab - Left buttocks has a scab that appears to have been a scratch. Pt is very tall so the foot board of the bed has been removed in order to relieve the pressure on bottom of feet. Discussed with pt and his the importance of turning/repositioning while in bed to relieve pressure and prevent skin break down. Pt voiced his understanding and demonstrated his ability to turn and change positions. Wound care will continue to monitor.
--- NOTE | 2017-05-22 16:51 | NUR ---
PTS R.FOOT HAS BOGGY REDDENED AREA FROM BOTTOM RAIL OF BED. RAIL REMOVED FOR COMFORT AND WOUND CARE NURSE AT BEDSIDE ASSESSING. ALL SKIN STILL BLANCHABLE AND INTACT. TEACHING PROVIDED TO PT AND AND ENCOURAGED PT TO TURN Q2H WHILE AWAKE. PT VERBALIZED UNDERSTANDING AND DENIES ANY CURRENT NEEDS. CL IN REACH, AT BEDSIDE, VISITORS IN ROOM. WILL CPOC.
--- NOTE | 2017-05-22 17:31 | NUR ---
PT CALLED REQUESTING PRN PAIN MEDICATION AND WAS PROVIDED WITH IT. REPOSITIONED PT ONTO HIS R.SIDE TO RELIEVE SOME PRESSURE OFF HIS BOTTOM. PT VOICED THANKS AND IS RESTING IN BED NO FURTHER NEEDS AT THIS TIME. WILL CPOC.
[2017-05-22 17:37] VITALS: BP 143/85
[2017-05-22 19:00] VITALS: BP 134/71
--- NOTE | 2017-05-22 20:00 | NUR ---
PATIENT IS ALERT IN BED WATCHING TV, STATES HE IS IN PAIN. PAIN MED GIVEN, FEEDING TUBE IS PATENT WITH JEVITY 1.5 RUNNING AT 75ML/HR. CALL LIGHT IN REACH.
[2017-05-23] VITALS: BP 127/71
--- NOTE | 2017-05-23 00:54 | NUR ---
PAYROLL ADMINISTRATIVE ASSISTANT AT BEDSIDE TO OBTAIN VITALS, CALL LIGHT IN REACH. WILL CONTINUE WITH PLAN OF CARE.
[2017-05-23 04:00] VITALS: BP 141/77
--- NOTE | 2017-05-23 07:40 | NUR ---
ASSESSMENT COMPLETED. TELEMERTY SHOWS SR. LEFT SUBCLAVIAN TRIPLE LUMAN IV, PEG TUBLE TO ABD. WITH JEVITY 1.5 AT 75 CC/ HR. PINEDA CATH PATENT TO GRAVITY BAG. SORES TO RIGHT FOOT. SR UP WITH CALL LIGHT IN REACH
[2017-05-23 08:06] VITALS: BP 131/64
--- NOTE | 2017-05-23 09:30 | NUR ---
UP N CHAIR PER PT. TOLORATED WELL. CALL LIGHT IN REACH WITH SR UP
--- NOTE | 2017-05-23 11:30 | NUR ---
BACK TO BED PER PT. LYING QUIETLY . SR UP WITH CALL LIGHT IN REACH
[2017-05-23 12:23] VITALS: BP 115/70
--- NOTE | 2017-05-23 12:58 | NUR ---
RESTING QUIETLY IN BED. MONITOR SHOWS NSR @ RATE OF69
--- NOTE | 2017-05-23 13:44 | NUR ---
Nutrition Follow Up: Pt was asleep at the time of RD visit. Spoke with nursing who reported that is tolerating TF of Jevity 1.5 @ 75 ml/hr with H20 flushes 55 ml/hr (goal rate). +BM 05/23/17. Meds noted including Lasix, Prednisone. Labs reviewed. Rec continue current TF, water flush regimen. RD following.
--- NOTE | 2017-05-23 18:34 | NUR ---
HOB UP. DENIES ANY NEEDS. SR UP WITH CALL LIGHT IN REACH. TELEMERTY SHOWS SR. SR UP WITH CALL LIGHT IN REACH
[2017-05-23 20:00] VITALS: BP 128/66
--- NOTE | 2017-05-23 22:44 | NUR ---
PATIENT IS ALERT LAYING IN BED, DENIES ANY NEEDS AT THIS TIME. CALL LIGHT IN REACH.
[2017-05-24] VITALS: BP 121/71
[2017-05-24 04:00] VITALS: BP 157/70
[2017-05-24 06:39] LABS: EOSINOPHILS 0.3 % (0-7); HEMATOCRIT 29.9 % (42.0-54.0); HEMOGLOBIN 9.1 g/dL (13.5-17.5); IMMATURE GRANULOCYTES 12.4 % (0-5); LYMPHOCYTES 28.5 % (15-50); MCH 28.4 pg (26.0-34.0); MCHC 30.4 g/dL (31.0-37.0); MCV 93.4 fL (80.0-100.0); MONOCYTES 9.9 % (2-11); NEUTROPHILS 45.9 % (40-80); RDW 19.9 % (11.5-14.5); WBC 8.7 10x3/uL (4.8-10.8)
[2017-05-24 06:41] LABS: PLATELET COUNT 16 10x3/uL (130-400)
[2017-05-24 06:48] LABS: APTT 27.7 SECONDS (22.8-39.4); INR 1.05 (0.85-1.17); PROTIME 13.5 SECONDS (11.6-15.0)
[2017-05-24 07:16] LABS: ALBUMIN 2.6 g/dL (3.4-5.0); ALKALINE PHOSPHATASE 73 U/L (46-116); ALT (SGPT) 32 U/L (10-68); BILIRUBIN - TOTAL 0.63 mg/dL (0.2-1.3); CALC OSMOLALITY 279 mosm/kg (275-300); CALCIUM 9.1 mg/dL (8.5-10.1); CARBON DIOXIDE 37.7 mmol/L (21.0-32.0); CHLORIDE - SERUM 100 mmol/L (98-107); CREATININE - SERUM 0.5 mg/dL (0.6-1.3); GLUCOSE 101 mg/dL (74-106); MAGNESIUM - SERUM 2.4 mg/dL (1.8-2.4); PHOSPHOROUS 4.5 mg/dL (2.5-4.9); POTASSIUM - SERUM 4.5 mmol/L (3.5-5.1); PROTEIN - SERUM 5.9 g/dL (6.4-8.2); SODIUM 140 mmol/L (136-145); UREA NITROGEN 16 mg/dL (7-18); eGFR NON AFRICAN AMERICAN > 90 mL/min (90-120)
--- NOTE | 2017-05-24 07:28 | NUR ---
AM ROUNDS- PT IN BED, RECEIVING UPDRAFT, RESP EVEN AND UNLABORED, LT CVL SL, FOLET DRAINING TO GRAVITY, JUAN COLORED URINE. FEEDING TUBE INFUSING JEVITY 1.5 AT 75CC/HR. PT DENIES ANY NEEDS AT THIS TIME. BED LOW AND WHEELS LOCKED, BEDSIDE RAILS X2, CALL LIGHT IN REACH, NAD NOTED, WILL CONTINUE TO MONITOR.
[2017-05-24 07:38] VITALS: BP 121/65
--- NOTE | 2017-05-24 11:07 | NUR ---
PER DR CHADWICK'S REQUEST, SPOKE WITH PATIENT AND HIS TAYO ABOUT SNF PLACEMENT BEFORE GOING HOME. THEY CHOSE [facility] IF THEY HAVE A BED. SPOKE WITH ROSALVA AT [facility]. INFORMATION WILL BE FAXED AND WILL WAIT FOR HER TO CALL BACK
[2017-05-24 11:51] VITALS: BP 124/73
--- NOTE | 2017-05-24 12:47 | NUR ---
2MG OF DILAUDID GIVEN FOR PAIN LEVEL OF 8/10. PT IN BED, DENIES ANY NEEDS AT THIS TIME. CALL LIGHT IN REACH, NAD NTOED, WILL CONTINUE TO MONITOR.
--- NOTE | 2017-05-24 13:03 | NUR ---
SPOKE WITH ROSALVA ROWAN, SHE STATED THAT THERE WAS A HUGE CONCERN ABOUT THE PATIENTS VARIANCE IN LABS AND THAT IT WOULD NOT BE COST EFFECTIVE FOR THEM TO TAKE HIM WITH THE GONSALVES OF HIS CHEMO MEDS. SO AT THIS TIME THEY WERE GOING TO HAVE TO SAY NO. SHE STATED IF HIS LABS EVER STABALIZE OUT, THEN CALL HER BACK AND THEY WOULD TAKE ANOTHER LOOK AT HIM. WILL RELAY THIS TO THE PATIENT.
--- NOTE | 2017-05-24 13:22 | NUR ---
SPOKE WITH . EXPLAINED THAT [facility] COULD NOT TAKE THE PATIENT. PER HER REQUEST, REFERRAL HAS BEEN SENT TO LUISITO AT [facility]. WILL AWAIT FOR THEIR DETERMINATION.
--- NOTE | 2017-05-24 15:37 | NUR ---
@1435, SPOKE WITH LUISITO AT [facility]. SHE STATED THAT THEY WOULD TAKE THE PATIENT. SHE QUESTIONED TO WHEN THE PATIENT WOULD BE DISCHARGED. I ASKED WHEN WOULD BE THE SOONEST THAT SHE WOULD BE WILLING TO TAKE HIM. SHE STATED THEY COULD TAKE HIM TODAY IF THE DOCTOR WAS WILLING TO DISCHARGE. @1437 CALLED AND SPOKE WITH DR CHADWICK AND HE STATED THAT HE WANTED TO GIVE THE PATIENT PLATELETS TONIGHT AND COULD DISCHARGE TOMORROW. IT WAS EXPLAINED THAT THEY DIDN'T TAKE NEW PATIENTS OF THE WEEKEND, BUT WOULD BE GOOD WITH SATURDAY AND DR CHADWICK SAID HE WOULD DISCHARGE THE PATIENT ON SATURDAY. @1438, CALLED AND EXPLAINED TO LUISITO THAT DR CHADWICK SAID HE WOULD DISCHARGE ON SATURDAY AND SHE SAID SHE WOULD CALL ON SATURDAY AND GIVE US A INSURANCE PROCESSING CLERK TIME. @ 1440, CALL WAS PLACED TO MRS ROLDAN AND THIS WAS EXPLAINED TO HER. SHE WAS GLAD THAT THEY WERE ABLE TO GET HIM INTO A PLACE CLOSE TO THE [facility]. SHE STATED SHE WOULD PLAN FOR HIM TO BE MOVED IN THERE SATURDAY. ENCOURAGED HER TO CALL BACK IF SHE HAD ANY QUESTIONS OR CONCERNS.
[2017-05-24 15:55] VITALS: BP 119/60
--- NOTE | 2017-05-24 21:16 | NUR ---
HS MEDS GIVEN VIA PEG TUBE. FLUSHED THROUGHLY WITH WATER. ASSISTED PT WITH USE OF BED FAY.
[2017-05-25] VITALS: BP 119/65
--- NOTE | 2017-05-25 00:07 | NUR ---
FEEDING PUMP TUBING CHANGED, JEVITY 1.5 VALERIE INFUSING AT 77 CC/HR WITH A FLUSH OF 55 CC/HR. PT DENIES PAIN OR NEEDS, BED LOW, CL IN REACH.
--- NOTE | 2017-05-25 02:59 | NUR ---
PHARMACY DIRECTOR AT BED SIDE TO OFFER PT A BATH, PT DECLINED AT THIS TIME.
--- NOTE | 2017-05-25 03:07 | NUR ---
DILAUDID 2 MG GIVEN AT PT REQUEST FOR C/O PAIN.
[2017-05-25 04:00] VITALS: BP 122/72
--- NOTE | 2017-05-25 07:05 | NUR ---
RECEIVED REPORT. ASSUMED CARE OF PATIENT. RESTING WITH EYES CLOSED.EASILY AROUSED. RESP EVEN AND UNLABORED. GT INFUSING JEVITY AT 75ML/HR = [employer] GOAL. TRIPLE LUMEN SUBCLAVIAN TO LEFT CHEST SALINE LOCKED. DENIES NEEDS AT THIS TIME. F/C PATENT. NO DISTRESS.
--- NOTE | 2017-05-25 08:15 | NUR ---
MEDICATED FOR PAIN AT THIS TIME. NO DISTRESS.
[2017-05-25 08:45] VITALS: BP 123/100
--- NOTE | 2017-05-25 11:29 | NUR ---
MEDICATED FOR PAIN AT THIS TIME. NO DISTRESS.
[2017-05-25 12:40] VITALS: BP 121/65
[2017-05-25 16:24] VITALS: BP 113/61
--- NOTE | 2017-05-25 16:35 | NUR ---
1ST UNIT PLATLETS INFUSING AT THIS TIME. NO S/S COMPLICATIONS. NO DISTRESS.
--- NOTE | 2017-05-25 17:15 | NUR ---
2ND UNIT PLATELETS COMPLETED AT THIS TIME. NO DISTRESS. MEDICATED FOR PAIN AFTER PLATELETS COMPLETED INFUSING. CALL LIGHT WITHIN REACH.
[2017-05-25 20:00] VITALS: BP 123/69
--- NOTE | 2017-05-25 20:43 | NUR ---
PT RESTING IN BED. ALERT/ORIENTED. BURNS PAIUTE. LEFT CHEST WALL CVL SALINE LOCKED. PEG TUBE FEEDINGS IN PLACE. PT NPO EXCEPT FOR ICE CHIPS. C/O PAIN TO BACK AND HIP, MEDICATED WTIH DILAUDID 1MG SIVP. SEE SHIFT ASSESSMENT. CPOC.
--- NOTE | 2017-05-25 23:40 | NUR ---
MEDICATED FOR PAIN 04/04 WITH DILAUDID 2MG SIVP. PT AWAKE/ALERT/ORIENTED. CPOC.
[2017-05-26] VITALS: BP 123/63
[2017-05-26 02:08] VITALS: BP 115/66
[2017-05-26 04:00] VITALS: BP 124/71
--- NOTE | 2017-05-26 04:54 | NUR ---
PT AWAKE WITH C/O FEET/BACK/HIP PAIN. CURING MACHINE OPERATOR APPLIED CREAM TO FEET. ADMINISTERED IV DILAUDID 2MG SIVP FOR PAIN. ICE CHIPS PROVIDED. CALL LIGHT IN REACH. CPOC.
--- NOTE | 2017-05-26 07:37 | NUR ---
RECIEVED REPORT ON PATIENT, PATIENT IS RESTING AT THIS TIME, NAD NOTED. AROUSES TO VOICE. PATIENT BED IS LOW AND LOCKED CALL LIGHT IN REACH. PATIENT DENIES ANY NEEDS AT THIS TIME. SR ON MONITOR WITH A RATE OF 74. PATIENT ALSO HAS A CVL THAT IS SL. AND A PEG TUBE WITH JEVITY 1.5 VALERIE INFUSING AT 75ML/HR. TOLERATING WELL. WILL CONT TO MONITOR PATIENT. CPOC
[2017-05-26 08:00] VITALS: BP 106/61
--- NOTE | 2017-05-26 09:30 | NUR ---
MORNING MEDICATION GIVEN THROUGH PEG TUBE AND FLUSHED WITH 60 ML OF H2O. PATIENT DENIES ANY NEEDS. CPOC
[2017-05-26 11:00] VITALS: BP 102/62
--- NOTE | 2017-05-26 11:50 | NUR ---
PATIENT GIVEN 2 MG OF DILAUDID FOR PAIN 04/04. PATIENT AT BEDSIDE. PATIENT DENIES ANY FURTHER NEEDS. CPOC
[2017-05-26 12:52] LABS: HEMATOCRIT 29.7 % (42.0-54.0); HEMOGLOBIN 9.1 g/dL (13.5-17.5); MCH 28.4 pg (26.0-34.0); MCHC 30.6 g/dL (31.0-37.0); MCV 92.8 fL (80.0-100.0); RDW 19.3 % (11.5-14.5); WBC 7.8 10x3/uL (4.8-10.8)
[2017-05-26 12:55] LABS: PLATELET COUNT 78 10x3/uL (130-400)
[2017-05-26 13:02] LABS: INR 1.02 (0.85-1.17); PROTIME 13.2 SECONDS (11.6-15.0)
[2017-05-26 13:07] LABS: ALKALINE PHOSPHATASE 84 U/L (46-116); ALT (SGPT) 32 U/L (10-68); BILIRUBIN - TOTAL 0.86 mg/dL (0.2-1.3); CALC OSMOLALITY 282 mosm/kg (275-300); CALCIUM 9.5 mg/dL (8.5-10.1); CARBON DIOXIDE 35.1 mmol/L (21.0-32.0); CHLORIDE - SERUM 99 mmol/L (98-107); CREATININE - SERUM 0.6 mg/dL (0.6-1.3); MAGNESIUM - SERUM 2.2 mg/dL (1.8-2.4); PHOSPHOROUS 3.9 mg/dL (2.5-4.9); POTASSIUM - SERUM 4.7 mmol/L (3.5-5.1); PROTEIN - SERUM 6.6 g/dL (6.4-8.2); SODIUM 139 mmol/L (136-145); UREA NITROGEN 19 mg/dL (7-18); eGFR NON AFRICAN AMERICAN > 90 mL/min (90-120)
[2017-05-26 13:08] LABS: GLUCOSE 159 mg/dL (74-106)
[2017-05-26 13:14] LABS: LYMPHOCYTES 28 % (15-50); MONOCYTES 2 % (2-11); NEUTROPHILS 52 % (40-80); PLATELET ESTIMATE DECREASED
[2017-05-26 13:15] LABS: SCHISTOCYTES 1+
--- NOTE | 2017-05-26 14:00 | NUR ---
DILUADID 2MG GIVEN IV FOR PAIN 04/04. WILL CONT TO MONITOR. CPOC
--- NOTE | 2017-05-26 16:30 | NUR ---
DILUADID GIVEN FOR PAIN 04/04. WILL CONT TO MONITOR. CPOC SR RATE OF 67. CPOC
--- NOTE | 2017-05-26 18:09 | NUR ---
PATIENT RESTING IN BED, DENIES ANY NEEDS. PAIN 03/04. WILL CONT TO MONITOR PATIENT. JEVITY 1.5 STILL INFUSING AT 75ML/HR THROUGH PEG TUBE. BED LOW AND LOCKED. CPOC
--- NOTE | 2017-05-26 23:25 | NUR ---
INITIAL ROUNDS COMPLETED AT 1920 HRS. PT REQUESTING PAIN MEDS. DILAUDID 2MG SIVP GINVE AT 1936 RS. ASSESMENT COMPLETED AT 1940 HRS. SR PER CM HR 69. O2 3LNC. PT [place]. LTLSC SL. LUNGS DIMINISHED IN BASES BILAT. BRUISES NOTED TO BIAT ARMS. BUTTOCKS SLIGHTLY RED. PEG TUBE WITH JEVITY 1.5 AT 75CC/HR. MINIMAL RESIDUAL NOTED. PINEDA DRAINING YELLOW URINE. DILAUDID 2MG SIVP GINVE AT 2200 HRS FOR C/O HIP PAIN. PM MMEDS GIVEN. PT CURRENTLY RESTING WITH EYES CLOSED. RESP EVEN AND REGULAR. SR UP X2, CALL LIGHT WITHN REACH.
[2017-05-27] VITALS: BP 118/65
--- NOTE | 2017-05-27 00:47 | NUR ---
DILAUDID 2MG SIVP GIVEN FOR C/O SEVERE HIP PAIN. NEW ENTERAL FEEDING BAG UP WITH JEVITY 1.5 AT 75CC/HR AND 55CC OF H2O FLUSH Q 1HR. PT REPOSITIONED IN BED FOR COMFORT. WILL CONTINUE TO MONITOR.
--- NOTE | 2017-05-27 02:44 | NUR ---
PT RESTING WITH EYES CLOSED. RESP EVEN AND REGULAR. SR UP X2, CALL LIGHT WITHIN REACH.
--- NOTE | 2017-05-27 04:49 | NUR ---
PT RESTNG WITH EYES CLOSED. RESP DEEP. SOME SLEEP APNEA NOTED WITH PAUSE APPROX 10 SECONDS. WILL CONTINUE TO MONITOR.
--- NOTE | 2017-05-27 05:17 | NUR ---
NOTIFIED AT 0552 THAT PT WAS IN UCAF HR IN 130'S. PT AWAKEN AND INFORMED. PT ASYMPTOMATIC. BP 120/70. RESP 16 . O2 SAT 99% ON 1LNC. HR FLUCUATING 120'S TO 150'S. AM CORDARONE PULLED. PT BACK TO NSR HR 88 AM CORDARONE BEING ADMINISTERED VIA PEG TUBE. WILL CONTINUE TO MONITOR.
--- NOTE | 2017-05-27 06:26 | NUR ---
PT HAS C/O CHEST PAIN. STATES PAIN WITH DEEP INSPIRATION, MOVEMENT AND WHEN AREA OVER L CHEST PRESSED ONN. VSS. ST PER CM HR 109. BP 119/66 AND O2 SAT 99% ON 1LNC. ALSO HAS C/O HIP PAIN. DILAUDID 2MG TO BE ADMINISTERED.
--- NOTE | 2017-05-27 07:25 | NUR ---
AM ROUNDS- PT IN BED, PT A LITTLE CONFUSED. PT C/O NOT FEELING GOOD TODAY, STATES " I KEEP HAVING HEADACHES AND I DONT KNOW WHERE THEY COME FROM. I GUESS I KEEP MIXING MY PILLS WHEN I TAKE THEM." INFOMRED PT THAT HE RECEIVED PAIN MED AROUND 0630 THIS AM, AND ASKED HIM IF HIS PAIN WAS GETTING BETTER. PT STATED " I GOT A LITTLE BETTER." PT DENIES ANY NEEDS AT THIS TIME. RESP EVEN AND UNLABORED, LT CVL SL. BED LOW AND WHEELS LOCKED, BEDSIDE RAILS X2, PINEDA DRAINING TO GRAVITY, URINE YELLOW. CALL LIGHT IN REACH, NAD NOTED, WILL CONTINUE TO MONITOR.
[2017-05-27 08:00] VITALS: BP 100/64
--- NOTE | 2017-05-27 08:54 | NUR ---
AM MEDS ADMINSITERED THROUGH PEG TUBE, FLUSHED WITH 60CC AFTER MEDS WERE GIVEN. PT IN BED, DENIES ANY NEEDS AT THIS TIME. STILL A LITTLE CONFUSED. NAD NOTED, WILL CONTINUE TO MONITOR.
[2017-05-27] MEDS ORDERED: COLACE100 MG PO (09:58)
[2017-05-27] MEDS ORDERED: ULTRAM50 MG PO (09:58)
[2017-05-27] MEDS ORDERED: HYDROCODON-ACE1 EAC7 PO (09:58)
[2017-05-27] MEDS ORDERED: KLONOPIN1 MG PO (09:58)
[2017-05-27] MEDS ORDERED: PREDNISONE20 MG PO (09:59)
--- NOTE | 2017-05-27 11:17 | NUR ---
Patient Name: ISADORA ROLDAN Encounter No: [id number] : 1950 Primary Insurance: MEDICARE A & B Anticipated DC Date: 05-27-2017 Planned Disposition: Senior Care Facility External Planned Provider: [facility], MEDICARE REHAB BED DCP follow-up note: CM RECEIVED DISCHARGE ORDER, MET WITH PT IN ROOM, DISCUSSED DISCHARGE PLAN TO [facility]. PT IN AGREEMENT WITH DISCHARGE TO REHAB AT [facility], HE IS NOT SURE IF HE IS ABLE TO SIT FOR THE TRIP IN A WHEELCHAIR VAN AND WOULD LIKE CM TO CALL HIS TO ENSURE SHE KNOWS HE IS GOING TODAY. IMPORTANT MESSAGE FROM MEDICARE PROVIDED AND EXPLAINED. ABDON CALLED PT'S SPOUSE, TAYO, , WHO VERIFIED DISCHARGE PLAN FOR [facility] FOR TODAY, SHE IS WAITING ON INSTRUCTIONS FROM [facility] TO COME AND FILL OUT PAPERWORK AT FACILITY. ABDON CALLED AND SPOKE TO LUISITO OF [facility], , WHO WILL CALL PT'S SPOUSE AT HOME AND PROVIDE INSTRUCTIONS AND INFORMATION FOR ADMIT TODAY. VAN WILL [employer] OPERATOR PT AFTER NOON TODAY. BUILDINGS PAINTER NURSE NOTIFIED. PT NOTIFIED. CM FAXED DISCHARGE INFORMATION TO [facility] AT [phone]. NURSE REPORT TO BE CALLED TO [facility] AT [phone], [facility] V[facility] TO TRANSPORT AFTER NOON TODAY. Mark Sauer, CASE MANAGEMENT
--- NOTE | 2017-05-27 11:35 | NUR ---
D/C PINEDA CATHETER PER DR. ANDREWS, REMOVED 10CC OF NS OUT OF BALLOON. ALSO D/C LT CHEST CVL, TIP INTACT. APPLIED PRESSURE FOR 10MIN THEN COVERED WITH 4X4 AND TEGADERM. PT TOLERATED PROCEDURE WELL. PT DENIES ANY NEEDS AT THIS TIME. CALL LIGHT IN REACH, NAD NOTED, WILL CONTINUE TO MONITOR.
--- NOTE | 2017-05-27 12:28 | NUR ---
1219- [facility] AT [phone], GAVE REPORT TO DELMAR VU WHO WILL BE TAKING CARE OF PT. 1227- PROVIDED VERBAL AND WRITTEN DISCHARGE TEACHING TO PT, PT VERBALIZED UNDERSTANDING REGARDING TEACHING. PT DENIES ANY NEEDS AT THIS TIME. CALL LIGHT IN REACH, NAD NOTED, WILL CONTINUE TO MONITOR.
--- NOTE | 2017-05-27 13:02 | NUR ---
[facility] SELLERS STAFF HERE TO FLATWORK FEEDER PT. PT TRANSFERED TO WHEELCHAIR , BY [employer] MANAGEMENT SPECIALIST. PT LEFT UNIT ACCOMPANIED BY [employer] SELL[employer] STAFF. NAD NOTED.
[2017-06-07 14:23] LABS: FUNGUS MYCOLOGY CULTURE Final report (())
[2017-06-30 09:08] LABS: ACID FAST CULTURE Negative (()); ACID FAST SMEAR Negative (())
== END 2017-05-27 13:04 | DRG 177 ==
LOC: D.ER 13:11 → D.ICU 14:38 → D.M2 14:38 → D.MS 14:38 → D.ICU 16:07 → D.MS 05-02 16:22 → D.M2 05-09 21:25
PROVIDERS: Emergency Medicine; Internal Medicine Pulmonary Disease; Student in an Organized Health Care Education/Training Program; ADMIT Legal Medicine
PROC: 0BB38ZX Excision of Right Main Bronchus, Via Natural or Artificial Opening Endoscopic, Diagnostic (ICD-10-PCS; 2017-05-09)
PROC: 0BB78ZX Excision of Left Main Bronchus, Via Natural or Artificial Opening Endoscopic, Diagnostic (ICD-10-PCS; principal; 2017-05-09 15:32)
PROC: 02HV33Z Insertion of Infusion Device into Superior Vena Cava, Percutaneous Approach (ICD-10-PCS; 2017-05-11)
PROC: 0DH63UZ Insertion of Feeding Device into Stomach, Percutaneous Approach (ICD-10-PCS; 2017-05-13)
DX: J69.0 Pneumonitis due to inhalation of food and vomit (principal); J96.01 Acute respiratory failure with hypoxia; I50.33 Acute on chronic diastolic (congestive) heart failure; C91.10 Chronic lymphocytic leukemia of B-cell type not having achieved remission; B00.2 Herpesviral gingivostomatitis and pharyngotonsillitis; D61.818 Other pancytopenia; D64.81 Anemia due to antineoplastic chemotherapy; I48.0 Paroxysmal atrial fibrillation; I95.9 Hypotension, unspecified; I08.1 Rheumatic disorders of both mitral and tricuspid valves; R51 Headache; Z85.72 Personal history of non-Hodgkin lymphomas; R41.0 Disorientation, unspecified; K59.00 Constipation, unspecified; I27.20 Pulmonary hypertension, unspecified

== ENCOUNTER 2017-06-13 17:22 | Inpatient (IN) | payer MEDICARE, BC ==
[2017-06-13 18:05] LABS: HEMATOCRIT 22.2 % (42.0-54.0); MCH 28.2 pg (26.0-34.0); MCV 88.1 fL (80.0-100.0); RBC 2.52 10x6/uL (4.20-6.10); WBC 10.8 10x3/uL (4.8-10.8)
[2017-06-13 18:07] LABS: HEMOGLOBIN 7.1 g/dL (13.5-17.5); PLATELET COUNT 6 10x3/uL (130-400)
[2017-06-13 18:20] LABS: ALBUMIN 2.8 g/dL (3.4-5.0); ALKALINE PHOSPHATASE 83 U/L (46-116); ALT (SGPT) 16 U/L (10-68); BILIRUBIN - TOTAL 0.77 mg/dL (0.2-1.3); CALC OSMOLALITY 282 mosm/kg (275-300); CALCIUM 8.3 mg/dL (8.5-10.1); CHLORIDE - SERUM 101 mmol/L (98-107); CREATININE - SERUM 0.8 mg/dL (0.6-1.3); GLUCOSE 121 mg/dL (74-106); POTASSIUM - SERUM 4.5 mmol/L (3.5-5.1); PROTEIN - SERUM 6.4 g/dL (6.4-8.2); SODIUM 139 mmol/L (136-145); UREA NITROGEN 23 mg/dL (7-18); eGFR NON AFRICAN AMERICAN > 90 mL/min (90-120)
[2017-06-13 18:27] LABS: CREATINE KINASE 11 UL (21-232); MAGNESIUM - SERUM 2.1 mg/dL (1.8-2.4); PRO BNP 1893 pg/mL (0-125); TROPONIN-I 0.025 ng/mL (0.000-0.060)
[2017-06-13 18:38] LABS: BASOPHILS 3 % (0-2); LYMPHOCYTES 39 % (15-50); MONOCYTES 38 % (2-11); NEUTROPHILS 12 % (40-80)
[2017-06-13 18:43] LABS: PLATELET ESTIMATE DECREASED; TEAR DROP CELLS OCC
[2017-06-13 18:44] LABS: HOWELL JOLLY BODIES OCC
[2017-06-13 18:45] LABS: TARGET CELLS OCC
--- NOTE | 2017-06-13 21:54 | NUR ---
PT REQUESTED PAIN MED AND STATED NAUSEOUS, PAGED DR LOU AND NURSE PRACTITIONER THU CALLED BACK. ORDERED HORCO 5 GIVE 1-2 PRN PAIN Q6 AND ZOFRAN, ALSO STATED TO START PT HOME MEDS. WILL CONTINUE WITH PLAN OF CARE
--- NOTE | 2017-06-13 22:45 | NUR ---
STARTED PT'S PLATELETS AT 2235, PT'S BLOOD PRESSURE HAS BEEN LOW SINCE ADMIT, PT STATED THAT IS NORMAL FOR HIM LATELY. PULSE RANGES FROM 74-82. NO SIGNS OF DISTRESS, TOLERATING WELL.
[2017-06-13 23:54] VITALS: BP 84/50; BMI 17.8
--- NOTE | 2017-06-14 00:49 | NUR ---
PT CONCERNED WITH NUTRITION, STATES HE GETS BOLUS OF JEVITY DURING THE NIGHT AND HAS NOT HAD ANYTHING SINCE NOON, REASSURED PT THAT CONSULT WITH DISCIPLINARY HEARING OFFICER IS PUT IN. WILL CONTINUE PLAN OF CARE, PT IS GETTING UNIT OF BLOOD, NO SIGNS OF DISTRESS
[2017-06-14 04:00] VITALS: BP 97/58
[2017-06-14 06:19] LABS: BASOPHILS 1.1 % (0-2); EOSINOPHILS 0 % (0-7); HEMOGLOBIN 7.6 g/dL (13.5-17.5); IMMATURE GRANULOCYTES 12.1 % (0-5); MCH 28.1 pg (26.0-34.0); MCHC 31.7 g/dL (31.0-37.0); MCV 88.9 fL (80.0-100.0); MEAN PLATELET VOLUME 9.7 fL (7.4-10.4); MONOCYTES 33.2 % (2-11); NEUTROPHILS 42.6 % (40-80); RDW 17.6 % (11.5-14.5); WBC 9.6 10x3/uL (4.8-10.8)
[2017-06-14 06:20] LABS: PLATELET COUNT 109 10x3/uL (130-400)
--- NOTE | 2017-06-14 07:49 | NUR ---
AWAKE AND ALERT. ORIENTED X3. NO C/O AT THIS TIME.LUNGS ARE CLEAR BILATERALLY, NO COUGH NOTED. SKIN IS INTACT WITHOUT REDNESS EXCEPT SMALL SPOT ON RIGHT HEEL WHICH IS ALMOST HEALED. SL TO LEFT HAND PATENT WTIHOUT REDENESS AT INSERTION SITE. PEG TUBE PATENT WITHOUT REDNESS AT INSERTION SITE. DENIES NEEDS.
[2017-06-14 08:18] VITALS: BP 98/59
[2017-06-14 10:46] VITALS: BMI 17.7
[2017-06-14 11:51] VITALS: BP 102/61
--- NOTE | 2017-06-14 15:12 | NUR ---
SPOKE WITH LUISITO AT [facility] RE TRANSPORTATION FOR THE WEEKEND IS HE WAS TO GET DISCHARGED AND SHE SAID THIS WOULD NOT BE A PROBLEM.
--- NOTE | 2017-06-14 16:15 | NUR ---
REQUESTED AND GIVNE ONE HYDROCODONE VIA PEG FOR C/O BACK, HIP AND FOOT PAIN LEVEL 8. WILL MONITOR.
--- NOTE | 2017-06-14 16:29 | NUR ---
REQUESTED AND GIVEN ONE HYDROCODONE PO FOR C/O BACK HIP AND FOOT PAIN LEVEL 8. WILL MONITOR.
[2017-06-14 17:33] VITALS: BP 103/61
--- NOTE | 2017-06-14 17:50 | NUR ---
UP TO BR WITH ONE PERSON MOD ASSIST. NO BM AT THIS TIME. REPOSITIONED IN BED FOR COMFORT.
--- NOTE | 2017-06-14 18:15 | NUR ---
NO CHANGES NOTED. RESTING QUIETLY IN BED. DENIES NEEDS.
[2017-06-14 20:00] VITALS: BP 98/57
[2017-06-15] VITALS: BP 106/68
[2017-06-15 04:38] VITALS: BP 127/71
--- NOTE | 2017-06-15 06:53 | NUR ---
ASSESSED AT THE BEGINNING OF THE SHIFT. PT IS ALERT AND ORIENTED, ABLE TO VERBALIZE NEEDS. THE HOB IS AT 30 DEGREES DUE TO TUBE FEEDING AND HE HAS TOLERATED ALL HIS FEEDING WELL WITH LESS THAN 40 CC'S OF RESIDUAL WHEN CHECKED. IT HAS BEEN INCREASED X'S 2 DURING THE NIGHT WITH THE LAST TIME TO RAISE IT 10 CC'S WAS AT 0600. ALL MEDS HAVE GONE DOWN HIS G-TUBE AND HE HAS NOT HAD ANY NAUSEA. HE IS USING A URINAL TO VOID AND MEDS HAVE BEEN GIVEN ORDERED. AT HIS TIME HE IS RESTING WITH EASY RESPIRATIONS AND NO DISTRESS.
[2017-06-15 07:36] LABS: BASOPHILS 1.9 % (0-2); EOSINOPHILS 0.1 % (0-7); HEMATOCRIT 24.7 % (42.0-54.0); HEMOGLOBIN 7.9 g/dL (13.5-17.5); IMMATURE GRANULOCYTES 16.6 % (0-5); LYMPHOCYTES 19.5 % (15-50); MCH 28.3 pg (26.0-34.0); MCV 88.5 fL (80.0-100.0); MEAN PLATELET VOLUME 9.2 fL (7.4-10.4); MONOCYTES 13.6 % (2-11); NEUTROPHILS 48.3 % (40-80); RBC 2.79 10x6/uL (4.20-6.10); WBC 11.8 10x3/uL (4.8-10.8)
[2017-06-15 07:39] LABS: PLATELET COUNT 69 10x3/uL (130-400)
[2017-06-15 07:59] LABS: ALBUMIN 2.7 g/dL (3.4-5.0); ALKALINE PHOSPHATASE 85 U/L (46-116); ALT (SGPT) 18 U/L (10-68); BILIRUBIN - TOTAL 0.72 mg/dL (0.2-1.3); CALC OSMOLALITY 279 mosm/kg (275-300); CALCIUM 8.2 mg/dL (8.5-10.1); CARBON DIOXIDE 30.8 mmol/L (21.0-32.0); CHLORIDE - SERUM 103 mmol/L (98-107); CREATININE - SERUM 0.6 mg/dL (0.6-1.3); GLUCOSE 113 mg/dL (74-106); PROTEIN - SERUM 5.8 g/dL (6.4-8.2); SODIUM 139 mmol/L (136-145); UREA NITROGEN 16 mg/dL (7-18); eGFR NON AFRICAN AMERICAN > 90 mL/min (90-120)
--- NOTE | 2017-06-15 08:08 | NUR ---
AWAKE AND ALERT. ORIENTED X3. NO C/O THIS AM. LUNGS ARE CLEAR BILATERALLY, NO COUGH NOTED.SKIN IS INTACT WITHOUT REDNESS. PEG TUBE PATENT WITH JEVITY 1.5 AT 65CC AN HOUR VIA PUMP. DENIES NEEDS.
[2017-06-15 08:36] VITALS: BP 108/61
--- NOTE | 2017-06-15 09:00 | NUR ---
GIVEN AM MEDS VIA PEG. RESIDUAL CHECK WAS 10CC. RATE INCREASED TO GOAL OF 75CC HOUR VIA PUMP.
--- NOTE | 2017-06-15 11:10 | NUR ---
REQUESTED AND GIVEN ONE HYDROCODONE PO FOR C/O BACK AND HIP PAIN LEVEL 7. WILL MONITOR.
[2017-06-15] MEDS ORDERED: COLACE100 MG PO (11:54)
[2017-06-15] MEDS ORDERED: KLONOPIN1 MG PO (11:54)
[2017-06-15] MEDS ORDERED: HYDROCODON-ACE1 EAC7 PO (11:54)
[2017-06-15] MEDS ORDERED: PREDNISONE20 MG PO (11:54)
[2017-06-15] MEDS ORDERED: ULTRAM50 MG PO (11:54)
[2017-06-15 13:43] VITALS: BP 92/52
--- NOTE | 2017-06-15 14:18 | NUR ---
PATIENT SAID HE CALLED HIS AND TOLD HER HE WAS RETURNING TO [facility] TODAY. REPORT CALLED TO ML LANCASTER LPN AT THE FACILITY. ALL QUESTIONS ANSWERED.
--- NOTE | 2017-06-15 14:35 | NUR ---
Patient Name: ISADORA ROLDAN Admission Status: ER Accout number: [id number] Admission Date: 06-13-2017 : 1950 Admission Diagnosis:ANEMIA, UNSPECIFIED Attending: JAS CHADWICK Current LOS: 2 Anticipated DC Date: 06-15-2017 Planned Disposition: Nursing Facility [facility]KKI Cert Primary Insurance: MEDICARE A & B Discharge Planning Comments: PATIENT IS FOR DISCHARGE BACK TO [facility] TO A SKILLED REHAB BED. CM SPOKE WITH KIARRA AT [facility] TO VERIFY BED. HE WAS RECENTLY DISCHARGE TO FACILITY. CHART COPY IS AVAILABLE TO GO WITH THE PATIENT AND HIS DISCHARGE INSTRUCTIONS. [facility] WILL PROVIDE TRANSPORTATION AT 1430. THE PATIENT TOLD THE NURSE HE HAD CALLED HIS TO ADVISE HER OF THE DISCHARGE. AAKASH, THE PRIMARY NURSE, CALLED HIS AND LEFT A MESSAGE. Supervisor Graphite: Lila Gamboa
--- NOTE | 2017-06-15 15:15 | NUR ---
DISCHARGED TO [facility] VIA AND THEIR TRANSPORT. PEG FLUSHED WITH 50CC WATER AT THIS TIME. CALLED MRS. ROLDAN AND JUAN MIGUEL ABOUT RETURN TO [facility]
== END 2017-06-15 15:15 | DRG 812 ==
LOC: D.ER 17:22 → D.MS 18:40
PROVIDERS: Emergency Medicine; ADMIT Legal Medicine
DX: D46.9 Myelodysplastic syndrome, unspecified (principal); C91.10 Chronic lymphocytic leukemia of B-cell type not having achieved remission; R13.10 Dysphagia, unspecified

== ENCOUNTER → 2017-06-20 12:33 | Outpatient (CLI) | payer MEDICARE, BC ==
[2017-06-14 10:46] VITALS: BMI 17.7
== END | disposition home or self-care (01) ==
LOC: D.RAD 12:33
DX: R13.12 Dysphagia, oropharyngeal phase (principal)